=== PATIENT | male | born 1940 | race Caucasian/White ===

== ENCOUNTER 2021-10-16 19:14 | Emergency (ER) | payer OTHER ==
--- NOTE | 2021-10-16 21:09 | RAD REPORT ---
EXAM DESCRIPTION: CT - Head C Spine Cap Wo Con - 10/16/2021 8:10 pm CLINICAL HISTORY: Trauma, head and neck injury. Chest, abdomen and pelvis pain. PAIN COMPARISON: <Comparisons> TECHNIQUE: CT head without contrast. CT cervical spine without contrast with coronal and sagittal reformatted images. CT chest, abdomen and pelvis without contrast with coronal and sagittal reformatted images of the [facility]. All CT scans are performed using dose optimization technique as appropriate and may include automated exposure control or mA/KV adjustment according to patient size. FINDINGS: CT HEAD WITHOUT CONTRAST: No intracranial hemorrhage, hydrocephalus or extra-axial fluid collection. Moderate generalized brain atrophy is present with moderate periventricular and deep white matter chronic microvascular ischemi c changes. 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 The paranasal sinuses and mastoids are clear. The calvarium is intact. CT CERVICAL SPINE WITHOUT CONTRAST: No fracture or subluxation. Moderate lower cervical degenerative changes. The prevertebral soft tissu es are normal in thickness. CT CHEST, ABDOMEN, PELVIS WITHOUT CONTRAST: NOTE: Lack of contrast is a significant limitation in the assessment of trauma related findings. Spec ifically, solid organ, vascular and bowel evaluation is significantly limited. The lungs are clear.No pneumothorax or pericardial/pleural fluid. No evidence of intra-abdominal visceral injury, free fluid or free air is seen within the above detai led limitations. Bilateral nephrolithiasis without hydronephrosis. No concerning pelvic findings. Moderate multilevel spondylosis of the lumbar spine. IMPRESSION: Negative for acute traumatic findings within the above detailed limitations.
--- NOTE | 2021-10-16 21:30 | ER ---
Nurse's Notes [facility] Name: Emery Taylor Age: 80 yrs Sex: Male : 1940 Arrival Date: 10/16/2021 Time: 19:18 Bed 12 Private MD: Wyatt Mari Diagnosis: Unspecified injury of head, initial encounter;Abrasion of other part of head Presentation: 10/16 19:33 Chief complaint: Spouse and/or significant other states: patient was walking [place] and had a fall. patient is c/o pain in the left wrist, and has a laceration on the right side of head. patient takes baby aspirin daily. Coronavirus screen: Vaccine status: Patient reports receiving the 2nd dose of the covid vaccine. Ebola Screen: No symptoms or risks identified at this time. Initial Sepsis Screen: Does the patient meet any 2 criteria? No. Patient's initial sepsis screen is negative. Does the patient have a suspected source of infection? No. Patient's initial sepsis screen is negative. Risk Assessment: Do you want to hurt yourself or someone else? Patient reports no desire to harm self or others. Onset of symptoms was October 16, 2021. 19:33 Method Of Arrival: Ambulatory al4 19:33 Acuity: TARSHA 3 al4 Triage Assessment: 19:35 General: Appears in no apparent distress. comfortable, Behavior is calm, cooperative. al4 Pain: Complains of pain in top of head. Neuro: Level of Consciousness is awake, alert, obeys commands, Oriented to person, place, time, situation. Cardiovascular: Capillary refill < 3 seconds Patient's skin is warm and dry. Respiratory: Airway is patent Respiratory effort is unlabored, Respiratory pattern is regular. Injury Description: Laceration sustained to top of head. Historical: - Allergies: 19:35 No Known Allergies; al4 - Immunization history:: Adult Immunizations up to date, Client reports receiving the 2nd dose of the Covid vaccine. - Social history:: Smoking status: Patient reports use of chewing tobacco. Screenin:00 Abuse screen: Denies threats or abuse. Nutritional screening: No deficits noted. bb Tuberculosis screening: No symptoms or risk factors identified. Fall Risk Fall in past 12 months (25 points). No secondary diagnosis (0 pts). No IV (0 pts). Gait- Normal/Bed Rest/Wheelchair (0 pts) Mental Status- Oriented to own ability (0 pts). Total Cintron Fall Scale indicates Low Risk Score (25-44 pts). Fall prevention measures have been instituted. Side Rails Up X 2 Family Present and informed to notify staff if they need to leave bedside. Assessment: 20:00 General: Appears in no apparent distress. Behavior is calm, cooperative. Neuro: Level bb of Consciousness is awake, alert, obeys commands, Oriented to person, place, time, situation. Cardiovascular: Capillary refill < 3 seconds Patient's skin is warm and dry. Respiratory: Respiratory effort is even, unlabored. GI: No signs and/or symptoms were reported involving the gastrointestinal system. Derm: Skin is pink, warm \T\ dry. Derm: abrasion to head. Musculoskeletal: Circulation, motion, and sensation intact. Reports pain in left hand. Vital Signs: 19:30 BP 162 / 90; Pulse 85; Resp 22; Temp 99.1; Pulse Ox 95% ; Weight 90.72 kg; Height 5 ft. al4 9 in. (175.26 cm); Pain 1/10; 19:45 BP 159 / 88; Pulse 80; Resp 19; Temp 97.7; Pulse Ox 98% ; cs9 19:30 Body Mass Index 29.53 (90.72 kg, 175.26 cm) al4 ED Course: 19:18 Patient arrived in ED. es 19:18 Wyatt Mari MD is Private Physician. es 19:30 Arm band placed on right wrist. al4 19:35 Triage completed. al4 19:45 Marlo Nguyen MD is Attending Physician. kdr 20:00 Patient has correct armband on for positive identification. bb 20:00 No provider procedures requiring assistance completed. Patient did not have IV access bb during this emergency room visit. 20:09 CT Traumagram (Head C Spine CAP wo con) In Process Unspecified. EDMS 20:34 Aury Isidro, KHUSHBOO is Primary Nurse. bb 21:28 Wyatt Mari MD is Referral Physician. kdr Administered Medications: No medications were administered Outcome: 21:29 Discharge ordered by . kdr 21:40 Discharged to home ambulatory, with family, pt discharged by Dr Nguyen bb 21:40 Condition: stable 21:50 Patient left the ED. bb 10/17 03:24 Discharge instructions given to patient, by Dr Patrick faulkner Signatures: Dispatcher [employer] Marlo Roe MD MD kdr Salyer, Edna es Ballard, Brenda, RN RN Lyssa Gonzalez Yovani Ulloa al4 Corrections: (The following items were deleted from the chart) 10/16 19:35 19:35 Social history: Smoking status: Patient denies any tobacco usage or history of. al4 al4 19:39 19:33 Chief complaint: Spouse and/or significant other states: patient was walking [place] and had a fall. patient is c/o pain in the left wrist, and has a laceration on the right side of head al4
--- NOTE | 2021-10-16 21:30 | EDPHYS ---
Physician Documentation [facility] Name: Emery Taylor Age: 80 yrs Sex: Male : 1940 Arrival Date: 10/16/2021 Time: :18 Bed 12 Private MD: Wyatt Mari ED Physician Marlo Nguyen HPI: 10/16 21:04 This 80 yrs old Male presents to ER via Ambulatory with complaints of Fall Injury, Head kdr Injury-Adult, Wrist Injury. 21:04 Details of fall: The patient fell from an upright position, while walking. Onset: The kdr symptoms/episode began/occurred suddenly, today, at 15:30. Associated injuries: The patient sustained injury to the head, dorsum of left hand, abrasion. Severity of symptoms: At their worst the symptoms were mild, in the emergency department the symptoms are unchanged. The patient has not experienced similar symptoms in the past. The patient has not recently seen a physician. Patient denies LOC. He states that he tripped on the door threshold or some other object while entering the store. He has minimal complaints. Does not otherwise appear to be outside of his normal baseline. Historical: - Allergies: 19:35 No Known Allergies; al4 - Immunization history:: Adult Immunizations up to date, Client reports receiving the 2nd dose of the Covid vaccine. - Social history:: Smoking status: Patient reports use of chewing tobacco. ROS: 21:04 Constitutional: Negative for fever, chills, and weight loss, Eyes: Negative for injury, kdr pain, redness, and discharge, ENT: Negative for injury, pain, and discharge, Neck: Negative for injury, pain, and swelling, Cardiovascular: Negative for chest pain, palpitations, and edema, Respiratory: Negative for shortness of breath, cough, wheezing, and pleuritic chest pain, Abdomen/GI: Negative for abdominal pain, nausea, vomiting, diarrhea, and constipation, Back: Negative for injury and pain, : Negative for injury, bleeding, discharge, and swelling, Neuro: Negative for headache, weakness, numbness, tingling, and seizure activity. Psych: Negative for depression, anxiety, suicide ideation, homicidal ideation, and hallucinations, Allergy/Immunology: Negative for hives, rash, and allergies, Endocrine: Negative for neck swelling, polydipsia, polyuria, polyphagia, and marked weight changes, Hematologic/Lymphatic: Negative for swollen nodes, abnormal bleeding, and unusual bruising. 21:04 MS/extremity: Positive for abrasion, of the right temporal area and dorsum of left hand. Exam: 21:04 Constitutional: This is a well developed, well nourished patient who is awake, alert, kdr and in no acute distress. Eyes: Pupils equal round and reactive to light, extra-ocular motions intact. Lids and lashes normal. Conjunctiva and sclera are non-icteric and not injected. Cornea within normal limits. Periorbital areas with no swelling, redness, or edema. Neck: Trachea midline, no thyromegaly or masses palpated, and no cervical lymphadenopathy. Supple, full range of motion without nuchal rigidity, or vertebral point tenderness. No Meningismus. Chest/axilla: Normal chest wall appearance and motion. Nontender with no deformity. No lesions are appreciated. Cardiovascular: Regular rate and rhythm with a normal S1 and S2. No gallops, murmurs, or rubs. Normal PMI, no JVD. No pulse deficits. Respiratory: Lungs have equal breath sounds bilaterally, clear to auscultation and percussion. No rales, rhonchi or wheezes noted. No increased work of breathing, no retractions or nasal flaring. Abdomen/GI: Soft, non-tender, with normal bowel sounds. No distension or tympany. No guarding or rebound. No evidence of tenderness throughout. Back: No spinal tenderness. No costovertebral tenderness. Full range of motion. MS/ Extremity: Pulses equal, no cyanosis. Neurovascular intact. Full, normal range of motion. Neuro: Awake and alert, GCS 15, oriented to person, place, time, and situation. Cranial nerves II-XII grossly intact. Motor strength 5/5 in all extremities. Sensory grossly intact. Cerebellar exam normal. Normal gait. Psych: Awake, alert, with orientation to person, place and time. Behavior, mood, and affect are within normal limits. 21:04 Skin: injury, abrasion(s), very small abrasion noted, of the right temporal area and dorsum of left hand. Vital Signs: 19:30 BP 162 / 90; Pulse 85; Resp 22; Temp 99.1; Pulse Ox 95% ; Weight 90.72 kg; Height 5 ft. al4 9 in. (175.26 cm); Pain 1/10; 19:45 BP 159 / 88; Pulse 80; Resp 19; Temp 97.7; Pulse Ox 98% ; cs9 19:30 Body Mass Index 29.53 (90.72 kg, 175.26 cm) al4 MDM: 21:29 Patient medically screened. kdr 10/17 07:34 Data reviewed: vital signs, nurses notes, lab test result(s), radiologic studies. kdr Counseling: I had a detailed discussion with the patient and/or guardian regarding: the historical points, exam findings, and any diagnostic results supporting the discharge/admit diagnosis, lab results, radiology results, the need for outpatient follow up. 10/16 19:46 Order name: Accucheck kdr 10/16 19:46 Order name: Cardiac monitoring kdr 10/16 19:46 Order name: EKG - Nurse/Tech kdr 10/16 19:46 Order name: IV Saline Lock - Large Bore kdr 10/16 19:46 Order name: Labs collected and sent kdr 10/16 19:46 Order name: O2 Per Protocol kdr 10/16 19:50 Order name: CT Traumagram (Head C Spine CAP wo con) kdr 10/16 19:46 Order name: O2 Sat Monitoring kdr Administered Medications: No medications were administered Disposition Summary: 10/16/21 21:29 Discharge Ordered Location: Home kdr Problem: new kdr Symptoms: have improved kdr Condition: Stable kdr Diagnosis - Unspecified injury of head, initial encounter kdr - Abrasion of other part of head kdr Followup: kdr - With: Wyatt Mari MD - When: 2 - 3 days - Reason: If symptoms return, Further diagnostic work-up, Recheck today's complaints, Continuance of care, Re-evaluation by your physician Discharge Instructions: - Discharge Summary Sheet kdr - Abrasion, Yqzb-[id number] kdr - Head Injury, Adult, Aory-no-Anay kdr Forms: - Medication Reconciliation Form kdr - Thank You Letter kdr Signatures: Dispatcher [employer] Marlo Roe MD MD kdr Ledbetter, Alexis al4 Corrections: (The following items were deleted from the chart) 10/16 19:35 19:35 Social history: Smoking status: Patient denies any tobacco usage or history of. al4 al4 19:59 19:46 BLOOD CULTURE*+BA.LAB.BRZ ordered. EDMS EDMS 19:46 CBC+H.LAB.BRZ ordered. EDMS EDMS 19:46 COMPREHENSIVE METABOLIC PANEL+C.LAB.BRZ ordered. EDMS EDMS 19:46 LACTATE+C.LAB.BRZ ordered. EDMS EDMS 19:46 PROTIME (+INR)+COAG.LAB.BRZ ordered. EDMS EDMS 19:46 PTT, ACTIVATED+COAG.LAB.BRZ ordered. EDMS EDMS
[2021-10-16 23:09] VITALS: BP 159/88; TEMP 97.7; O2SAT 98
== END 2021-10-16 21:50 | disposition home or self-care (01) ==
LOC: ER 19:14
DX: S00.81XA Abrasion of other part of head, initial encounter (principal); S60.512A Abrasion of left hand, initial encounter; W01.0XXA Fall on same level from slipping, tripping and stumbling without subsequent striking against object, initial encounter; Y93.01 Activity, walking, marching and hiking; Y92.512 Supermarket, store or market as the place of occurrence of the external cause; F17.220 Nicotine dependence, chewing tobacco, uncomplicated
CPT/HCPCS: 70450; 71250; 72125; 99283

== ENCOUNTER 2021-10-22 17:22 | Emergency (ER) | payer OTHER ==
--- NOTE | 2021-10-22 18:44 | RAD REPORT ---
EXAM DESCRIPTION: CT - CTHCSPWOC - 10/22/2021 6:37 pm CLINICAL HISTORY: Trauma, head and neck injury. PAIN COMPARISON: Head C Spine Cap Wo Con dated 10/16/2021 TECHNIQUE: Axial 5 mm thick images of the head were obtained. Axial 2 mm thick images of the cervical spine were obtained with sagittal and coronal reconstruction images generated and reviewed. All CT scans are performed using dose optimization technique as appropriate and may include automated exposure control or mA/KV adjustment according to patient size. FINDINGS: CT HEAD WITHOUT CONTRAST: No acute hemorrhage, hydrocephalus or extra-axial collection is identified.Moderate generalized brain atrophy is present with moderate periventricular and deep white matter chronic microvascular ischemi c changes.No areas of brain edema or midline shift. Gliosis is seen right cerebellum, related to old infarct. The paranasal sinuses and mastoids are clear.The calvarium is intact. CT CERVICAL SPINE WITHOUT CONTRAST: No fracture or subluxation.Moderate midcervical degenerative spondylosis.No prevertebral soft tissues swelling is identified. IMPRESSION: No acute intracranial or cervical spine findings.
--- NOTE | 2021-10-22 19:08 | ER ---
Nurse's Notes [facility] Name: Emery Taylor Age: 80 yrs Sex: Male : 1940 Arrival Date: 10/22/2021 Time: 17:23 Bed 23 Private MD: Wyatt Mari Diagnosis: Unspecified injury of head, initial encounter;Laceration without foreign body of scalp Presentation: 10/22 17:37 Chief complaint: Patient states: Tripped just OIL PUMPER while going out to eat. Denies LOC. ll1 Laceration to top of head. Aspirin 81 mg PO daily. Coronavirus screen: Vaccine status: Patient reports receiving the 2nd dose of the covid vaccine. Client denies travel out of the [place] in the last 14 days. At this time, the client does not indicate any symptoms associated with coronavirus-19. Ebola Screen: Patient denies travel to an Ebola-affected area in the 21 days before illness onset. Initial Sepsis Screen: Does the patient meet any 2 criteria? No. Patient's initial sepsis screen is negative. Does the patient have a suspected source of infection? Yes: Skin breakdown/wound. Risk Assessment: Do you want to hurt yourself or someone else? Patient reports no desire to harm self or others. Onset of symptoms was October 22, 2021. 17:37 Method Of Arrival: Wheelchair ll1 17:37 Acuity: TARSHA 3 ll1 Triage Assessment: 17:38 General: Appears in no apparent distress. Behavior is calm, cooperative, appropriate ll1 for age. Pain: Denies pain. Derm: Wound noted scalp Wound is <6 cm laceration to top of head, no active bleeding. Historical: - Allergies: 17:36 [place] (Cucumis Sativus); ll1 - PMHx: 17:36 Diabetes mellitus; Hypercholesterolemia; colon CA; ll1 - PSHx: 17:36 colon CA SX; ll1 - Immunization history:: Client reports receiving the 2nd dose of the Covid vaccine, Last tetanus immunization: < 5 years ago. - Social history:: Smoking status: Patient reports use of chewing tobacco. Patient denies any tobacco usage or history of. Screenin:54 Abuse screen: Denies threats or abuse. Denies injuries from another. Tuberculosis cb5 screening: No symptoms or risk factors identified. Assessment: 17:30 General: Appears in no apparent distress. Behavior is calm, cooperative, appropriate cb5 for age. Pain: Denies pain. Neuro: Level of Consciousness is awake, alert, obeys commands, Oriented to person, place, time, situation, Appropriate for age. EENT: No deficits noted. Cardiovascular: No deficits noted. Respiratory: No deficits noted. GI: No deficits noted. : No deficits noted. Derm: laceration top of head. Musculoskeletal:. Injury Description: Laceration sustained to scalp. 19:10 Reassessment: PA in for closure of scalp laceration. Patient tolerated well. Pain: tk1 Denies pain. 19:49 Reassessment: Cleansed dried blood from hair and head with soap and water. Edges of tk1 laceration well approximated with staple closure. D/C per PA order. Discharge/Prescription instructions given to patient and . Verbalized understanding. Vital Signs: 17:37 BP 148 / 88; Pulse 80; Resp 16; Temp 97.7; Pulse Ox 95% on R/A; Weight 85.73 kg; Height ll1 5 ft. 9 in. (175.26 cm); Pain 0/10; 18:49 BP 146 / 87; Pulse 78; Resp 16; Pain 0/10; cb5 19:49 BP 155 / 88 LA Supine (auto/); Pulse 68 MON; Resp 20 S; Temp 97.5(O); Pulse Ox 98% on tk1 R/A; Pain 0/10; 17:37 Body Mass Index 27.91 (85.73 kg, 175.26 cm) ll1 ED Course: 17:23 Patient arrived in ED. am2 17:23 Wyatt Mari MD is Private Physician. am2 17:31 Marlo Nguyen MD is Attending Physician. kdr 17:36 Arm band placed on Patient placed in an exam room, on a stretcher. ll1 17:38 Triage completed. ll1 17:52 Fabiola Loo, KHUSHBOO is Primary Nurse. cb5 17:54 Patient has correct armband on for positive identification. Fall risk band placed. Bed cb5 in low position. Side rails up X2. 18:38 CT Head C Spine In Process Unspecified. EDMS 19:04 Report given to KHUSHBOO Swift. cb5 19:06 Wyatt Mari MD is Referral Physician. kdr 19:49 No provider procedures requiring assistance completed. Patient did not have IV access tk1 during this emergency room visit. Administered Medications: No medications were administered Outcome: 19:08 Discharge ordered by . kdr 19:49 Discharged to home ambulatory, with family. tk1 19:49 Condition: stable 19:49 Discharge instructions given to patient, family, Instructed on discharge instructions, follow up and referral plans. no driving heavy equipment, Demonstrated understanding of instructions, follow-up care, medications, Prescriptions given X 1. 19:52 Patient left the ED. tk1 Signatures: Dispatcher [employer] EDMS Marlo Nguyen MD MD kdr Vee Clement am2 Kathryn Montelongo, RN RN ll1 Jeniffer Mir tk1 Fabiola Loo, RN RN cb5 Corrections: (The following items were deleted from the chart) 17:39 17:37 Chief complaint: Patient states: Tripped just OIL PUMPER while going out to eat. Denies ll1 LOC. Laceration to top of head. ll1
--- NOTE | 2021-10-22 19:08 | EDPHYS ---
Physician Documentation [facility] Name: Emery Taylor Age: 80 yrs Sex: Male : 1940 Arrival Date: 10/22/2021 Time: 17:23 Bed 23 Private MD: Wyatt Mari ED Physician Marlo Nguyen HPI: 10/22 19:00 This 80 yrs old Male presents to ER via Wheelchair with complaints of Fall Injury, Head kdr Injury-Adult. 19:00 Details of fall: The patient fell from an upright position, while walking. Onset: The kdr symptoms/episode began/occurred suddenly, just prior to arrival. Associated injuries: The patient sustained injury to the head. Severity of symptoms: At their worst the symptoms were mild, in the emergency department the symptoms are unchanged. The patient has experienced a previous episode, Patient fell last week hitting his head as well. He had no significant injury at that time. He was discharged in good condition.. The patient has been recently seen by a physician: The patient has been recently seen at the [facility] Emergency Department, last week. Historical: - Allergies: 17:36 [place] (Cucumis Sativus); ll1 - PMHx: 17:36 Diabetes mellitus; Hypercholesterolemia; colon CA; ll1 - PSHx: 17:36 colon CA SX; ll1 - Immunization history:: Client reports receiving the 2nd dose of the Covid vaccine, Last tetanus immunization: < 5 years ago. - Social history:: Smoking status: Patient reports use of chewing tobacco. Patient denies any tobacco usage or history of. ROS: 19:00 Constitutional: Negative for fever, chills, and weight loss, Eyes: Negative for injury, kdr pain, redness, and discharge, ENT: Negative for injury, pain, and discharge, Neck: Negative for injury, pain, and swelling, Cardiovascular: Negative for chest pain, palpitations, and edema, Respiratory: Negative for shortness of breath, cough, wheezing, and pleuritic chest pain, Abdomen/GI: Negative for abdominal pain, nausea, vomiting, diarrhea, and constipation, Back: Negative for injury and pain, : Negative for injury, bleeding, discharge, and swelling, MS/Extremity: Negative for injury and deformity, Skin: Negative for injury, rash, and discoloration, patient does have a 2 to 3 cm laceration of the right occipital parietal area. It is well approximated in his natural state Neuro: Negative for headache, weakness, numbness, tingling, and seizure activity. Psych: Negative for depression, anxiety, suicide ideation, homicidal ideation, and hallucinations, Allergy/Immunology: Negative for hives, rash, and allergies, Endocrine: Negative for neck swelling, polydipsia, polyuria, polyphagia, and marked weight changes, Hematologic/Lymphatic: Negative for swollen nodes, abnormal bleeding, and unusual bruising. Exam: 19:00 Constitutional: This is a well developed, well nourished patient who is awake, alert, kdr and in no acute distress. Eyes: Pupils equal round and reactive to light, extra-ocular motions intact. Lids and lashes normal. Conjunctiva and sclera are non-icteric and not injected. Cornea within normal limits. Periorbital areas with no swelling, redness, or edema. Neck: Trachea midline, no thyromegaly or masses palpated, and no cervical lymphadenopathy. Supple, full range of motion without nuchal rigidity, or vertebral point tenderness. No Meningismus. Chest/axilla: Normal chest wall appearance and motion. Nontender with no deformity. No lesions are appreciated. Cardiovascular: Regular rate and rhythm with a normal S1 and S2. No gallops, murmurs, or rubs. Normal PMI, no JVD. No pulse deficits. Respiratory: Lungs have equal breath sounds bilaterally, clear to auscultation and percussion. No rales, rhonchi or wheezes noted. No increased work of breathing, no retractions or nasal flaring. Abdomen/GI: Soft, non-tender, with normal bowel sounds. No distension or tympany. No guarding or rebound. No evidence of tenderness throughout. Back: No spinal tenderness. No costovertebral tenderness. Full range of motion. Skin: Warm, dry with normal turgor. Normal color with no rashes, no lesions, and no evidence of cellulitis. MS/ Extremity: Pulses equal, no cyanosis. Neurovascular intact. Full, normal range of motion. Neuro: Awake and alert, GCS 15, oriented to person, place, time, and situation. Cranial nerves II-XII grossly intact. Motor strength 5/5 in all extremities. Sensory grossly intact. Cerebellar exam normal. Normal gait. Psych: Awake, alert, with orientation to person, place and time. Behavior, mood, and affect are within normal limits. 19:00 Head/face: Noted is contusion, a laceration(s), that is superficial, that is linear, 3 cm(s). Vital Signs: 17:37 BP 148 / 88; Pulse 80; Resp 16; Temp 97.7; Pulse Ox 95% on R/A; Weight 85.73 kg; Height ll1 5 ft. 9 in. (175.26 cm); Pain 0/10; 18:49 BP 146 / 87; Pulse 78; Resp 16; Pain 0/10; cb5 19:49 BP 155 / 88 LA Supine (auto/); Pulse 68 MON; Resp 20 S; Temp 97.5(O); Pulse Ox 98% on tk1 R/A; Pain 0/10; 17:37 Body Mass Index 27.91 (85.73 kg, 175.26 cm) ll1 MDM: 19:00 Data reviewed: vital signs, nurses notes, lab test result(s), radiologic studies. kdr Counseling: I had a detailed discussion with the patient and/or guardian regarding: the historical points, exam findings, and any diagnostic results supporting the discharge/admit diagnosis, lab results, radiology results, the need for outpatient follow up. 19:08 Patient medically screened. kdr 10/22 18:11 Order name: CT Head C Spine; Complete Time: 18:59 kdr Administered Medications: No medications were administered Disposition Summary: 10/22/21 19:08 Discharge Ordered Location: Home kdr Problem: new kdr Symptoms: have improved kdr Condition: Stable kdr Diagnosis - Unspecified injury of head, initial encounter kdr - Laceration without foreign body of scalp kdr Followup: kdr - With: Wyatt Mari MD - When: 2 - 3 days - Reason: If symptoms return, Further diagnostic work-up, Recheck today's complaints, Continuance of care, Re-evaluation by your physician Discharge Instructions: - Discharge Summary Sheet kdr - Head Injury, Adult, [id number] kdr - Sutures, [place], or Adhesive Wound Closure, [id number] kdr Forms: - Medication Reconciliation Form kdr - Thank You Letter kdr - Antibiotic Education kdr Prescriptions: - Cephalexin 500 mg Oral Capsule - take 1 capsule by ORAL route every 8 hours for 5 days; 15 capsule; Refills: 0, kdr Product Selection Permitted Signatures: Dispatcher [employer] Marlo Roe MD MD kdr Kathryn Montelongo RN RN ll1
[2021-10-22 20:39] VITALS: BP 155/88; TEMP 97.5; O2SAT 98
== END 2021-10-22 19:52 | disposition home or self-care (01) ==
LOC: ER 17:22
DX: S01.01XA Laceration without foreign body of scalp, initial encounter (principal); W19.XXXA Unspecified fall, initial encounter; E11.9 Type 2 diabetes mellitus without complications; E78.00 Pure hypercholesterolemia, unspecified; F17.220 Nicotine dependence, chewing tobacco, uncomplicated; Z85.038 Personal history of other malignant neoplasm of large intestine; Z91.018 Allergy to other foods
CPT/HCPCS: 70450; 72125; 99283

== ENCOUNTER 2022-07-22 17:13 | Emergency (ER) | payer OTHER ==
[2022-07-22] MEDS ORDERED: LIDOCAINE 1% MPF 30 ML VIAL ONE (17:42)
[2022-07-22] MEDS ORDERED: TDAP (DIPHTH,PERTUSS(ACELL),TET VAC) 0.5 ML VIAL IMVAC ONE (17:49)
--- NOTE | 2022-07-22 17:58 | RAD REPORT ---
EXAM DESCRIPTION: CT - Head Brain Wo Cont - 07/22/2022 5:45 pm CLINICAL HISTORY: head injury COMPARISON: Facial Bones W/ Mpr dated 07/22/2022; Head C Spine Cap Wo Con dated 10/16/2021 TECHNIQUE: All CT scans are performed using dose optimization technique as appropriate and may inclu de automated exposure control or mA/KV adjustment according to patient size. FINDINGS: Bifrontal cortical infarcts are remote. Remote right cerebellar infarcts. No acute intracr anial hemorrhage. No mass effect or midline shift. Moderate chronic small vessel ischemic changes. Ag e advanced cerebral atrophy. The paranasal sinuses and mastoids are clear. The calvarium is intact. IMPRESSION: No acute intracranial abnormality. Remote infarcts.
--- NOTE | 2022-07-22 18:03 | RAD REPORT ---
EXAM DESCRIPTION: CT - CTFB CLINICAL HISTORY: head injury, fall COMPARISON: No comparisons TECHNIQUE: Axial 2 mm thick images of the face were obtained with sagittal and coronal reconstructio n images. All CT scans are performed using dose optimization technique as appropriate and may include automated exposure control or mA/KV adjustment according to patient size. FINDINGS: Acute mandible fracture. Slightly displaced fracture near the midline of the mandible at t he mental protuberance. The fracture line extends between the central incisors. Comminuted fracture w ith dislocation at the left temporomandibular joint. The fracture involves the left mandibular condyl e which is dislocated anteriorly. No other fractures are identified. IMPRESSION: Acute fracture/dislocation at the mandible. No other facial fractures identified.
--- NOTE | 2022-07-22 18:48 | ER ---
Nurse's Notes [facility] Name: Emery aTylor Age: 81 yrs Sex: Male : 1940 Arrival Date: 07/22/2022 Time: 17:16 Bed 20 Private MD: Diagnosis: Displaced mandible fracture;Comminuted fracture with dislocation of left TMJ;Fall on same level from slipping, tripping and stumbling without subsequent striking against object;Laceration without foreign body of scalp;Laceration of chin;Contusion of left knee;Contusion of right knee Presentation: 07/22 17:34 Chief complaint: EMS states: Walking out of [employer], trip and fall. Hit a pole with ll1 head. 2 lacs to face. Abrasions knee/hands. No LOC. Baby aspirin daily. Coronavirus screen: Vaccine status: Patient reports receiving the 2nd dose of the covid vaccine. Client denies travel out of the [place] in the last 14 days. At this time, the client does not indicate any symptoms associated with coronavirus-19. Ebola Screen: Patient denies travel to an Ebola-affected area in the 21 days before illness onset. Initial Sepsis Screen: Does the patient meet any 2 criteria? No. Patient's initial sepsis screen is negative. Does the patient have a suspected source of infection? No. Patient's initial sepsis screen is negative. Risk Assessment: Do you want to hurt yourself or someone else? Patient reports no desire to harm self or others. Onset of symptoms was July 22, 2022. 17:34 Method Of Arrival: EMS ll1 17:34 Acuity: TARSHA 3 ll1 Triage Assessment: 17:36 General: Appears uncomfortable, Behavior is calm, cooperative, appropriate for age. ll1 Pain: Complains of pain in head Quality of pain is described as aching. Neuro: Reports headache. Cardiovascular: No deficits noted. Respiratory: No deficits noted. Derm: abrasions arms/knee. Historical: - Allergies: 17:34 [place] (Cucumis Sativus); ll1 17:34 Codeine; ll1 - PMHx: 17:34 COLON CA; diabetes mellitus; Hypercholesterolemia; ll1 - PSHx: 17:34 colon CA SX; ll1 - Immunization history:: Adult Immunizations up to date, Last tetanus immunization: unknown. - Social history:: Smoking status: Patient denies any tobacco usage or history of. Screenin:37 [facility] ED Fall Risk Assessment (Adult) History of falling in the last 3 months, ll1 including since admission Yes- single mechanical fall (1 pt) Impaired Gait Yes (1 pt) Mobility Assist Device Used Yes (1 pt) Score/Fall Risk Level 3 or more points = High Risk Oriented to surroundings, Maintained a safe environment, Educated pt \T\ family on fall prevention, incl call for assistance when getting out of bed, Hourly rounding (assess needs \T\ fall precautionary measures) done. Abuse screen: Denies threats or abuse. Nutritional screening: No deficits noted. Tuberculosis screening: No symptoms or risk factors identified. Assessment: 18:02 Reassessment: No changes from previously documented assessment. Patient and/or family ll1 updated on plan of care and expected duration. Pain level reassessed. 18:13 Reassessment: No changes from previously documented assessment. Patient and/or family ll1 updated on plan of care and expected duration. Pain level reassessed. 18:59 Reassessment: No changes from previously documented assessment. Patient and/or family ll1 updated on plan of care and expected duration. Pain level reassessed. 19:22 General: This RN assisted pt in removing his rings and his watch. The jewelry was given kd3 to the to take home before transfer. . Neuro: Level of Consciousness is awake, alert, obeys commands, Oriented to person, place, time, situation. Respiratory: Airway is patent Trachea midline Respiratory effort is even, unlabored, Respiratory pattern is regular, symmetrical. Vital Signs: 18:02 BP 171 / 90; Pulse 70; Resp 16; Temp 97.8; Pulse Ox 100% on R/A; Pain 0/10; ll1 19:03 BP 158 / 87; Pulse 81; Pulse Ox 98% ; ll1 ED Course: 17:16 Patient arrived in ED. rg4 17:16 Pauly Barakat FNP-C is [facility]. kb 17:16 Harjinder Taylor MD is Attending Physician. kb 17:34 Kathryn Montelongo, KHUSHBOO is Primary Nurse. ll1 17:34 Arm band placed on Patient placed in an exam room, on a stretcher. ll1 17:36 Triage completed. ll1 17:37 Patient has correct armband on for positive identification. Bed in low position. Call ll1 light in reach. Client placed on continuous cardiac and pulse oximetry monitoring. NIBP monitoring applied. 17:47 Head Brain Wo Cont In Process Unspecified. EDMS 17:47 CT Facial Bones W/O Con In Process Unspecified. EDMS 18:13 Wound care: to abrasion, located on left arm, right leg and left leg was cleaned with ll1 with saline, tolerated well. 18:50 Inserted saline lock: 22 gauge in right wrist, using aseptic technique. Blood collected.ll1 19:04 No provider procedures requiring assistance completed. Patient transferred, IV remains ll1 in place. 19:12 Primary Nurse role handed off by Kathryn Montelongo RN mw2 19:19 Jane Forman RN is Primary Nurse. kd3 Administered Medications: 17:48 Drug: Tetanus-Diphtheria Toxoid Adult 0.5 ml {Furnishings Conservator: [employer] ([employer]). Exp: ll1 04/24/2023. Lot #: [id number]. } Route: IM; Site: right deltoid; 19:02 Follow up: Response: No adverse reaction ll1 19:02 Drug: Lidocaine (1 %) 1 vials {Note: by Mitch Barakat during suture repair.} Volume: 20 ll1 ml; Route: Infiltration; 19:05 Follow up: Response: No adverse reaction ll1 19:20 Drug: morphine 2 mg Route: IVP; Infused Over: 4 mins; Site: right wrist; kd3 19:32 Follow up: Response: No adverse reaction as6 19:20 Drug: Zofran (Ondansetron) 4 mg Route: IVP; Site: right wrist; kd3 19:32 Follow up: Response: No adverse reaction as6 Medication: 17:37 VIS not applicable for this client. Vaccine Information Statement (VIS) provided today. ll1 Questions and/or concerns addressed. VIS edition date: March 06, 2021. Outcome: 18:47 ER care complete, transfer ordered by MD. gorman 19:04 Transferred by ground EMS to [facility], Transfer form completed. ll1 19:04 Condition: stable 19:36 Patient left the ED. as6 Signatures: Dispatcher [employer] EDMS Pauly Barakat, CALI HIRED WORKER-Lise Bravo rg4 Bailee Gaspar mw2 Kathryn Montelongo RN RN ll1 Luiz Harris, KHUSHBOO RN as6 Jane Forman RN RN kd3 Corrections: (The following items were deleted from the chart) 18:04 17:37 VIS not applicable for this client. ll1 ll1
--- NOTE | 2022-07-22 18:48 | EDPHYS ---
Physician Documentation [facility] Name: Emery Taylor Age: 81 yrs Sex: Male : 1940 Arrival Date: 07/22/2022 Time: 17:16 Bed 20 Private MD: ED Physician Harjinder Taylor HPI: 07/22 18:45 This 81 yrs old Male presents to ER via EMS with complaints of fall, laceration of chin kb and head, dental injury. 18:45 Details of fall: The patient fell from an upright position, while walking. Onset: The kb symptoms/episode began/occurred just prior to arrival. Associated injuries: The patient sustained injury to the head, laceration, of the chin and right frontal area. The patient has not recently seen a physician. 18:51 Severity of symptoms: At their worst the symptoms were moderate, in the emergency kb department the symptoms are unchanged. The patient has not experienced similar symptoms in the past. Pt tripped while at [employer] and fell hitting head on pole of cart. Pt fell to hands and knees. Pt denies any pain. Contusions noted to bilateral knees and right middle finger, but pt does not want any x-rays done. Full ROM of extremities. Denies loc. Ambulatory on scene. Historical: - Allergies: 17:34 [place] (Cucumis Sativus); ll1 17:34 Codeine; ll1 - PMHx: 17:34 COLON CA; diabetes mellitus; Hypercholesterolemia; ll1 - PSHx: 17:34 colon CA SX; ll1 - Immunization history:: Adult Immunizations up to date, Last tetanus immunization: unknown. - Social history:: Smoking status: Patient denies any tobacco usage or history of. ROS: 18:44 Constitutional: Negative for fever, chills, and weight loss. kb 18:44 MS/extremity: Positive for contusion, of the right knee and right middle finger and left knee. 18:44 Skin: Positive for laceration(s), of the chin and right frontal area. 18:44 All other systems are negative. Exam: 18:28 Constitutional: This is a well developed, well nourished patient who is awake, alert, kb and in no acute distress. ENT: Moist Mucous membranes Neck: Trachea midline, no thyromegaly or masses palpated, and no cervical lymphadenopathy. Supple, full range of motion without nuchal rigidity, or vertebral point tenderness. No Meningismus. Chest/axilla: Normal chest wall appearance and motion. Cardiovascular: Regular rate and rhythm with a normal S1 and S2. No gallops, murmurs, or rubs. No pulse deficits. Respiratory: Respirations even and unlabored. No increased work of breathing. Talking in full sentences Abdomen/GI: Soft, non-tender. No distention Back: No spinal tenderness. No costovertebral tenderness. Full range of motion. Neuro: Awake and alert, GCS 15, oriented to person, place, time, and situation. Moves all extremities. Normal gait. Psych: Awake, alert, with orientation to person, place and time. Behavior, mood, and affect are within normal limits. 18:28 ENT: Dental exam: misalignment of #24 and #25 teeth. 18:28 Musculoskeletal/extremity: Extremities: grossly normal except: noted in the left knee: abrasion, contusion, ecchymosis, swelling, tenderness, noted in the right middle finger: ecchymosis, swelling, noted in the right knee: abrasion, contusion, ecchymosis, swelling, ROM: intact in all extremities, Circulation is intact in all extremities. Sensation intact. Weight bearing: able to fully bear weight. 18:28 Skin: injury, laceration(s), the wound is approximately 3 cm(s), of the right frontal area, the second wound is approximately 2 cm(s), of the chin, that can be described as clean, no foreign body, linear, with mild bleeding. Vital Signs: 18:02 BP 171 / 90; Pulse 70; Resp 16; Temp 97.8; Pulse Ox 100% on R/A; Pain 0/10; ll1 19:03 BP 158 / 87; Pulse 81; Pulse Ox 98% ; ll1 Laceration: 19:20 Wound Repair of 3cm ( 1.2in ) subcutaneous laceration to right frontal area. Linear kb shaped.. Distal neuro/vascular/tendon intact. Anesthesia: Wound infiltrated with 2 mls of 1% lidocaine. Wound prep: Extensive cleansing with hibiclenz by me, Wound irrigation with saline by nc. Skin closed with 4 5-0 Prolene using simple sutures and sterile technique. Patient tolerated well. 19:20 Wound Repair of 2cm ( 0.8in ) subcutaneous laceration to chin. Linear shaped.. Distal kb neuro/vascular/tendon intact. Anesthesia: Wound infiltrated with 2 mls of 1% lidocaine. Wound prep: Extensive cleansing with hibiclenz by me, Wound irrigation with saline by me. Skin closed with 3 5-0 Prolene using simple sutures and sterile technique. Patient tolerated well. MDM: 17:16 Patient medically screened. kb 18:44 Data reviewed: vital signs, nurses notes. Data interpreted: Pulse oximetry: on room air kb is 100 %. Interpretation: normal. Counseling: I had a detailed discussion with the patient and/or guardian regarding: the historical points, exam findings, and any diagnostic results supporting the discharge/admit diagnosis, radiology results, the need to transfer to another facility. 07/22 18:44 Order name: CBC with Diff; Complete Time: 19:21 kb 07/22 18:44 Order name: Basic Metabolic Panel; Complete Time: 19:25 kb 07/22 17:18 Order name: CT Head Brain wo Cont kb 07/22 17:18 Order name: CT Facial Bones W/O Con; Complete Time: 18:03 kb 07/22 17:22 Order name: Head Brain Wo Cont; Complete Time: 18:02 EDMS 07/22 17:19 Order name: Gloves, Sterile; Complete Time: 17:43 kb 07/22 17:19 Order name: Setup Suture Tray; Complete Time: 17:43 kb 07/22 18:44 Order name: IV Start; Complete Time: 18:46 kb Administered Medications: 17:48 Drug: Tetanus-Diphtheria Toxoid Adult 0.5 ml {Product Developer: [employer] ([employer]). Exp: ll1 04/24/2023. Lot #: [id number]. } Route: IM; Site: right deltoid; 19:02 Follow up: Response: No adverse reaction ll1 19:02 Drug: Lidocaine (1 %) 1 vials {Note: by Mitch Barakat during suture repair.} Volume: 20 ll1 ml; Route: Infiltration; 19:05 Follow up: Response: No adverse reaction ll1 19:20 Drug: morphine 2 mg Route: IVP; Infused Over: 4 mins; Site: right wrist; kd3 19:32 Follow up: Response: No adverse reaction as6 19:20 Drug: Zofran (Ondansetron) 4 mg Route: IVP; Site: right wrist; kd3 19:32 Follow up: Response: No adverse reaction as6 Disposition: 07/23 19:26 Co-signature as Attending Physician, Harjinder Taylor MD I agree with the assessment and rt plan of care. Disposition Summary: 07/22/22 18:47 Transfer Ordered Transfer Location: [facility] kb Reason: Higher level of care kb Condition: Stable kb Problem: new kb Symptoms: are unchanged kb Accepting Physician: Dr Alejo(07/22/22 19:36) as6 Diagnosis - Displaced mandible fracture kb - Comminuted fracture with dislocation of left TMJ kb - Fall on same level from slipping, tripping and stumbling without subsequent kb striking against object - Laceration without foreign body of scalp kb - Laceration of chin kb - Contusion of left knee kb - Contusion of right knee kb Discharge Instructions: - Discharge Summary Sheet kj1 Forms: - Medication Reconciliation Form kb - SBAR form kj1 Signatures: Dispatcher [employer] EDMS Pauly Barakat, CUSTOMER SECURITY CLERK-C CUSTOMER SECURITY CLERK-CkKathryn Claire, RN RN ll1 Luiz Harris RN RN as6 Jane Forman RN RN kd3 Harjinder Taylor MD MD rt Corrections: (The following items were deleted from the chart) 07/22 18:47 18:47 Melo gorman kb 18:47 18:47 Dr Melo gorman kb 18:49 18:47 Dr Melo gorman kb 19:36 18:49 Dr Melo gorman as6
[2022-07-22 19:11] LABS: Absolute Lymphocytes (CBC) 1.3 K/uL (0.7-4.9); Hematocrit 37.8 % (39.6-49.0); MCV 84.8 fL (80-100); MPV 8.3 fL (7.6-11.3); RBC Red Blood Cell Count 4.46 M/uL (4.33-5.43)
[2022-07-22] MEDS ORDERED: ONDANSETRON 4 MG/2 ML VIAL ONE (19:14)
[2022-07-22] MEDS ORDERED: MORPHINE 2 MG/ML SYR ONE (19:14)
[2022-07-22 19:23] LABS: Potassium 4.9 mmol/L (3.5-5.1)
[2022-07-22 19:44] VITALS: TEMP 97.8
[2022-07-22 19:50] VITALS: BP 158/87; O2SAT 98
[2022-07-22] MEDS ORDERED: PROMETHAZINE INJ 25 MG/ML AMP ONE (21:24)
[2022-07-22] MEDS ORDERED: NA CHLORIDE 0.9% 50 ML IV ONE (21:26)
== END 2022-07-22 19:36 | disposition short-term general hospital (02) ==
LOC: ER 17:13
PROC: 0JQ10ZZ Repair Face Subcutaneous Tissue and Fascia, Open Approach (ICD-10-PCS; principal; 2022-07-22)
DX: S02.612A Fracture of condylar process of left mandible, initial encounter for closed fracture (principal); S01.81XA Laceration without foreign body of other part of head, initial encounter; S01.01XA Laceration without foreign body of scalp, initial encounter; S80.02XA Contusion of left knee, initial encounter; S80.01XA Contusion of right knee, initial encounter; W01.0XXA Fall on same level from slipping, tripping and stumbling without subsequent striking against object, initial encounter; E11.9 Type 2 diabetes mellitus without complications; Z23 Encounter for immunization; Z88.5 Allergy status to narcotic agent; Z91.018 Allergy to other foods
CPT/HCPCS: 85025; 80048; 36415; 70450; 70486; 76377; 90471; 96375; 96374; 99285; 12013; J2550; J2001; J2270; J2405

== ENCOUNTER 2022-07-30 10:06 | Observation (INO) | payer OTHER ==
[2022-07-30 11:46] LABS: Absolute Lymphocytes (CBC) 1.4 K/uL (0.7-4.9); Hematocrit 36.1 % (39.6-49.0); Lymphocytes % 21.1 % (15.3-44.8); MCV 84.9 fL (80-100); MPV 7.7 fL (7.6-11.3); RBC Red Blood Cell Count 4.26 M/uL (4.33-5.43)
[2022-07-30 12:01] LABS: Potassium 5.4 mmol/L (3.5-5.1)
--- NOTE | 2022-07-30 12:05 | RAD REPORT ---
EXAM DESCRIPTION: CT - Head Brain Wo Cont - 07/30/2022 11:49 am CLINICAL HISTORY: ams COMPARISON: Head Brain Wo Cont dated 07/22/2022 TECHNIQUE: Axial 5 mm thick images of the head were obtained without IV contrast. All CT scans are performed using dose optimization technique as appropriate and may include automated exposure control or mA/KV adjustment according to patient size. FINDINGS: No intracranial hemorrhage, mass, edema or shift of mid-line structures. No acute infarcti on changes seen. No cortical edema or sulcal effacement. Patient has moderate severity atrophy and ch ronic ischemic change. Ventricles are in proportion to volume loss. Focal right cerebellum encephalom alacia changes are present from prior ischemic injury. The intracranial findings match the July 02 short interval study. Mastoid air cells and visualized portions of the paranasal sinuses are clear. No acute bony findings. IMPRESSION: No acute intracranial finding. Atrophy, chronic ischemic change and old right cerebellum CVA changes match the short interval [facility] er study.
--- NOTE | 2022-07-30 12:14 | RAD REPORT ---
EXAM DESCRIPTION: CT - Soft Tissue Neck W/Contr - 07/30/2022 11:50 am CLINICAL HISTORY: r/o abscess COMPARISON: Head C Spine Mpr Wo Con dated 10/22/2021; Head Brain Wo Cont dated 07/30/2022 TECHNIQUE: During dynamic enhancement using 100 milliliters nonionic IV contrast, axial 5 millimeter thick images of the neck were obtained. All CT scans are performed using dose optimization technique as appropriate and may include automated exposure control or mA/KV adjustment according to patient size. FINDINGS: Intracranial findings are detailed in the separate CT head report. No globe or orbital con tent abnormality. The mastoid air cells are clear. No acute vascular finding identified. Patient has very little vascular calcification. Prominent cervical spine degenerative changes are present. These are most pronounced at C4-5 and C5-6 . Multilevel bony foraminal encroachment seen from C3-4 through C5-6. There is reversal of the usual cervical lordosis with the apex at C4. Mandible is fractured at the midline. There is surrounding soft tissue edema and contusion. The left mandibular condyle is fractured as well with the articular head of the condyle displaced anteriorly t o the ramus and dislocated from the glenoid fossa. No pharyngeal mucosal mass or asymmetry. No tonsil or tongue base abnormality. The parotid, submandib ular and thyroid gland tissue show no suspicious findings. No abscess in the soft tissues. IMPRESSION: The mandible is fractured. There is a fracture in the midline mandible with very minimal displacement or offset of the fracture fragments. Additionally, the left mandibular condyle is fract ured with the articular head displaced anteriorly relative to the ramus and the articular head is dis located from the glenoid fossa. There is soft tissue swelling adjacent to the fracture sites. There is no abscess identified in the s oft tissues.
[2022-07-30] MEDS ORDERED: NA CHLORIDE 0.9% 500 ML ONE (12:46)
--- NOTE | 2022-07-30 13:45 | EDPHYS ---
Physician Documentation [facility] Name: Emery Taylor Age: 81 yrs Sex: Male : 1940 Arrival Date: 07/30/2022 Time: 10:10 Bed 12 Private MD: Wyatt Mari ED Physician Arpan Krishnamurthy HPI: 07/30 14:01 This 81 yrs old Male presents to ER via Wheelchair with complaints of Altered Mental kb Status, Cellulitis. 14:01 The patient presents with slowed speech. Onset: The symptoms/episode began/occurred at an unknown time. Possible causes: unknown. Associated signs and symptoms: The patient has no apparent associated signs or symptoms. Current symptoms: In the emergency department the patient's symptoms are unchanged from the initial presentation. Patient's baseline: Neuro: alert and fully oriented, Motor: no deficits, Ambulation: walks without assistance, Speech: normal. The patient has not experienced similar symptoms in the past. The patient has been recently seen by a physician: the patient's primary care provider, with similar presenting complaints, and was sent to the [facility] Emergency Department for further evaluation. Pt was seen at Dr Mari's office to have sutures removed from lacerations sustained last week. . Historical: - Allergies: 10:36 Codeine; iw 10:36 [place] (Cucumis Sativus); iw - PMHx: 10:36 COLON CA; diabetes mellitus; Hypercholesterolemia; iw - PSHx: 10:36 colon CA SX; iw ROS: 13:57 Constitutional: Negative for fever, chills, and weight loss. kb 13:57 Skin: Positive for ecchymosis, of the chin and neck. 13:57 Neuro: Positive for altered mental status. 13:57 All other systems are negative. Exam: 13:57 Constitutional: This is a well developed, well nourished patient who is awake, alert, kb and in no acute distress. Head/Face: Normocephalic, atraumatic. ENT: Moist Mucous membranes Cardiovascular: Regular rate and rhythm with a normal S1 and S2. No gallops, murmurs, or rubs. No pulse deficits. Respiratory: Respirations even and unlabored. No increased work of breathing. Talking in full sentences Abdomen/GI: Soft, non-tender. No distention MS/ Extremity: Pulses equal, no cyanosis. Neurovascular intact. Full, normal range of motion. Neuro: Awake and alert, GCS 15, oriented to person, place, time, and situation. Moves all extremities. Normal gait. Psych: Awake, alert, with orientation to person, place and time. Behavior, mood, and affect are within normal limits. 13:57 Skin: ecchymosis to chin and neck, sutures in place to chin. 13:57 Neuro: Cranial nerves: Speech is slowed. Vital Signs: 10:32 BP 137 / 76; Pulse 72; Resp 16; Temp 98.0; Pulse Ox 100% on R/A; Weight 87.09 kg; iw Height 5 ft. 9 in. (175.26 cm); 10:32 Body Mass Index 28.35 (87.09 kg, 175.26 cm) iw Procedures: 14:00 Suture/Staple removal: Removed 3 sutures, from chin, site appears well healed, Patient kb tolerated well. MDM: 10:36 Patient medically screened. kb 13:39 Data reviewed: vital signs, nurses notes. Data interpreted: Pulse oximetry: on room air kb is 100 %. Interpretation: normal. Counseling: I had a detailed discussion with the patient and/or guardian regarding: the historical points, exam findings, and any diagnostic results supporting the discharge/admit diagnosis, lab results, radiology results, the need for further work-up and treatment in the hospital. Physician consultation: Ty oHyos NP was contacted at 13:39, regarding admission, patient's condition. 07/30 10:47 Order name: CBC with Diff; Complete Time: 11:50 kb 07/30 10:47 Order name: Basic Metabolic Panel; Complete Time: 12:01 kb 07/30 10:47 Order name: Blood Culture Adult (2) kb 07/30 10:47 Order name: Lactate w/ 2H reflex if indic.; Complete Time: 12:30 kb 07/30 12:05 Order name: CREATININE WHOLE BLOOD; Complete Time: 12:08 EDMS 07/30 14:09 Order name: SARS RAPID; Complete Time: 15:33 eb 07/30 15:00 Order name: Magnesium EDMS 07/30 15:00 Order name: Creatine Phosphokinase EDMS 07/30 15:00 Order name: Urinalysis EDMS 07/30 15:00 Order name: Basic Metabolic Panel EDMS 07/30 15:00 Order name: Basic Metabolic Panel EDMS 07/30 15:00 Order name: Basic Metabolic Panel EDMS 07/30 15:00 Order name: CBC with Automated Diff EDMS 07/30 15:00 Order name: CBC with Automated Diff EDMS 07/30 10:36 Order name: CT Head Brain wo Cont; Complete Time: 12:08 kb 07/30 10:47 Order name: IV Start; Complete Time: 11:41 kb 07/30 10:48 Order name: CT Soft Tissue Neck W/contr; Complete Time: 12:15 kb 07/30 15:00 Order name: Heart Healthy EDMS 07/30 15:00 Order name: CBC with Automated Diff EDMS 07/30 15:00 Order name: Phosphorus EDMS 07/30 15:00 Order name: Phosphorus EDMS 07/30 16:45 Order name: Glucose, Ancillary Testing; Complete Time: 16:51 EDMS Administered Medications: 12:49 Drug: NS 0.9% 500 ml Route: IV; Rate: bolus; Site: left antecubital; iw 15:15 Drug: Clindamycin 300 mg Route: IVPB; Infused Over: 30 mins; Site: right hand; iw Disposition: 17:05 Co-signature as Attending Physician, Arpan Krishnamurthy MD. rn Disposition Summary: 07/30/22 13:45 Hospitalization Ordered Hospitalization Status: Inpatient Admission kb Provider: Hannah Marquez Location: Telemetry/MedSurg (Inpatient) kb Condition: Stable kb Problem: new kb Symptoms: are unchanged kb Bed/Room Type: [facility] Room Assignment: 202(07/30/22 16:15) eb Diagnosis - Altered mental status, unspecified kb - Hyperkalemia kb - Local infection of the skin and subcutaneous tissue, unspecified kb Forms: - Medication Reconciliation Form kb - SBAR form kb Signatures: Dispatcher [employer] EDPauly Delgadillo, FCO-Ricky TIE BINDER-Cassandra Magallon RN RN iw Nieto, Roman, MD MD rn Botello, Elizabeth eb Corrections: (The following items were deleted from the chart) 16:15 13:45 kb eb
--- NOTE | 2022-07-30 13:45 | ER ---
Nurse's Notes [facility] Name: Emery Taylor Age: 81 yrs Sex: Male : 1940 Arrival Date: 07/30/2022 Time: 10:10 Bed 12 Private MD: Wyatt Mari Diagnosis: Altered mental status, unspecified;Hyperkalemia;Local infection of the skin and subcutaneous tissue, unspecified Presentation: 07/30 10:32 Chief complaint: Patient states: had an appointment with Jacey and was told to come iw to ER , was seeing Dr. Mari for a fall from 10 days ago , he said he couldn't take the stitches out and to come to ER. Coronavirus screen: At this time, the client does not indicate any symptoms associated with coronavirus-19. Ebola Screen: Patient negative for fever greater than or equal to 101.5 degrees Fahrenheit, and additional compatible Ebola Virus Disease symptoms Patient denies exposure to infectious person. Patient denies travel to an Ebola-affected area in the 21 days before illness onset. No symptoms or risks identified at this time. Initial Sepsis Screen: Does the patient meet any 2 criteria? No. Patient's initial sepsis screen is negative. Does the patient have a suspected source of infection? No. Patient's initial sepsis screen is negative. Risk Assessment: Do you want to hurt yourself or someone else? Patient reports no desire to harm self or others. Onset of symptoms was July 30, 2022. 10:32 Method Of Arrival: Wheelchair iw 10:32 Acuity: TARSHA 3 iw Historical: - Allergies: 10:36 Codeine; iw 10:36 [place] (Cucumis Sativus); iw - PMHx: 10:36 COLON CA; diabetes mellitus; Hypercholesterolemia; iw - PSHx: 10:36 colon CA SX; iw Screenin:51 [facility] ED Fall Risk Assessment (Adult) History of falling in the last 3 months, iw including since admission. Abuse screen: Denies threats or abuse. Denies injuries from another. Nutritional screening: No deficits noted. Tuberculosis screening: No symptoms or risk factors identified. Assessment: 11:50 Reassessment: Patient appears in no apparent distress at this time. Patient and/or iw family updated on plan of care and expected duration. Pain level reassessed. Patient is alert, oriented x 3, equal unlabored respirations, skin warm/dry/pink. pt back from CT. Vital Signs: 10:32 BP 137 / 76; Pulse 72; Resp 16; Temp 98.0; Pulse Ox 100% on R/A; Weight 87.09 kg; iw Height 5 ft. 9 in. (175.26 cm); 10:32 Body Mass Index 28.35 (87.09 kg, 175.26 cm) iw ED Course: 10:10 Patient arrived in ED. mr 10:10 Wyatt Mari MD is Private Physician. mr 10:36 Triage completed. iw 10:36 [facility] Barakat [facility]C [facility]. kb 10:36 Arpan Krishnamurthy MD is Attending Physician. kb 10:36 Arm band placed on. iw 11:07 Patient has correct armband on for positive identification. Bed in low position. Call mm9 light in reach. Side rails up X2. Warm blanket given. Pulse ox on. NIBP on. 11:07 Missed attempt(s): 20 gauge in right forearm. antecubital area. mm9 11:35 Initial lab(s) drawn, by ED staff, sent to lab. First set of blood cultures drawn by sc.mm9 11:41 Blood Culture Adult (2) Sent. mm9 11:41 Basic Metabolic Panel Sent. mm9 11:41 CBC with Diff Sent. mm9 11:42 Inserted saline lock: 22 gauge in left antecubital area, using aseptic technique. mm9 11:50 Cassandra Cody, RN is Primary Nurse. iw 11:51 CT Head Brain wo Cont In Process Unspecified. EDMS 11:52 CT Soft Tissue Neck W/contr In Process Unspecified. EDMS 13:42 Hannah Marquez MD is Hospitalizing Provider. kb Administered Medications: 12:49 Drug: NS 0.9% 500 ml Route: IV; Rate: bolus; Site: left antecubital; iw 15:15 Drug: Clindamycin 300 mg Route: IVPB; Infused Over: 30 mins; Site: right hand; iw Outcome: 13:45 Decision to Hospitalize by Provider. kb 16:57 Patient left the ED. iw Signatures: Dispatcher [employer] EDMS Pauly Barakat FNP-C FNP-Sarah Avalos mr Cassandra Cody, RN RN marck Richards Soumya mm9
[2022-07-30] MEDS ORDERED: CLINDAMYCIN 600MG/D5W 50 ML IV ONE (14:04)
[2022-07-30] MEDS ORDERED: ACETAMINOPHEN 500 MG TAB PO PRN (14:49)
[2022-07-30] MEDS ORDERED: ONDANSETRON 4 MG/2 ML VIAL IV PRN (14:49)
[2022-07-30] MEDS: Ringers Lactate 1,000 ML IV SCH (15:00)
[2022-07-30 15:29] LABS: SARS-CoV-2 Antigen Rapid Res Negative (Negative)
--- NOTE | 2022-07-30 15:31 | P.HP ---
Certification for Inpatient Patient admitted to: Inpatient With expected LOS: >2 Midnights Patient will require the following post-hospital care: None Practitioner: I am a practitioner with admitting privileges, knowledge of patient current condition, hospital course, and medical plan of care. Services: Services provided to patient in accordance with Admission requirements found in Title 42 Section 412.3 of the Code of Federal Regulations Patient History Date of Service: 07/30/22 Primary Care Provider: Jacey Reason for admission: AMS, Hyperkalemia History of Present Illness: This is an 81 year old male with PMH of colon cancer, GERD, DM2 and HLD. Patient was evaluated with the at the bedside. Both parties are poor historians but patient stated that he had an appointment with his PCP, Dr. Mari, and he was told to come to the emergency room to have the rest of his stiches removed. Patient sustained a fall 10 days ago but said it was one week ago. Patients fall resulted with a mandible fracture with right head laceration. Patient and denied any episodes of chest pain, nausea, vomiting, and change in vision, slurred speech, headaches, and loss of sensation, diarrhea, and constipation. In the ER, patient was found to be in acute renal failure, elevated potassium and elevated lactic acid levels. Patients head CT was negative for any acute findings. Patient will be admitted under the care of Dr. Marquez. Allergies codeine [Codeine] Allergy (Verified 01/27/12 18:00) Nausea/Vomiting [place] Allergy (Uncoded 10/06/13 23:32) Nausea/Vomiting Home Medications: Aspirin 81 mg PO DAILY 10/07/13 Cyclosporine [Restasis] 1 drop OD DAILY PRN 10/07/13 Fexofenadine HCl [Kaity Allergy] 180 mg PO DAILY 10/07/13 Multivitamin [Multivitamins] 1 mg PO DAILY 10/07/13 Naproxen Sodium [Aleve] 220 mg PO Q6HR PRN 10/07/13 Omeprazole [Prilosec] 40 mg PO DAILY 10/07/13 bisacodyL [Dulcolax*] 5 mg PO DAILY PRN 10/07/13 Metoprolol Succinate [Toprol Xl*] 25 mg PO DAILY #30 tab 10/08/13 Simvastatin [Zocor*] 40 mg PO BEDTIME #30 tablet 10/08/13 - Past Medical/Surgical History Diabetic: No -: Colon CA, 2009, Oncology-Dr. Reeves -: GERD, GI-Dr. Vasquez -: Colon Resection 2009 Psychosocial/ Personal History: of 38 years, no children. He is a valve specialist - Social History Smoking Status: Never smoker Alcohol use: Yes CD- Drugs: No Caffeine use: Yes Review of Systems 10-point ROS is otherwise unremarkable General: Weakness Integumentary: Bruising Neurological: Weakness, Change in Speech, Confusion Physical Examination - Vital Signs Temperature: 98 F Blood Pressure: 137/76 Pulse: 72 Respirations: 16 Pulse Ox (%): 100 - Physical Exam General: Alert, Oriented x3 (Right head laceration, mandible fracture), Demented HEENT: PERRLA, Other Neck: Supple Respiratory: Clear to auscultation bilaterally Cardiovascular: Normal pulses, Edema Capillary refill: <2 Seconds Gastrointestinal: Normal bowel sounds Musculoskeletal: No clubbing (right head laceration) Neurological: Normal speech, Normal strength at 5/5 x4 extr, Normal tone Lymphatics: No axilla or inguinal lymphadenopathy - Studies Laboratory Data (last 24 hrs) 07/30/22 11:35: Sodium 139, Potassium 5.4 H, BUN 23 H, Creatinine 1.62 H, Gluco se 96 07/30/22 11:35: WBC 6.80, Hgb 12.0 L, Hct 36.1 L, Plt Count 155 Assessment and Plan - Plan Assessment Lactic acidosis associated with acute renal failure AMS Hyperkalemia associate with acute renal failure Acute renal failure Mandible fracture with right head laceration s/p fall DM2 HLD Lactic acidosis associated with acute renal failure -Lactic 5.4, Creat 1.6, BUN 23 -IV fluids- LR @ 100ml/hr -Lactic Q2 AMS with recurrent falls -Head CT No acute intracranial finding. Atrophy, chronic ischemic change and old right cerebellum CVA changes match the short interval July 22 study. -Continue neuro checks -CPK ordered rule out rhabdo -Urinalysis pending, BCX pending Hyperkalemia associate with acute renal failure -Potassium 5.4 -Kayexalate x once -Continue IV fluids, LR @ 100ml/hr -Recheck BMP 2 hours later Acute renal failure -Creatinine 1.6, BUN 23 -Continue LR @ 100 ml/hr -Avoid nephrotoxic agents Mandible fracture with right head laceration s/p fall - CT - Soft Tissue Neck W/Contr The mandible is fractured. There is a fracture in the midline mandible with very minimal displacement or offset of the fracture fragments. Additionally, the left mandibular condyle is fractured with the articular head displaced anteriorly relative to the ramus and the articular head is dislocated from the glenoid fossa. There is soft tissue swelling adjacent to the fracture sites. There is no abscess identified in the soft tissues. DM2- continue blood glucose checks ACHS with s/s insulin coverage HLD- continue statin, ASA PPX- Heparin subq, PPI Code status- Full code Discharge Plan: Home Plan to discharge in: 48 Hours - Advance Directives Does patient have a Living Will: Yes Does patient have a Durable POA for Healthcare: Yes - Code Status/Comfort Care Code Status Assessed: Yes (Full code) Critical Care: No Time Spent Managing Pts Care (In Minutes): 55
[2022-07-30] MEDS ORDERED: SOD POLYSTYREN SUL 15 GM/60 ML UCUP PO ONE (16:00)
[2022-07-30] MEDS: INSULIN -REGULAR HUMAN 50 UNIT/0.5 ML ML SQ SCH ×2 (16:30→21:00)
[2022-07-30] MEDS ORDERED: SOD POLYSTYREN SUL 15 GM/60 ML UCUP ONE (16:37)
[2022-07-30] MEDS: HEPARIN 5000 UNIT/ML 1 ML VIAL SQ SCH (17:00)
[2022-07-30] MEDS: CLINDAMYCIN 600MG/D5W 25 ML IV SCH (18:00)
[2022-07-30 18:50] VITALS: BMI 28.3
[2022-07-30] MEDS ORDERED: D10W 250 ML IV PRN (20:27)
[2022-07-30] MEDS ORDERED: ATORVASTATIN 40 MG TAB PO SCH (21:00)
[2022-07-31] MEDS: CLINDAMYCIN 600MG/D5W 25 ML IV SCH ×2 (00:17→05:14)
[2022-07-31 01:42] LABS: Specific Gravity 1.019 (1.005-1.030); Urine Bilirubin NEGATIVE (Negative); Urine Blood Negative (Negative); Urine Clarity Clear (Clear); Urine Color Light-Yellow (Yellow); Urine Glucose NEGATIVE (Negative); Urine Protein NEGATIVE (Negative); Urine Urobilinogen Normal (Normal); Urine pH 6.5 (5.0-7.0)
[2022-07-31 01:51] VITALS: O2SAT 95
[2022-07-31] MEDS: HEPARIN 5000 UNIT/ML 1 ML VIAL SQ SCH ×2 (01:59→08:47)
[2022-07-31] MEDS: Ringers Lactate 1,000 ML IV SCH (02:00)
[2022-07-31 05:16] LABS: Absolute Lymphocytes (CBC) 1.5 K/uL (0.7-4.9); Hematocrit 31.7 % (39.6-49.0); Lymphocytes % 30.6 % (15.3-44.8); MCV 84.2 fL (80-100); RBC Red Blood Cell Count 3.77 M/uL (4.33-5.43)
[2022-07-31 05:34] LABS: Magnesium 1.9 mg/dL (1.6-2.4); Potassium 4.2 mmol/L (3.5-5.1)
[2022-07-31] MEDS: INSULIN -REGULAR HUMAN 50 UNIT/0.5 ML ML SQ SCH (07:30)
[2022-07-31 08:23] VITALS: BP 147/77; TEMP 97.3
[2022-07-31] MEDS ORDERED: ASPIRIN 81 MG CHEWABLE TABLET PO SCH (09:00)
--- NOTE | 2022-07-31 09:02 | P.DS ---
Admission Date: 07/30/22 Discharge Date: 07/31/22 Primary Care Provider: Jacey Discharge Condition: FAIR Reason for Admission: AMS, Hyperkalemia Brief History of Present Illness: Patient is 81 years of age admitted with a fall had a mandibular fracture and is currently doing better Hospital Course: Admitted for observation did well at the time of discharge he was eating and drinking at oriented responsive cooperative vital signs all stable he is coherent to make his own decisions CT scan of the head was negative Also had a CT of the head and neck patient has mandibular sutures The mandible is fractured. There is a fracture in the midline mandible with very minimal displacement or offset of the fracture fragments. Additionally, the left mandibular condyle is fractured with the articular head displaced anteriorly relative to the ramus and the articular head is dislocated from the glenoid fossa. There is soft tissue swelling adjacent to the fracture sites. There is no abscess identified in the soft tissues no evidence of infection/patient discharged without antibiotics to follow-up with primary care Vital Signs/Physical Exam: Temp Pulse Resp BP Pulse Ox 97.3 F 69 16 147/77 H 97 07/31/22 08:00 07/31/22 08:00 07/31/22 08:00 07/31/22 08:00 07/31/22 08:00 Laboratory Data at Discharge: WBC 5.10 K/uL (4.3-10.9) 07/31/22 04:29 Hgb 10.7 g/dL (13.6-17.9) L D 07/31/22 04:29 Hct 31.7 % (39.6-49.0) L 07/31/22 04:29 Plt Count 139 K/uL (152-406) L 07/31/22 04:29 Sodium 142 mmol/L (136-145) 07/31/22 04:29 Potassium 4.2 mmol/L (3.5-5.1) D 07/31/22 04:29 BUN 19 mg/dL (7-18) H 07/31/22 04:29 Creatinine 1.22 mg/dL (0.70-1.30) 07/31/22 04:29 Glucose 81 mg/dL (74-106) 07/31/22 04:29 Phosphorus 3.0 mg/dL (2.5-4.9) 07/31/22 04:29 Magnesium Cancelled 07/31/22 05:00 Home Medications: Aspirin 81 mg PO DAILY 10/07/13 Cyclosporine [Restasis] 1 drop OD DAILY PRN 10/07/13 Fexofenadine HCl [Kaity Allergy] 180 mg PO DAILY 10/07/13 Multivitamin [Multivitamins] 1 mg PO DAILY 10/07/13 Naproxen Sodium [Aleve] 220 mg PO Q6HR PRN 10/07/13 Omeprazole [Prilosec] 40 mg PO DAILY 10/07/13 bisacodyL [Dulcolax*] 5 mg PO DAILY PRN 10/07/13 Metoprolol Succinate [Toprol Xl*] 25 mg PO DAILY #30 tab 10/08/13 Simvastatin [Zocor*] 40 mg PO BEDTIME #30 tablet 10/08/13 Diet: Regular Activity: Ad one[place] Followup: Wyatt Mari MD [Primary Care Provider] -
== END 2022-07-31 09:30 | disposition home or self-care (01) ==
LOC: ER 10:06 → ERHOLD 14:49 → INTOOBSV 14:49 → 2ND 16:30
PROVIDERS: ADMIT Hospitalist; ATTEND Internal Medicine Sleep Medicine
DX: R41.82 Altered mental status, unspecified (principal); E87.5 Hyperkalemia; E87.21 Acute metabolic acidosis; N17.9 Acute kidney failure, unspecified; E11.9 Type 2 diabetes mellitus without complications; E78.5 Hyperlipidemia, unspecified; L08.9 Local infection of the skin and subcutaneous tissue, unspecified; S02.611D Fracture of condylar process of right mandible, subsequent encounter for fracture with routine healing; W19.XXXD Unspecified fall, subsequent encounter; Z88.6 Allergy status to analgesic agent; Z91.81 History of falling; Z85.038 Personal history of other malignant neoplasm of large intestine; Z48.02 Encounter for removal of sutures; Z20.822 Contact with and (suspected) exposure to COVID-19
CPT/HCPCS: 87040 ×2; 85025 ×2; 80048 ×2; 36415 ×2; 83735; 82550; 84100; 82565; 82947 ×4; 83605 ×2; 81003; 70450; 70491; 96374; 99284; 87811; Q9967; J1644 ×3; J7120 ×2; J7040

== ENCOUNTER 2022-08-24 06:22 | Day surgery (SDC) | payer OTHER ==
[2022-08-20 14:12] LABS: Absolute Lymphocytes (CBC) 1.3 K/uL (0.7-4.9); Hematocrit 33.7 % (39.6-49.0); Lymphocytes % 22.3 % (15.3-44.8); MCV 85.6 fL (80-100); MPV 8.4 fL (7.6-11.3); RBC Red Blood Cell Count 3.94 M/uL (4.33-5.43)
[2022-08-24] MEDS ORDERED: NA CHLORIDE 0.9% 1,000 ML ONE ×2 (06:53→10:31)
[2022-08-24] MEDS ORDERED: CLINDAMYCIN 900MG/D5W 900 MG/50 ML IVPB IV SCH (07:00)
[2022-08-24] MEDS ORDERED: EPINEPHRINE/PF 1 MG/ML AMP ONE (07:12)
[2022-08-24] MEDS ORDERED: LIDOCAINE 1% 20 ML MDV ONE (07:12)
[2022-08-24] MEDS ORDERED: CHLORHEXIDINE 0.12% 473ML BOT MM ONE (07:12)
[2022-08-24] MEDS ORDERED: BUPIVACAINE 0.5% PF 10 ML VIAL ONE (07:12)
[2022-08-24] MEDS ORDERED: propofoL 200 MG/20 ML VIAL IV ONE (07:16)
[2022-08-24] MEDS ORDERED: LIDOCAINE 2% MPF 5 ML VIAL ONE (07:16)
[2022-08-24] MEDS ORDERED: ROCURONIUM 50 MG/5 ML VIAL IV ONE (07:16)
[2022-08-24] MEDS ORDERED: dexAMETHasone 10 MG/ML VIAL ONE (07:16)
[2022-08-24] MEDS ORDERED: FENTANYL CITR 100 MCG/2 ML ONE (07:16)
[2022-08-24] MEDS ORDERED: ONDANSETRON 4 MG/2 ML VIAL ONE (07:17)
[2022-08-24] MEDS ORDERED: HYDROCORTISONE 1 % OINT 30GM TOP ONE (07:25)
[2022-08-24] MEDS ORDERED: OXYMETAZOLINE HCL 0.05% 15ML NAS ONE (07:33)
[2022-08-24] MEDS ORDERED: NS 0.9% VIAL 10 ML ONE (07:58)
[2022-08-24] MEDS ORDERED: SUGAMMADEX SODIUM 200 MG/2 ML VIAL IV ONE (09:22)
[2022-08-24] MEDS ORDERED: CLINDAMYCIN 900MG/D5W 900 MG/50 ML IVPB IV ONE (10:30)
[2022-08-24 13:28] VITALS: TEMP 97
[2022-08-24 13:32] VITALS: O2SAT 96
[2022-08-24 13:41] VITALS: BP 150/81
--- NOTE | 2022-08-24 20:15 | OP ---
Date of Procedure: 08/24/2022 Surgeon: Chirag Garber DDS, MD Screen Writer: Staff. Preoperative Diagnosis: Fracture of the mandibular symphysis. Postoperative Diagnosis: Fracture of the mandibular symphysis. Procedures: Open reduction with internal fixation of the mandibular symphysis fracture and extractio n of teeth #24 and #25. Anesthesia: General endotracheal. Estimated Blood Loss: Less than 100 cc. Fluids: 1 L LR. Drains: None. Implants: 1.5 mm Synthes 6 hole plate with 6 bicortical screws. A 4 hole Synthes tension band plate with 4 monocortical screws. Complications: None. Findings: The patient had a mandibular symphysis fracture, which was minimally displaced as expected . There was some fibrous tissue in the line of the fracture that was easily mobilized. Teeth #24 an d #25 were mobile and supported only by soft tissues. The patient was also noted to have radiographi c findings of a left mandibular subcondylar fracture. He had no limitation in opening. His occlusio n did tend to deviate to the left. Procedure In Detail: The patient was taken to the operating room and placed on the table in the supi ne position. General anesthesia was begun and then the patient was nasotracheally intubated. The pa tient was prepped and draped in a normal sterile fashion. A throat pack was placed and the oral cavi ty was irrigated with chlorhexidine solution. A mixture of 1% lidocaine with 1:100,000 epinephrine w as injected into the mandibular buccal vestibule from the premolar area to premolar area. A #15 blad e was used to make an incision from the left first premolar area across the mid talus region to the r ight premolar area. The orientation of the incision was made in a way to avoid the mental nerve and its branches. Full-thickness mucoperiosteal flaps were reflected inferiorly to the inferior border o f the mandible and superiorly to the apices of the anterior teeth. The fracture was exposed and then a periosteal elevator was used to free some fibrous tissues from the anterior part of the fracture. At this time, 4 intermaxillary fixation screws were placed, 2 at the maxillary buttresses just poste rior to the apices of the canine teeth and 2 below the apices of the anterior teeth about 1.5 cm on e ither side of the fracture line. These were held in occlusion. The patient was noted to have an end -on-end occlusion anteriorly and a slight posterior crossbite on the left side of the mandible. 24-g auge wire loops were used to hold the teeth in occlusion using the fixation screws. Once normal occl usion was established, 2 harbor pilot holes were drilled on either side of the fracture line and a Synthes b one clamp was used to reduce the fracture along with some leverage from the periosteal elevator. Onc e the fracture was noted to be well reduced, a 6 hole curved plate was bent to fit passively over the fracture. The plate was a 1.5 mm strength plate. The plate was first secured on the left side of t he fracture line using a 2.4 x 12 mm screw. The plate was secured on the opposite side of the fractu re line with another 2.4 x 12 mm screw. The remaining holes were placed in a bicortical fashion usin g 2 more 2.4 x 12 mm screws and two 2.4 x 10 mm screws. The fracture was noted to remain well reduce d and the bone clamp was removed. A 1.0 mm strength tension band plate with 4 holes was then bent to fit over the fracture line about 2 cm superior to the inferior border plate. The plate was secured across the fracture line using four 2.0 x 6 mm screws. The fracture was noted to remain well reduced . At this time, the 24-gauge wires were cut and the temporary intermaxillary fixation was released. The patient had free motion of the mandible and the occlusion was reproducible. The gingiva around teeth #24 and 25 was bluntly dissected using a periosteal elevator. Both teeth were extracted using the Hermes dental forceps. The occlusion was checked again and noted to be reproducible. The wound was irrigated with copious amounts of sterile saline. 4-0 Vicryl suture was used to reapproximate the m uscular layer in the mentalis area. The overlying mucosal margins were reapproximated using a 4-0 ch romic gut suture in a running fashion. Good primary closure was achieved. The oral cavity was irrig ated with saline solution. The throat pack was removed and the oropharynx was suctioned. General an esthesia was ended and the patient was extubated in the operating room. The patient was taken to the recovery room in stable and satisfactory condition. Sponge and needle counts were correct and there were no complications. RCF/MODL Voice ID: [id number] Report ID: [id number]
== END 2022-08-24 13:17 | disposition home or self-care (01) ==
LOC: OR 06:22
PROVIDERS: ATTEND Oral & Maxillofacial Surgery
PROC: 0CDXXZ1 Extraction of Lower Tooth, Multiple, External Approach (ICD-10-PCS; 2022-08-24)
PROC: 0NSV04Z Reposition Left Mandible with Internal Fixation Device, Open Approach (ICD-10-PCS; principal; 2022-08-24 07:30)
DX: S02.66XA Fracture of symphysis of mandible, initial encounter for closed fracture (principal); E11.9 Type 2 diabetes mellitus without complications; Z88.6 Allergy status to analgesic agent; M89.9 Disorder of bone, unspecified
CPT/HCPCS: 21462; 41899; 85025; 36415; 82947 ×2; J2704; J2001 ×2; J0171; J3010; J1100; A4216; J7030 ×2; J2405

== ENCOUNTER 2023-02-09 18:21 | Inpatient (IN) | payer OTHER ==
--- OUTSIDE RECORDS SUMMARY | 2023-02-09 18:23 | XMS REPORT | Continuity of Care Document ---
:1940 Author Organization [facility] t Address [address] [place] [id number] Care Team Providers Name Role Phone Unavailable Unavailable Unavailable Payers Payer Name Policy Type Policy Number Effective Date Expiration Date S izabel [employer] PPO [id number] 2021 00:00:00 Problems This patient has no known problems. Allergies, Adverse Reactions, Alerts This patient has no known allergies or adverse reactions. Medications This patient has no known medications. Procedures This patient has no known procedures. Encounters Start End Encounter Admission Attending Care Care Encounter Source Date/Time Date/Time Type Type Clinicians Facility Department ID 2022-08-[address] [facility] [id number] [place] 10:43:54 [id number] Health Results This patient has no known results.
--- NOTE | 2023-02-09 20:02 | RAD REPORT ---
EXAM DESCRIPTION: RAD - Chest Single View - 02/09/2023 7:39 pm CLINICAL HISTORY: dizziness COMPARISON: Chest Pa And Lat (2 Views) dated 07/02/2016; CHEST SINGLE VIEW dated 10/06/2013; CHEST SING LE VIEW dated 01/28/2009; CHEST PA AND LAT 2 VIEW dated 12/13/2008 FINDINGS: Lines: None. Lungs: No evidence of edema or pneumonia. Pleural: No significant pleural effusions or pneumothorax. Cardiac: The heart size is within normal limits. Mediastinum: Within normal limits. Bones: No acute fractures. Other: None IMPRESSION: No acute cardiopulmonary disease.
[2023-02-09 20:04] LABS: Absolute Lymphocytes (CBC) 1.4 K/uL (0.7-4.9); Hematocrit 35.5 % (39.6-49.0); Lymphocytes % 13.3 % (15.3-44.8); MCV 82.1 fL (80-100); MPV 8.1 fL (7.6-11.3); RBC Red Blood Cell Count 4.33 M/uL (4.33-5.43)
[2023-02-09] MEDS ORDERED: FOLIC ACID 5 MG/ML VIAL ONE (20:08)
[2023-02-09] MEDS ORDERED: NA CHLORIDE 0.9% 1,000 ML ONE (20:08)
--- NOTE | 2023-02-09 20:24 | RAD REPORT ---
EXAM DESCRIPTION: CT - Ct Stroke Brain Wo Cont - 02/09/2023 8:17 pm CLINICAL HISTORY: STROKE ALERT COMPARISON: Head Brain Wo Cont dated 07/30/2022; Head Brain Wo Cont dated 07/22/2022; Brain W/Wo Con t dated 10/01/2022 TECHNIQUE: All CT scans are performed using dose optimization technique as appropriate and may inclu de automated exposure control or mA/KV adjustment according to patient size. FINDINGS: No intracranial hemorrhage, hydrocephalus or extra-axial fluid collection.No areas of brai n edema or evidence of midline shift. Widespread confluent white matter hypoattenuation. 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 The paranasal sinuses and mastoids are clear. The calvarium is intact. IMPRESSION: No acute intracranial abnormality. Remote infarct advanced chronic small vessel ischemi c changes.
[2023-02-09 20:50] LABS: Potassium 5.2 mEq/L (3.5-5.1); Troponin High Sensitivity 8.4 pg/mL (<58.9)
--- NOTE | 2023-02-09 20:54 | RAD REPORT ---
EXAM DESCRIPTION: MRI - Brain Wo Cont - 02/09/2023 8:39 pm CLINICAL HISTORY: DIZZINESS COMPARISON: Brain W/Wo Cont dated 10/01/2022 TECHNIQUE: Sagittal T1-weighted images were obtained along with PD/heavily T2-weighted and T2-FLAIR images. Axial DWI and ADC mapping sequences were also obtained along with coronal heavily T2-weighted images were obtained. FINDINGS: No intracranial hemorrhage, mass or acute infarction. There is no edema or shift of midlin e structures. No extra-axial fluid collections. Signal voids are seen as a normal finding in the baylee r intracranial vessels. Advanced chronic small vessel ischemic changes. Remote bilateral frontal lobe , or right parietal, and right greater than left cerebellar hemisphere infarcts. Basal ganglia minera lization. Small focus of susceptibility at the right thalamus likely secondary to a remote microhemor rhagic infarct. Mastoid air cells and paranasal sinuses are clear. IMPRESSION: No acute intracranial abnormality. Specifically, no evidence of acute infarct . Sequela of remote infarcts and advanced chronic small vessel ischemic changes without significant change .
--- NOTE | 2023-02-09 21:10 | EDPHYS ---
Physician Documentation [facility] Name: Emery Taylor Age: 82 yrs Sex: Male : 1940 Arrival Date: 02/09/2023 Time: 18:21 Bed 5 Private MD: Wyatt Mari ED Physician Farhan Blanchard HPI: 02/09 20:40 This 82 yrs old Male presents to ER via Ambulatory with complaints of ricky Dizziness. 20:40 The patient presents with dizziness, sense of spinning. Onset: The symptoms/episode ricky began/occurred at 16:00. Context: occurred at home. Modifying factors: The symptoms are alleviated by closing eyes, holding head still, the symptoms are aggravated by movement of head, changing position. Associated signs and symptoms: Pertinent positives: nausea. Severity of symptoms: At their worst the symptoms were mild in the emergency department the symptoms are unchanged. Patient's baseline: Neuro: alert and fully oriented. The patient has experienced similar episodes in the past, a few times. Historical: - Allergies: 18:29 Codeine; ll1 18:29 [place] (Cucumis Sativus); ll1 - PMHx: 18:29 COLON CA; diabetes mellitus; Hypercholesterolemia; ll1 - PSHx: 18:29 colon CA SX; ll1 - Immunization history:: Client reports receiving the 2nd dose of the Covid vaccine. - Social history:: Smoking status: Patient reports use of chewing tobacco. Patient denies any tobacco usage or history of. ROS: 20:41 Constitutional: Negative for fever, chills, and weight loss, Eyes: Negative for injury, ricky pain, redness, and discharge, ENT: Negative for injury, pain, and discharge, Neck: Negative for injury, pain, and swelling, Cardiovascular: Negative for chest pain, palpitations, and edema, Respiratory: Negative for shortness of breath, cough, wheezing, and pleuritic chest pain, Back: Negative for injury and pain, : Negative for injury, bleeding, discharge, and swelling, MS/Extremity: Negative for injury and deformity, Skin: Negative for injury, rash, and discoloration, Psych: Negative for depression, anxiety, suicide ideation, homicidal ideation, and hallucinations, Allergy/Immunology: Negative for hives, rash, and allergies, Endocrine: Negative for neck swelling, polydipsia, polyuria, polyphagia, and marked weight changes. 20:41 Abdomen/GI: Positive for nausea and vomiting. 20:41 Neuro: Positive for dizziness. Exam: 20:41 Constitutional: This is a well developed, well nourished patient who is awake, alert, ricky and in no acute distress. Head/Face: Normocephalic, atraumatic. Eyes: Pupils equal round and reactive to light, extra-ocular motions intact. Lids and lashes normal. Conjunctiva and sclera are non-icteric and not injected. Cornea within normal limits. Periorbital areas with no swelling, redness, or edema. ENT: Nares patent. No nasal discharge, no septal abnormalities noted. Tympanic membranes are normal and external auditory canals are clear. Oropharynx with no redness, swelling, or masses, exudates, or evidence of obstruction, uvula midline. Mucous membranes moist. Neck: Trachea midline, no thyromegaly or masses palpated, and no cervical lymphadenopathy. Supple, full range of motion without nuchal rigidity, or vertebral point tenderness. No Meningismus. Chest/axilla: Normal chest wall appearance and motion. Nontender with no deformity. No lesions are appreciated. Cardiovascular: Regular rate and rhythm with a normal S1 and S2. No gallops, murmurs, or rubs. Normal PMI, no JVD. No pulse deficits. Respiratory: Lungs have equal breath sounds bilaterally, clear to auscultation and percussion. No rales, rhonchi or wheezes noted. No increased work of breathing, no retractions or nasal flaring. Abdomen/GI: Soft, non-tender, with normal bowel sounds. No distension or tympany. No guarding or rebound. No evidence of tenderness throughout. Back: No spinal tenderness. No costovertebral tenderness. Full range of motion. Male : Normal genitalia with no discharge or lesions. Skin: Warm, dry with normal turgor. Normal color with no rashes, no lesions, and no evidence of cellulitis. MS/ Extremity: Pulses equal, no cyanosis. Neurovascular intact. Full, normal range of motion. Neuro: Awake and alert, GCS 15, oriented to person, place, time, and situation. Cranial nerves II-XII grossly intact. Motor strength 5/5 in all extremities. Sensory grossly intact. Cerebellar exam normal. Normal gait. Psych: Awake, alert, with orientation to person, place and time. Behavior, mood, and affect are within normal limits. 20:41 ECG was reviewed by the Attending Physician. Vital Signs: 18:30 BP 165 / 90; Pulse 54; Resp 17; Temp 97.2; Pulse Ox 98% ; Weight 88.9 kg; Height 5 ft. ll1 9 in. ; Pain 0/10; 21:43 BP 146 / 80; Pulse 75; Resp 16; Pulse Ox 97% on R/A; jb4 18:30 Body Mass Index 28.94 (88.90 kg, 175.26 cm) ll1 18:30 Pain Scale: Adult ll1 MDM: 19:48 Patient medically screened. [facility] 20:44 Differential diagnosis: Nonspecific abd pain, gastritis, cholecystitis, viral ricky gastroenteritis, gastroenteritis. Differential diagnosis: cardiac arrhythmia, CVA, generalized weakness, idiopathic dizziness, near-syncope, TIA, vertigo. Data reviewed: vital signs, nurses notes, lab test result(s), EKG, radiologic studies, CT scan, MRI, plain films. Consideration of Admission/Observation Escalation of care including admission/observation considered. I considered the following discharge prescriptions or medication management in the emergency department Medications were administered in the Emergency Department. See MAR. Test considered but Not performed: Ultrasound no abd usg. Historians other than the Patient: Spouse/Significant Other: . Care significantly affected by the following chronic conditions: Diabetes, Cancer, high cholesterol. Counseling: I had a detailed discussion with the patient and/or guardian regarding: the historical points, exam findings, and any diagnostic results supporting the discharge/admit diagnosis, the presence of at least one elevated blood pressure reading (>120/80) during this emergency department visit, lab results, radiology results. 02/09 19:24 Order name: Basic Metabolic Panel; Complete Time: 21:05 [facility] 02/09 19:24 Order name: CBC with Diff; Complete Time: 20:45 [facility] 02/09 19:24 Order name: Troponin HS; Complete Time: 21:05 [facility] 02/09 19:49 Order name: Urinalysis w/ reflexes ricky 02/09 19:24 Order name: XRAY Chest (1 view); Complete Time: 20:45 [facility] 02/09 19:25 Order name: CT Head Angio; Complete Time: 21:42 [facility] 02/09 19:25 Order name: CT Neck Angio; Complete Time: 21:42 [facility] 02/09 19:57 Order name: CT Stroke Brain w/o Contrast; Complete Time: 20:45 [facility] 02/09 20:16 Order name: Brain Wo Cont; Complete Time: 21:05 [facility] 02/09 19:24 Order name: EKG; Complete Time: 19:25 [facility] 02/09 21:19 Order name: CONS Physician Consult [facility] 02/09 21:19 Order name: CONS Physician Consult [facility] 02/09 19:24 Order name: Cardiac monitoring; Complete Time: 19:34 [facility] 02/09 19:24 Order name: EKG - Nurse/Tech; Complete Time: 19:34 [facility] 02/09 19:24 Order name: IV Saline Lock; Complete Time: 19:55 [facility] 02/09 19:24 Order name: Labs collected and sent; Complete Time: 19:55 [facility] 02/09 19:24 Order name: O2 Per Protocol; Complete Time: 19:34 [facility] 02/09 19:24 Order name: O2 Sat Monitoring; Complete Time: 19:34 jm EC:41 Rate is 61 beats/min. Rhythm is regular. QRS [place] is Normal. VT interval is normal. QRS ricky interval is normal. QT interval is normal. No Q waves. T waves are Normal. No ST changes noted. Clinical impression: NSR w/ Non-specific ST/T Changes and No evidence of ischemia. Interpreted by me. Reviewed by me. Administered Medications: 20:02 Drug: NS 0.9% IV 1000 ml Route: IV; Rate: 1 bolus; Site: left forearm; jb4 20:02 Drug: foLIC Acid IVPB 1 mg Route: IVPB; Site: left forearm; jb4 21:36 Drug: Famotidine IVP 20 mg Route: IVP; Site: left forearm; jb4 21:37 Drug: Meclizine PO 25 mg Route: PO; jb4 21:37 Drug: Aspirin PO Chewable Tablet 81 mg Route: PO; jb4 21:37 Drug: Clopidogrel PO 75 mg Route: PO; jb4 Disposition Summary: 02/09/23 21:09 Hospitalization Ordered Hospitalization Status: Observation ricky Provider: Wyatt Mari cha Location: Telemetry/MedSurg (observation) ricky Condition: Fair ricky Problem: new ricky Symptoms: have improved ricky Bed/Room Type: Standard ricky Room Assignment: 214(02/09/23 21:37) cg Diagnosis - Dizziness and giddiness ricky - Essential (primary) hypertension ricky - Hyperkalemia ricky - Nausea ricky - Type 2 diabetes mellitus with hyperglycemia ricky Forms: - Medication Reconciliation Form ricky - SBAR form ricky Signatures: Dispatcher [employer] EDMS Farhan Blanchard MD MD cha Mickail, Joel, PA PA jmm Garcia, Cindy RN RN Jeb Heredia RN RN jb4 Kathryn Montelongo RN RN ll1 Corrections: (The following items were deleted from the chart) 20:13 19:25 Head Brain Wo Cont+CT.RAD.BRZ ordered. EDMS EDMS 20:16 19:50 MR STROKE PROTOCOL+MRI.RAD.BRZ ordered. EDMS EDMS 21:37 21:09 ricky cg
--- NOTE | 2023-02-09 21:10 | ER ---
Nurse's Notes [facility] Name: Emery Taylor Age: 82 yrs Sex: Male : 1940 Arrival Date: 02/09/2023 Time: 18:21 Bed 5 Private MD: Wyatt Mari Diagnosis: Dizziness and giddiness;Essential (primary) hypertension;Hyperkalemia;Nausea;Type 2 diabetes mellitus with hyperglycemia Presentation: 02/09 18:30 Chief complaint: Patient states: Dizziness came on suddenly this afternoon around 1600. ll1 Had 1 episode of N/V. Coronavirus screen: Vaccine status: Patient reports receiving the 2nd dose of the covid vaccine. Client denies travel out of the [place] in the last 14 days. cough unrelated to allergies, nausea, vomiting. Client presents with at least one sign or symptom that may indicate coronavirus-19. Standard/surgical mask placed on the client. Ebola Screen: Patient denies travel to an Ebola-affected area in the 21 days before illness onset. Initial Sepsis Screen: Does the patient meet any 2 criteria? No. Patient's initial sepsis screen is negative. Does the patient have a suspected source of infection? No. Patient's initial sepsis screen is negative. Risk Assessment: Do you want to hurt yourself or someone else? Patient reports no desire to harm self or others. Onset of symptoms was February 09, 2023. 18:30 Method Of Arrival: Ambulatory 1 18:30 Acuity: TARSHA 3 ll1 Triage Assessment: 18:31 General: Appears uncomfortable, Behavior is calm, cooperative, appropriate for age. ll1 Pain: Denies pain. Neuro: Reports dizziness. GI: Reports nausea, vomiting. Historical: - Allergies: 18:29 Codeine; ll1 18:29 [place] (Cucumis Sativus); ll1 - PMHx: 18:29 COLON CA; diabetes mellitus; Hypercholesterolemia; ll1 - PSHx: 18:29 colon CA SX; ll1 - Immunization history:: Client reports receiving the 2nd dose of the Covid vaccine. - Social history:: Smoking status: Patient reports use of chewing tobacco. Patient denies any tobacco usage or history of. Screenin:43 [facility] ED Fall Risk Assessment (Adult) History of falling in the last 3 months, jb4 including since admission No falls in past 3 months (0 pts) Confusion or Disorientation No (0 pts) Score/Fall Risk Level 0 - 2 = Low Risk Oriented to surroundings, Maintained a safe environment. Abuse screen: Denies threats or abuse. Nutritional screening: No deficits noted. Tuberculosis screening: No symptoms or risk factors identified. Assessment: 19:30 General: Appears in no apparent distress. comfortable, Behavior is calm, cooperative, jb4 appropriate for age. Pain: Denies pain. Neuro: Level of Consciousness is awake, alert, obeys commands, Oriented to person, place, time, situation, Moves all extremities. Full function Gait is unsteady, Speech is normal, Facial symmetry appears normal, Pupils are PERRLA. Cardiovascular: Patient's skin is warm and dry. Respiratory: Airway is patent Respiratory effort is even, unlabored, Respiratory pattern is regular, symmetrical. GI: No signs and/or symptoms were reported involving the gastrointestinal system. : No signs and/or symptoms were reported regarding the genitourinary system. EENT: No signs and/or symptoms were reported regarding the EENT system. Derm: Skin is intact, Skin is pink, warm \T\ dry. Musculoskeletal: Circulation, motion, and sensation intact. Range of motion: intact in all extremities. 20:09 Reassessment: Pt to MRI and CT. jb4 21:01 Reassessment: Pt to CT. jb4 21:43 Reassessment: Patient appears in no apparent distress at this time. Patient and/or jb4 family updated on plan of care and expected duration. Pain level reassessed. Patient is alert, oriented x 3, equal unlabored respirations, skin warm/dry/pink. it telecom technician at the bedside helping pt get cleaned, and changed. Vital Signs: 18:30 BP 165 / 90; Pulse 54; Resp 17; Temp 97.2; Pulse Ox 98% ; Weight 88.9 kg; Height 5 ft. ll1 9 in. ; Pain 0/10; 21:43 BP 146 / 80; Pulse 75; Resp 16; Pulse Ox 97% on R/A; jb4 18:30 Body Mass Index 28.94 (88.90 kg, 175.26 cm) ll1 18:30 Pain Scale: Adult ll1 ED Course: 18:22 Patient arrived in ED. am2 18:22 Wyatt Mari MD is Private Physician. am2 18:38 Triage completed. ll1 18:38 Arm band placed on. ll1 19:35 Jeb Heredia, RN is Primary Nurse. jb4 19:41 XRAY Chest (1 view) In Process Unspecified. EDMS 19:48 Farhan Blanchard MD is Attending Physician. ricky 19:56 Inserted saline lock: 22 gauge in left forearm, using aseptic technique. Blood mc5 collected. 20:19 CT Stroke Brain w/o Contrast In Process Unspecified. EDMS 20:40 Brain Wo Cont In Process Unspecified. EDMS 21:08 Wyatt Mari MD is Hospitalizing Provider. ricky 21:19 CT Head Angio In Process Unspecified. EDMS 21:19 CT Neck Angio In Process Unspecified. EDMS 21:43 Patient has correct armband on for positive identification. Bed in low position. Call jb4 light in reach. Side rails up X 1. 21:43 No provider procedures requiring assistance completed. Patient admitted, IV remains in jb4 place. Administered Medications: 20:02 Drug: NS 0.9% IV 1000 ml Route: IV; Rate: 1 bolus; Site: left forearm; jb4 20:02 Drug: foLIC Acid IVPB 1 mg Route: IVPB; Site: left forearm; jb4 21:36 Drug: Famotidine IVP 20 mg Route: IVP; Site: left forearm; jb4 21:37 Drug: Meclizine PO 25 mg Route: PO; jb4 21:37 Drug: Aspirin PO Chewable Tablet 81 mg Route: PO; jb4 21:37 Drug: Clopidogrel PO 75 mg Route: PO; jb4 Outcome: 21:09 Decision to Hospitalize by Provider. [facility] 22:03 Admitted to Med/surg accompanied by tech, via wheelchair, room 214, with chart. jb4 22:03 Condition: stable 22:03 Discharge instructions given to patient, family, Instructed on the need for admit, Demonstrated understanding of instructions. 22:03 Patient left the ED. jb4 Signatures: Dispatcher [employer] EDFarhan Kang MD MD cha Bryson, James, RN RN jb4 Vee Clement am2 Kathryn Montelongo RN RN ll1 Shantal Sims mc5 Corrections: (The following items were deleted from the chart) 21:11 20:15 Reassessment: Pt to MRI jb4 jb4
[2023-02-09] MEDS ORDERED: ASPIRIN 81 MG CHEWABLE TABLET ONE (21:24)
[2023-02-09] MEDS ORDERED: CLOPIDOGREL 75 MG TABLET ONE (21:24)
[2023-02-09] MEDS ORDERED: FAMOTIDINE 20 MG/2 ML VIAL IV ONE (21:24)
[2023-02-09] MEDS ORDERED: MECLIZINE HCL 12.5 MG TAB ONE (21:24)
--- NOTE | 2023-02-09 21:26 | RAD REPORT ---
EXAM DESCRIPTION: CT - Neck Angio - 02/09/2023 9:18 pm CLINICAL HISTORY: dizziness COMPARISON: Soft Tissue Neck W/Contr dated 07/30/2022; Head C Spine Mpr Wo Con dated 10/22/2021 TECHNIQUE: CT angiography of the neck vessels was performed with maximum intensity reformatted image s. 3D maximum intensity pixel (MIP) reconstructions were created All CT scans are performed using dose optimization technique as appropriate and may include automated exposure control or mA/KV adjustment according to patient size. CAROTID STENOSIS REFERENCE USING NASCET CRITERIA: Mild - <50% stenosis. Moderate - 50-69% stenosis. Severe - 70-94% stenosis. Near occlusion - 95-99% stenosis. Occluded - 100% stenosis. FINDINGS: A left aortic arch is identified with normal three vessel configuration of the great vesse ls. No significant flow abnormality is seen of the common carotid bilaterally. No significant stenosis is identified involving the cervical segments of both internal carotid arteri es. Normal flow is seen within both vertebral arteries. Right dominant vertebral artery. IMPRESSION: No significant flow abnormality of the neck vessels is identified.
--- NOTE | 2023-02-09 21:28 | RAD REPORT ---
EXAM DESCRIPTION: CT - Head angio - 02/09/2023 9:18 pm CLINICAL HISTORY: DIZZINESS COMPARISON: Ct Stroke Brain Wo Cont dated 02/09/2023; Head Brain Wo Cont dated 07/30/2022; Neck Angio dated 02/09/2023; Brain W/Wo Cont dated 10/01/2022; MRA Neck W/Wo Cont dated 10/01/2022 TECHNIQUE: CT angiography of the head was performed with maximum intensity reformatted images. 3D ma ximum intensity pixel (MIP) reconstructions were created All CT scans are performed using dose optimization technique as appropriate and may include automated exposure control or mA/KV adjustment according to patient size. FINDINGS: Anterior circulation: No aneurysm or large vessel occlusion. No hemodynamically significant stenosis. No arteriovenous malf ormation identified. Posterior circulation: No aneurysm or large vessel occlusion. No hemodynamically significant stenosis. No arteriovenous malf ormation identified. Right dominant vertebral artery. IMPRESSION: No significant flow abnormality is detected.
[2023-02-09] MEDS ORDERED: ONDANSETRON 4 MG/2 ML VIAL IV PRN (21:42)
[2023-02-09] MEDS ORDERED: ACETAMINOPHEN 325 MG TABLET PO PRN (21:42)
[2023-02-09 22:21] LABS: Specific Gravity > 1.030 (1.005-1.030); Urine Bilirubin NEGATIVE (Negative); Urine Blood Negative (Negative); Urine Clarity Clear (Clear); Urine Color Colorless (Yellow); Urine Glucose NEGATIVE (Negative); Urine Protein NEGATIVE (Negative); Urine Urobilinogen Normal (Normal)
[2023-02-09] MEDS: NA CHLORIDE 0.9% 1,000 ML IV SCH (22:30)
[2023-02-09 22:46] VITALS: BMI 28.9
[2023-02-10 03:52] LABS: Absolute Lymphocytes (CBC) 1.6 K/uL (0.7-4.9); Hematocrit 31.1 % (39.6-49.0); Lymphocytes % 21.3 % (15.3-44.8); MCV 81.8 fL (80-100); MPV 8.4 fL (7.6-11.3); RBC Red Blood Cell Count 3.81 M/uL (4.33-5.43)
[2023-02-10 04:07] LABS: Potassium 4.1 mEq/L (3.5-5.1)
[2023-02-10] MEDS: FAMOTIDINE 20 MG/2 ML VIAL IV SCH ×2 (08:19→20:55)
[2023-02-10] MEDS: ASPIRIN EC 81 MG TAB PO SCH (08:19)
[2023-02-10] MEDS: NA CHLORIDE 0.9% 1,000 ML IV SCH (10:15)
[2023-02-10] MEDS: METOPROLOL TAR 25 MG TAB PO SCH (12:41)
--- NOTE | 2023-02-10 15:44 | EKG ---
Test Date: 2023-02-09 Test Time: 19:27:52 Reception Specialist: ZAHRA MEASUREMENT RESULTS: Intervals: Rate: 61 MD: 184 QRSD: 138 QT: 432 QTc: 434 [place]: P: 76 MD: 184 QRS: 14 T: 23 INTERPRETIVE STATEMENTS: Normal sinus rhythm Right bundle branch block Abnormal ECG Compared to ECG 10/07/2013 19:05:16 Right bundle-branch block now present Myocardial infarct finding no longer present Electronically Signed On 02-10-23 15:43:20 CDT by Silas Alejandro
--- NOTE | 2023-02-10 18:22 | CON ---
Date of Consultation: 02/10/2023 Reason For Consultation: Dizziness. History Of Present Illness: This is an 82-year-old male with past medical history of colon cancer, d iabetes, dyslipidemia, acid reflux, brought in to the hospital because of significant dizziness. He claims that he feels things are spinning around and he is unsteady on his feet. Denies having lighth eadedness. There is no diarrhea, nausea, vomiting. No chest pain. Past Medical History: As outlined above in the HPI. Medications: Refer to the consultation sheet for detailed list. Allergies: CODEINE. Family History: No premature coronary artery disease or cancer. Social History: Does not smoke or drink. Does not use any drugs. Review of Systems: All systems reviewed are negative, except as mentioned in HPI. Physical Examination: Vital Signs: Reviewed. His blood pressure on arrival was 165/90. General: Pleasant elderly male, in no distress. Head and Neck: Pupils are equal, reactive to light. Intact eye movements. Mildly elevated JVD. Lungs: Clear to auscultation bilaterally. No rhonchi, rales, or crackles. No accessory muscle use. Heart: Irregular. No extra sounds. Abdomen: Soft, nontender. Bowel sounds positive. No organomegaly. No masses or hernia. No rigidi ty or rebound. Extremities: No clubbing, cyanosis. Intact pulses. Skin: No rash. No edema. Neurologic: Alert, awake, oriented x3. No acute focal deficits appreciated. Investigations: Troponin x2 are negative. BUN 22, creatinine 1.02. Hemoglobin is 10.0. Assessment And Recommendation: 1.Dizziness. From the history, it seems like vertigo type and he has balance issue. MRI of the bra in did not show any acute abnormalities. I recommend Neurology evaluation and monitor him on telemet ry while in the hospital and obtain echocardiogram. 2.Hypertension. Resume home medications and adjust as needed. 3.Hyperkalemia on admission. This has resolved. Continue to monitor. I recommend Neurology plus-m inus ENT evaluation for his vertigo. SR/MODL Voice ID: [id number] Report ID: [id number]
[2023-02-10] MEDS: MECLIZINE HCL 12.5 MG TAB PO PRN (20:55)
[2023-02-10] MEDS: ATORVASTATIN 10 MG TAB PO SCH (20:55)
[2023-02-11] MEDS: METOPROLOL TAR 25 MG TAB PO SCH (05:21)
[2023-02-11] MEDS: METFORMIN ER 500 MG TAB PO SCH (08:54)
[2023-02-11] MEDS: ASPIRIN EC 81 MG TAB PO SCH (08:54)
[2023-02-11] MEDS: FAMOTIDINE 20 MG/2 ML VIAL IV SCH ×2 (08:55→21:54)
--- NOTE | 2023-02-11 14:13 | ECHO ---
HEIGHT: 5 ft 9 in WEIGHT: 196 lb 0 oz DATE OF STUDY: 02/11/[address]: Farhan Blanchard MD 2-DIMENSIONAL: YES M.MODE: YES DOPPLER: YES COLOR FLOW: YES TDS: NO PORTABLE: YES DEFINITY: NO BUBBLE STUDY: NO DIAGNOSIS: DIZZINESS CARDIAC HISTORY: CATHERIZATION: SURGERY: PROSTHETIC VALVE: PACEMAKER: MEASUREMENTS (cm) DIASTOLIC (NORMALS) SYSTOLIC (NORMALS) IVSd 1.0 (0.6-1.2) LA Diam 4.3 (1.9-4.0) LVEF 62% LVIDd 5.3 (3.5-5.7) LVIDs 3.5 (2.0-3.5) %FS 34% LVPWd 1.1 (0.6-1.2) Ao Diam 3.2 (2.0-3.7) 2 DIMENSIONAL ASSESSMENT: RIGHT ATRIUM: NORMAL LEFT ATRIUM: ENLARGED RIGHT VENTRICLE: NORMAL LEFT VENTRICLE: NORMAL TRICUSPID VALVE: NORMAL MITRAL VALVE: MILD MITRAL REGURGITATION PULMONIC VALVE: MILD PULMONIC INSUFFICIENCY AORTIC VALVE: MILD AORTIC INSUFFICIENCY PERICARDIAL EFFUSION: NONE AORTIC ROOT: NORMAL LEFT VENTRICULAR WALL MOTION: NORMAL. DOPPLER/COLOR FLOW: SEE BELOW. COMMENTS: 1. NORMAL LEFT VENTRICULAR EJECTION FRACTION 60-65% WITH NORMAL WALL MOTION. 2. MODERATE DIASTOLIC DYSFUNCTION. 3. LEFT ATRIAL ENLARGEMENT. 4. MILD MITRAL REGURGITATION/ MILD AORTIC INSUFFICIENCY. 5. MILD PULMONIC INSUFFICIENCY. TECHNOLOGIST: ZACH FRANCES
--- NOTE | 2023-02-11 14:22 | PN ---
Date of Progress Note: 02/11/2023 Patient is still symptomatic, awaiting results of the echo and neurological consult. I feel he may b e a candidate for rehab with his problem of vertigo and generalized weakness. According to the nurse s, he did have some confusional episodes last night and today he does not seem confused. However, he is not quite responsive either, may be secondary to medication and/or the hospitalization status him self. It was suggested to his that he stay at least overnight. HR/MODL Voice ID: [id number] Report ID: [id number]
[2023-02-11] MEDS: ATORVASTATIN 10 MG TAB PO SCH (21:53)
[2023-02-11] MEDS: MECLIZINE HCL 12.5 MG TAB PO PRN (21:54)
--- NOTE | 2023-02-11 21:58 | HP ---
Date of Admission: 02/11/2023 Entrance Complaint: Dizziness. History Of Present Illness: According to the patient, he was in usual state of health approximately 24 hours prior to being admitted when he had sudden onset of what he describes as severe dizziness, w hich he states he has been unaccustomed to, has had occasional lightheadedness in the past, but not t he way he describes the dizziness. He has difficulty mobilizing. No other symptoms other than the f act that he was unsteady and spinning. He was brought to the emergency room and admitted. Past History: Patient has had multiple problems since he fell and had a fractured jaw, which require d surgical procedures by oral surgeon. Had some difficulty with recovery. However, he thought he wa s doing quite well until this recent episode. Past history also includes colon cancer and NIDDM, whi ch is under good control with medication and diet. Family History: Noncontributory. Social History: Nonsmoker, nondrinker. Physical Examination: General: Patient is an elderly male, slightly hypertensive, in no acute distress. Head and Neck: Normocephalic. Pupils are equal to light and accommodation. Fundi negative. Trache a midline. Thyroid not palpable. ENT: Negative other than some wax in both ears make some difficulty visualizing the membrane. Howev er, what can be seen seems to be normal light reflex. Chest: Clear to P and A. Cardiovascular: PMI midclavicular line. Heart sounds normal. Peripheral pulses are present and equal bilaterally. Abdomen: No organomegaly. Bowel sounds are present. Extremities: Good tone and movement bilaterally. Reflexes physiologic. Positive cerebellar in rega rd to his ataxia as he requires the walker to maintain his balance. However, there was no apparent v isual field defect. Rectal: Deferred. Impression: Acute episode of vertigo, possibly secondary to cardiovascular disease and/or inner ear; hypertension, controlled; hyperlipidemia, controlled; noninsulin-dependent diabetes mellitus, good c ontrol; post carcinoma of colon by history. Plan: Patient will be admitted, placed on IV fluids, started on symptomatic treatment. Cardiovascul ar and neurological consultation will be obtained and depending on the results, we will necessitate t reatment. It should be noted CT MRI of the brain did not show any vascular abnormalities. Therefore , more likely an inner ear problem is causing the vertigo. HR/MODL Voice ID: [id number]
[2023-02-12] MEDS: METOPROLOL TAR 25 MG TAB PO SCH (05:13)
[2023-02-12] MEDS: METFORMIN ER 500 MG TAB PO SCH (08:32)
[2023-02-12] MEDS: ASPIRIN EC 81 MG TAB PO SCH (08:32)
[2023-02-12] MEDS: FAMOTIDINE 20 MG/2 ML VIAL IV SCH ×2 (08:33→21:14)
--- NOTE | 2023-02-12 14:42 | RAD REPORT ---
EXAM DESCRIPTION: CT - Head Brain Wo Cont - 02/12/2023 2:23 pm CLINICAL HISTORY: weakness Headache, drowsiness, CVA symptomology COMPARISON: Head angio dated 02/09/2023; Ct Stroke Brain Wo Cont dated 02/09/2023Head angio dated 02/09; Ct Stroke Brain Wo Cont dated 02/09/2023; Brain Wo Cont dated 02/09/2023 TECHNIQUE: All CT scans are performed using dose optimization technique as appropriate and may inclu de automated exposure control or mA/KV adjustment according to patient size. FINDINGS: No intracranial hemorrhage, hydrocephalus or extra-axial fluid collection.Moderate gliosis right cerebellar hemisphere and right frontal lobe most likely related to old infarct. Moderate gene ralized brain atrophy is present with moderate periventricular and deep white matter chronic microvas cular ischemic changes.No areas of brain edema or evidence of midline shift. The paranasal sinuses and mastoids are clear. The calvarium is intact. IMPRESSION: No acute intracranial abnormality.
--- NOTE | 2023-02-12 15:41 | PN ---
Date of Progress Note: 02/12/2023 The patient states he feels better. He is not dizzy. However, when we tried to mobilize him, he fal ls backwards immediately. Discussion of the home situation is that he and his are there. I do not feel that she could take care of him at all in his present state and in fact I repeated his CT sc an because I think his equilibrium is worst than it had been, although his mentation has improved. T he neurological consultation apparently was not follow-through and so I spoke to the neurologist and he will see him later and reorder the CT scan for today to see if there is any acute bleed unlikely. More likely scenario is according to Dr. Guzman a fresh cerebellar stroke [facility]. He is also being evaluated for rehab. HR/MODL Voice ID: [id number] Report ID: [id number]
[2023-02-12] MEDS: ATORVASTATIN 10 MG TAB PO SCH (21:00)
[2023-02-12] MEDS: MECLIZINE HCL 12.5 MG TAB PO PRN (21:14)
[2023-02-13] MEDS: METOPROLOL TAR 25 MG TAB PO SCH (05:42)
[2023-02-13] MEDS: ASPIRIN EC 81 MG TAB PO SCH (08:51)
[2023-02-13] MEDS: FAMOTIDINE 20 MG/2 ML VIAL IV SCH ×2 (08:51→20:16)
[2023-02-13] MEDS: METFORMIN ER 500 MG TAB PO SCH (08:51)
--- NOTE | 2023-02-13 16:23 | CON ---
Reason For Consultation: Consultation called because of dizziness. History Of Present Illness: Mr. Taylor is an 82-year-old right-handed patient, who was adm itted with the complaint as noted above with dizziness. Review of his discharge indicates that he in itially had a similar presentation of dizziness in 2010; however, there was no brain MRI or CT scan d ocumented in the system. At that time, his complaints on 01/27/2012 were that he was dizzy, hot, cla mmy, and was vomiting. Further review also indicates that the patient has had a right cerebellar str george that was chronic by scan of the brain done on 10/16/2021. The patient's who is at the [facility] has some cognitive issues and cannot provide a very detailed history and in addition the patient h imself is not able to give a clear history. A friend who was in the room did note that he has had so me problems with his balance more than a year ago, had a tendency to fall. He was in a grocery store , actually fell. They could not recall if it is the right side or left side. The patient precipitated this admission occurred while sitting in the computer and the computer started to move. He said the computer was moving from right to left. He became nauseated. He got up, tried to take some medications and then threw up. At [facility], his brain imaging included a head CT sc an, which showed no acute ischemic hemorrhagic change, but chronic small vessel ischemic disease and chronic right cerebellar stroke. The brain MRI done on 02/09/2023 did show a larger right cerebellar stroke and also a smaller left cerebellar stroke in addition to chronic small vessel ischemic diseas e that is advanced with bilateral frontal lobe of parietal chronic strokes and again right greater th an left cerebellar hemisphere strokes. In addition, there was small focus of susceptibility in the r ight thalamus likely secondary to remote micro-hemorrhagic infarcts. The patient denies vertigo symp toms while turning over in bed. The symptoms have occurred while sitting up and again working on his computer, which his says is his favorite thing to do while at home. White blood cell count was unremarkable at 7.6, hemoglobin slightly low at 10. His hydration level w as unremarkable with normal creatinine, glucose ranged from 72 to 103, calcium 8.2, sodium and potass ium normal, BUN slightly elevated at 22. His urinalysis showed a specific gravity of greater than __ , but was otherwise negative. His echocardiogram was an essentially unremarkable study with ejection fraction of the left ventricle 60% and moderate diastolic dysfunction. The patient has been hospitalized and not yet ambulated. He is actually awaiting transfer to [facility] rehabilitation since he still has some sense of vertigo when standing and trying to ambulate and h as become somewhat weaker since he has been mostly bed-ridden over the last 4 to 5 days due to his te ndency to fall with nausea and vomiting. Past Medical History: Diabetes mellitus, dyslipidemia, colon cancer, history of stroke. Allergies: CODEINE AND CUCUMBER. Past Surgical History: Colon cancer surgery. Medications: Aspirin 81 mg daily, Lipitor 10 mg at bedtime, Pepcid 20 mg daily, meclizine 25 mg ever y 6 hours, metformin 500 mg daily, Lopressor 25 mg daily, Tylenol 650 mg every 4 hours as needed. Family History: Noncontributory. Social History: No alcohol or tobacco use except he did actually chew tobacco with no smoking tobacc o. The patient does live with his in a single family home. Review of Systems: No recent fevers or chills. He did have nausea, vomiting, vertigo symptoms. No rash. No headache. No weight change. No psychiatric complaints. No focal weakness in the face, arm, or leg. No focal sensory loss and again difficulty with coordination, tendency to fall, further room to turn from rig ht to left again as he is trying to look at his computer. Otherwise, negative on systems review. Physical Examination: Vital Signs: Blood pressure 139/81, pulse 80, respiratory rate 14, temperature 97, the oxygen satura tion 95% on room air. General: Mr. Taylor is resting in bed. HEENT: He appears normocephalic, atraumatic. Sclerae anicteric. Oropharynx is pink and moist. Neck: Supple. Chest: Clear. Heart: Regular. Extremities: Show no significant edema or cyanosis. Neurological: He is alert, oriented to situation, place, person. His responses are slow, but approp riate and he does have poor hearing. His cranial nerves show no focal deficits. On motor, again no focal weakness in upper or lower extremities coordination. No significant incoordination, just diffu se weakness. He will be ambulated with the therapist with a gait belt. At this point, he did not johnson ve any nystagmus on either side and no focal sensory loss. He has a stocking-glove loss and depresse d reflexes. Assessment And Plan: Mr. 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 The etiology of these strokes is clear. The patient at this workup had no evidence of atrial fibrillation, but that may be a consideration g iven multiple strokes. However, hypertension can lead to small vessel ischemic disease, a nd multiple lacunar infarcts as well. He does not have full features currently of peripheral vertigo , though there are likely components of that superimposed on central vertigo from his chronic cerebel lar strokes. The brain MRI has ruled out any new strokes and repeat CT scan shows no issues in terms of acute findings. The presence of potential microhemorrhages is worrisome for some other etiology; however, given his age of 82, the exotic findings such as vasculitis are unlikely. Plan: Continue with aspirin, may add Plavix 75 mg daily, continue with metformin, continue with Lopr essor, continue with Antivert, and continue with admission to the inpatient rehabilitation unit for a ggressive physical, occupational, and speech therapy. The patient may have the Danie maneuver while he is in rehab. MARYJO/BRYAN Voice ID: [id number] Report ID: [id number]
[2023-02-13] MEDS: ATORVASTATIN 10 MG TAB PO SCH (20:15)
[2023-02-14] MEDS: METOPROLOL TAR 25 MG TAB PO SCH (06:00)
[2023-02-14] MEDS: FAMOTIDINE 20 MG/2 ML VIAL IV SCH ×2 (09:00→20:26)
[2023-02-14] MEDS: ASPIRIN EC 81 MG TAB PO SCH (09:00)
[2023-02-14] MEDS: METFORMIN ER 500 MG TAB PO SCH (09:00)
--- NOTE | 2023-02-14 14:59 | PN ---
Date of Progress Note: 02/14/2023 The patient actually seems slightly worse today as far as his speech and orientation seems okay. He states he feels the same; however, as mentioned, I think there is a definite change in his speech and acuity. In any event, I do not think there is a question of any sustained CVA. Plavix was added to the regimen. Awaiting insurance information and transferring. HR/MODL Voice ID: [id number] Report ID: [id number]
[2023-02-14] MEDS: ATORVASTATIN 10 MG TAB PO SCH (20:26)
[2023-02-15] MEDS: METOPROLOL TAR 25 MG TAB PO SCH (06:25)
[2023-02-15] MEDS: ASPIRIN EC 81 MG TAB PO SCH (08:46)
[2023-02-15] MEDS: METFORMIN ER 500 MG TAB PO SCH (08:46)
[2023-02-15] MEDS: FAMOTIDINE 20 MG/2 ML VIAL IV SCH ×2 (08:46→20:31)
--- NOTE | 2023-02-15 15:38 | PN ---
Date of Progress Note: 02/15/2023 The patient is seen basically status quo. He is slightly confused, a little bit dysarthric. We will repeat the MRI with and without contrast. Still waiting placement for the rehab in regard to his in surance. Discussion of the case with Dr. Guzman, question of acute or subacute CVA, TIA. Continue with his present regimen. Did have 2 short bursts of A flutter 48 hours ago and had no abnormality since. The question whether to put him on Eliquis rather than the Plavix will remain on hold. We wi ll discuss further with Cardiology once the MRI is obtained. Possibly decision will be made by destiney malagon. His appetite is good. He has no nausea. Body functions are within normal limits. I suspect lisa catalan did have an acute on chronic episode of cerebellar vascular injury. HR/MODL Voice ID: [id number] Report ID: [id number]
--- NOTE | 2023-02-15 20:29 | RAD REPORT ---
EXAM DESCRIPTION: MRI - Brain W/Wo Cont - 02/15/2023 8:12 pm CLINICAL HISTORY: Dizziness Hx CVA Headache, drowsiness, CVA COMPARISON: Head Brain Wo Cont dated 02/12/2023; Brain Wo Cont dated 02/09/2023; Brain W/Wo Cont dated 10/01/2022; MRA Neck W/Wo Cont dated 10/01/2022 TECHNIQUE: Multi-sequence, multiplanar MR imaging of the brain was performed with contrast. FINDINGS: No intracranial hemorrhage, hydrocephalus, or extra-axial fluid collection.Moderate conflu ent T2/FLAIR hyperintensity in the periventricular and deep white matter is present compatible with c hronic microvascular ischemic changes. Gliosis is present right cerebellar hemisphere compatible with old infarction.. No intracranial mass. DWI is negative for acute CVA. The midline structures are normally formed. Mastoid air cells and paranasal sinuses are clear. Post-contrast images show no abnormal enhancement to suggest tumor or infection. IMPRESSION: Negative for acute CVA or other acute intracranial process. No pathologic post-contrast enhancement suspected.
[2023-02-15] MEDS: ATORVASTATIN 10 MG TAB PO SCH (20:31)
[2023-02-16] MEDS: METOPROLOL TAR 25 MG TAB PO SCH (05:19)
[2023-02-16] MEDS: ASPIRIN EC 81 MG TAB PO SCH (09:00)
[2023-02-16] MEDS: METFORMIN ER 500 MG TAB PO SCH (09:00)
[2023-02-16] MEDS: FAMOTIDINE 20 MG/2 ML VIAL IV SCH ×2 (09:01→21:01)
--- NOTE | 2023-02-16 13:17 | EKG ---
Test Date: 2023-02-15 Test Time: 14:10:09 Respiratory Care Faculty: YOON MEASUREMENT RESULTS: Intervals: Rate: 81 ME: 162 QRSD: 134 QT: 430 QTc: 499 [place]: P: 63 ME: 162 QRS: -25 T: 35 INTERPRETIVE STATEMENTS: Normal sinus rhythm Possible Left atrial enlargement Right bundle branch block Septal infarct, age undetermined Abnormal ECG Compared to ECG 02/09/2023 19:27:52 Myocardial infarct finding now present Electronically Signed On 02-16-23 13:15:41 CDT by Silas Alejandro
[2023-02-16] MEDS ORDERED: TEMAZEPAM 15 MG CAP PO PRN (14:56)
--- NOTE | 2023-02-16 16:55 | PN ---
Date of Progress Note: 02/16/2023 The patient's mental status has decreased somewhat. He has been basically staying in bed. His appet ite is decreased; however, his MRI recently showed no progression in acute injury. EKG did show some changes echo and EKG. He is also slightly dehydrated. We will add some IV fluids and re peat his blood counts tomorrow. As far as his disposition is concerned, apparently initial insurance decision was no for rehab; however, an appeal is going to be made by Dr. Guzman. Depending on tho se results, it will depend on the placement. Discussion was also held with his as far as her DN R is concerned. There is no legal documentation from her perspective and has no children and much di scussion was settled on a DNI, which she seemed quite comfortable with. HR/MODL Voice ID: [id number] Report ID: [id number]
[2023-02-16] MEDS: NA CHLORIDE 0.9% 1,000 ML IV SCH (21:00)
[2023-02-16] MEDS: ATORVASTATIN 10 MG TAB PO SCH (21:01)
[2023-02-17 04:01] LABS: Absolute Lymphocytes (CBC) 1.7 K/uL (0.7-4.9); Hematocrit 34.2 % (39.6-49.0); Lymphocytes % 23.2 % (15.3-44.8); MCV 81.1 fL (80-100); MPV 8.4 fL (7.6-11.3); RBC Red Blood Cell Count 4.22 M/uL (4.33-5.43)
[2023-02-17 04:14] LABS: Magnesium 2.1 mg/dL (1.6-2.4); Potassium 4.2 mEq/L (3.5-5.1)
[2023-02-17] MEDS: METOPROLOL TAR 25 MG TAB PO SCH (05:57)
[2023-02-17] MEDS: NA CHLORIDE 0.9% 1,000 ML IV SCH (06:18)
[2023-02-17] MEDS ORDERED: NA CHLORIDE 0.9% 1,000 ML IV SCH (07:00)
[2023-02-17] MEDS ORDERED: D5W 1,000 ML IV SCH (07:06)
--- NOTE | 2023-02-17 07:36 | RAD REPORT ---
EXAM DESCRIPTION: Tung Single View02/17/2023 6:44 am CLINICAL HISTORY: Chest pain COMPARISON: February 09, 2023 FINDINGS: The lungs appear clear of acute infiltrate. The heart is normal size IMPRESSION: No acute abnormalities displayed
[2023-02-17] MEDS: ASPIRIN EC 81 MG TAB PO SCH (09:00)
[2023-02-17] MEDS: METFORMIN ER 500 MG TAB PO SCH (09:00)
[2023-02-17] MEDS: FAMOTIDINE 20 MG/2 ML VIAL IV SCH ×2 (14:53→20:21)
[2023-02-17] MEDS: ATORVASTATIN 10 MG TAB PO SCH (20:21)
[2023-02-18 05:42] LABS: Absolute Lymphocytes (CBC) 1.9 K/uL (0.7-4.9); Hematocrit 37.4 % (39.6-49.0); Lymphocytes % 23.5 % (15.3-44.8); MCV 81.5 fL (80-100); MPV 8.1 fL (7.6-11.3); RBC Red Blood Cell Count 4.59 M/uL (4.33-5.43)
[2023-02-18] MEDS: METOPROLOL TAR 25 MG TAB PO SCH (05:44)
[2023-02-18 06:02] LABS: Magnesium 2.2 mg/dL (1.6-2.4)
[2023-02-18 08:20] VITALS: TEMP 98.2
[2023-02-18] MEDS: ASPIRIN EC 81 MG TAB PO SCH (08:54)
[2023-02-18] MEDS: FAMOTIDINE 20 MG/2 ML VIAL IV SCH (08:54)
[2023-02-18 09:40] VITALS: O2SAT 93
[2023-02-18 15:47] VITALS: BP 143/70
--- NOTE | 2023-02-18 16:00 | PN ---
Date of Progress Note: 02/18/2023 The patient seems to be slightly improved both mentally and physically today. His lab work is consis tent. He was started on his new diet, which he has tolerated well. Still awaiting placement from [facility], hopefully will be obtained by the end of the day today. Depending on their deci agnieszka, placement will be made. HR/MODL Voice ID: [id number] Report ID: [id number]
--- NOTE | 2023-02-22 15:06 | EKG ---
Test Date: 2023-02-18 Test Time: 16:59:47 Staffing Recruiter: JACKSON MEASUREMENT RESULTS: Intervals: Rate: 58 CT: 172 QRSD: 148 QT: 468 QTc: 459 [place]: P: 59 CT: 172 QRS: -9 T: 17 INTERPRETIVE STATEMENTS: Sinus bradycardia Right bundle branch block Abnormal ECG Compared to ECG 02/18/2023 16:58:42 Sinus rhythm no longer present Electronically Signed On 02-22-23 14:58:47 CDT by Silas Alejandro
== END 2023-02-18 18:19 | DRG 149 ==
LOC: ER 18:21 → ERHOLD 21:14 → 2ND 21:48 → OBSVTOIN 02-11 16:05 → 2ND 02-15 19:20
PROVIDERS: ADMIT Family Medicine; ATTEND Family Medicine
DX: R42 Dizziness and giddiness (principal); I10 Essential (primary) hypertension; E87.5 Hyperkalemia; E86.0 Dehydration; K21.9 Gastro-esophageal reflux disease without esophagitis; E11.65 Type 2 diabetes mellitus with hyperglycemia; E78.00 Pure hypercholesterolemia, unspecified; F17.220 Nicotine dependence, chewing tobacco, uncomplicated; Z88.5 Allergy status to narcotic agent; Z86.73 Personal history of transient ischemic attack (TIA), and cerebral infarction without residual deficits; Z79.82 Long term (current) use of aspirin; Z85.038 Personal history of other malignant neoplasm of large intestine; Z91.018 Allergy to other foods
CPT/HCPCS: 36415; 70450; 70496; 70498; 70551; 70553; 71045; 80048; 81003; 82947; 83735; 84484; 85025; 92526; 92610; 93005; 93306; 94760; 96374; 96375; 97110; 97116; 97161; 97165; 97530; 99285; A9577; G0378; J7030; J8597; Q9967

== ENCOUNTER 2023-02-18 15:17 | Inpatient (IN) | payer OTHER ==
--- OUTSIDE RECORDS SUMMARY | 2023-02-18 18:31 | XMS REPORT | Continuity of Care Document ---
:1940 Author Organization [facility] t Address [address] [place] [id number] Care Team Providers Name Role Phone Unavailable Unavailable Unavailable Payers Payer Name Policy Type Policy Number Effective Date Expiration Date S [place] [employer] PPO [id number] 2021 00:00:00 Problems This patient has no known problems. Allergies, Adverse Reactions, Alerts This patient has no known allergies or adverse reactions. Medications This patient has no known medications. Procedures This patient has no known procedures. Encounters Start End Encounter Admission Attending Care Care Encounter Source Date/Time Date/Time Type Type Clinicians Facility Department ID 2022-08-24 Outpatient [facility] [id number] [place] 10:43:54 [id number] Health Results This patient has no known results.
[2023-02-18] MEDS ORDERED: FEXOFENADINE 180 MG TAB PO PRN (19:34)
[2023-02-18] MEDS ORDERED: RESTASIS OPTH PRN (19:38)
[2023-02-18] MEDS ORDERED: MECLIZINE HCL 12.5 MG TAB PO PRN (19:45)
[2023-02-18] MEDS ORDERED: ONDANSETRON 4 MG (ODT) TAB PO PRN (19:49)
[2023-02-18] MEDS ORDERED: ACETAMINOPHEN 325 MG TABLET PO PRN (19:49)
[2023-02-18] MEDS ORDERED: NAPROXEN 250 MG TAB PO PRN (19:51)
[2023-02-18] MEDS: ATORVASTATIN 20 MG TAB PO SCH (21:00)
[2023-02-18] MEDS: TEMAZEPAM 15 MG CAP PO PRN (21:00)
[2023-02-19] MEDS: PANTOPRAZOLE 40MG TABLET PO SCH (05:20)
[2023-02-19] MEDS ORDERED: D50W 25 GM/50 ML SYRINGE IV PRN (05:44)
[2023-02-19] MEDS ORDERED: GLUCAGON 1 MG/VIAL IM PRN (05:44)
[2023-02-19] MEDS ORDERED: D10W 125 ML IV PRN (05:49)
[2023-02-19 05:58] LABS: Absolute Lymphocytes (CBC) 1.9 K/uL (0.7-4.9); Hematocrit 41.7 % (39.6-49.0); Lymphocytes % 21.3 % (15.3-44.8); MCV 82.1 fL (80-100); MPV 8.2 fL (7.6-11.3); Platelets 179 thou/uL (152-406); RBC Red Blood Cell Count 5.08 M/uL (4.33-5.43)
[2023-02-19] MEDS ORDERED: METOPROLOL XL 25 MG TAB PO SCH (06:00)
[2023-02-19 06:14] LABS: Albumin 3.6 g/dL (3.4-5.0); Magnesium 2.3 mg/dL (1.6-2.4); Potassium 4.5 mEq/L (3.5-5.1)
[2023-02-19] MEDS: INSULIN -REGULAR HUMAN 50 UNIT/0.5 ML ML SQ SCH ×4 (07:16→19:56)
[2023-02-19] MEDS: ASPIRIN EC 81 MG TAB PO SCH (08:47)
[2023-02-19] MEDS: MULTIVITAMIN TAB PO SCH (08:47)
--- NOTE | 2023-02-19 18:44 | HP ---
Date of Admission: 02/18/2023 Time Of Service: 2 p.m. Chief Complaint: "I have been falling and I have more than 1 stroke." History Of Present Illness: Mr. Taylor is an 82-year-old patient with multiple stroke risk factors, who came to [facility] Emergency Room with sudden onset of severe dizziness, difficulty with ambulation swallowing. He had head CT scan showed no acute ischemic hemorrhagic change. 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 The patient was evaluated by Physical Therapy and determined to require mod to max donya t ability to mobilize and to ambulate very short distances less than 10 feet. Also, the p atient has had more confusion, disorientation intermittent and he was deemed to be appropriate for sp eech therapy as well. He required too much help at least in the moderate level for his activities of daily living with occupational therapy that he required. As a result of his significant decline in weakness, incoordination, and need for multiple disciplines along with management of his medical cond itions, he was determined to be an appropriate candidate for inpatient rehabilitation and was therefo re admitted to the inpatient rehabilitation unit for physical, occupational, and speech therapy. Past Medical History: Congestive heart failure, diabetes mellitus, dyslipidemia, colon cancer. Past Surgical History: Colon cancer surgery. Allergies: CODEINE AND CUCUMBER. Medications: Aspirin 81 mg daily, Lipitor 10 mg at bedtime, Pepcid 20 mg daily, meclizine 25 mg 6 ho urs as needed, metformin 500 mg daily, Lopressor 25 mg daily, Tylenol 650 mg every 6 hours as needed. Family History: Noncontributory. Social History: The patient lives with family and his . He denies alcohol, tobacco, or IV drug use. Laboratory Studies: White blood cell count 9, hemoglobin 13.5, platelets 179. Sodium 139, potassium 4.5, chloride 110, carbon dioxide 25, BUN 20, creatinine 1.43, glucose ranged from 88 to 117, calciu m 9.5, magnesium 2.3, prealbumin 21.6, albumin 3.6. Urinalysis shows specific gravity greater than 1 .03, but was otherwise negative. X-ray/imaging: Chest x-ray from 02/17 showed no acute abnormalities, heart was of normal size, no in filtrates seen. Brain MRI done 02/15/2023 shows negative for acute ischemic hemorrhagic change. The patient does have chronic strokes as noted in the cerebellum larger in right and there is microvascu lar ischemic disease throughout. Brain MRI from 02/09 does show a large right cerebellar stroke and also small left cerebral stroke and chronic small vessel ischemic disease, advanced in bilateral fron gen and parietal regions, right greater than left cerebellar stroke noted. Review of Systems: Mr. Taylor is resting in bed, his at the bedside. He appears normocephalic, atraumat ic. Sclerae anicteric. Oropharynx is pink, moist. Neck: Supple. Chest: Clear. Heart: Regular. Extremities: Show no significant edema or cyanosis. Neurological: Oriented to situation, place, and follows commands. Cranial nerves, no focal deficits . On motor exam, diffuse weakness in upper and lower extremities and his biggest issue was incoordin ation more in the lower than left upper and lower extremities. There is a tendency to past point and has incoordination in the left and right lower extremity. Reflexes depressed. Sensation, stocking- glove loss. He will be ambulated with the physical therapists and thus far. The patient was not saf e to ambulate unassisted as he had significant difficulties leaning to the right. He did participate 75 feet on a rolling walker, min to mod assist required. Physical Examination: Vital Signs: Blood pressure 135/67, pulse 65, respiratory rate 16, temperature 97.1, oxygen saturati on 96%. General: Mr. Taylor is resting in bed again, not in acute distress. His exam as noted above. Current Level Of Functioning: Supervision for eating, oral hygiene and contact guard for toileting, moderate assist for showering, contact guard for upper body dressing and lower body dressing, rolling right and left and left to right. Rehabilitation Medical Assessment And Plan: Mr. Taylor is admitted to inpatient rehabilitation unit with impairment category is 01 stroke. His impairment group code is 01.3 bilateral involvement. Emmie ologic diagnosis is cerebellar stroke. Comorbids; congestive heart failure, confusion, diabetes lily itus, falls, fatigue, dyslipidemia, hypertension, vertigo, and weakness. Plan: 1.Mr. Taylor to have physical, occupational, and speech therapy for 3.5 hours, 5 of 7 days. 2.He will have physical therapy as noted and occupational therapy as noted. 3.His comorbid conditions will be addressed by continuing medication for hypertension, diabetes lily itus, dyslipidemia, for his congestive heart failure and for vertigo which is likely be peripheral an d central. He will have the Danie maneuver and meclizine and fall precautions to be adhered to at al l times with gait belt and rolling walker given cerebellar strokes. Impact Of Comorbidities: Given the multiple strokes, he is likely to have some cognitive deficits wh ich will be addressed with his speech therapy and also he has cerebellar strokes which will affect co ordination, but he will have preserved strength and is therefore at high risk of falls. Fall precaut ions again adhered to at all times. Rehab Specific Plan: 1.Mr. Taylor will have 3.5 hours, 5 of 7 days for physical, occupational, and speech therapy. 2.Mr. Taylor has a good understanding of the process of admission to the inpatient rehabilitation un and his need for physical, occupational, and speech therapy. If need be, services such as Cardiol ogy Service, the Respiratory Service, and diabetic teaching will be involved. Given his complex medi meli condition and risk of further complications, rehabilitation cannot be safely or effectively perfo rm at the lower level of care such as mcc. Barriers To Discharge: Currently, his cerebellar strokes make it difficult for him to maintain nannette ce, but he has preserved strength that places him at high risk of falling and therefore again fall pr ecautions will be strongly adhered. Estimated Length Of Stay: About 12 days. Disposition: Home with family. Prognosis: Good. Rehab Goals: 1.Become independent with upper and lower body dressing, max independent with transferring from bed to chair, wheelchair to toilet and shower. 2.Independent performing showering and toileting activities. 3.Independent ambulating 250 feet. 4.Independent going up and down 10 steps. 5.Independent with performing cognitive functioning. 6.The above goals have been reviewed with Mr. Taylor, who is in agreement. I acknowledge, I personally performed a full physical examination on Mr. Taylor no later than 24 hour s after admission to the inpatient facility and determined that he is able to tolerate the above cour se of treatment at an intensive level for reasonable period of time. A detailed individualized plan of care for him will be completed by hospital day 4 based on his preadmission screen, history and phy sical, and therapy evaluations. ITZEL Voice ID: [id number]
[2023-02-19] MEDS: TEMAZEPAM 15 MG CAP PO PRN (19:55)
[2023-02-19] MEDS: APIXABAN 2.5 MG TABLET PO SCH (19:56)
[2023-02-19] MEDS: ATORVASTATIN 20 MG TAB PO SCH (19:56)
[2023-02-20] MEDS: PANTOPRAZOLE 40MG TABLET PO SCH (06:23)
[2023-02-20] MEDS: INSULIN -REGULAR HUMAN 50 UNIT/0.5 ML ML SQ SCH ×4 (07:30→19:24)
[2023-02-20] MEDS: METOPROLOL XL 25 MG TAB PO SCH (08:04)
[2023-02-20] MEDS: MULTIVITAMIN TAB PO SCH (08:04)
[2023-02-20] MEDS: ASPIRIN EC 81 MG TAB PO SCH (08:05)
[2023-02-20] MEDS: APIXABAN 2.5 MG TABLET PO SCH ×2 (08:05→19:24)
[2023-02-20 15:50] LABS: Calcium Oxalate Crystals- Ur Few /HPF (None Seen); Specific Gravity 1.025 (1.005-1.030); Urine Bacteria <20 /HPF (<20); Urine Bilirubin NEGATIVE (Negative); Urine Blood Negative (Negative); Urine Clarity Extremely Turbid (Clear); Urine Color Yellow (Yellow); Urine Glucose NEGATIVE (Negative); Urine Mucus 3+ /HPF (None Seen); Urine Protein 1+ (Negative); Urine Urobilinogen Normal (Normal)
[2023-02-20] MEDS: ATORVASTATIN 20 MG TAB PO SCH (19:24)
[2023-02-20] MEDS: TEMAZEPAM 15 MG CAP PO PRN (19:24)
[2023-02-21] MEDS: PANTOPRAZOLE 40MG TABLET PO SCH (06:44)
[2023-02-21] MEDS: APIXABAN 2.5 MG TABLET PO SCH ×2 (07:17→20:00)
[2023-02-21] MEDS: INSULIN -REGULAR HUMAN 50 UNIT/0.5 ML ML SQ SCH ×4 (07:17→20:02)
[2023-02-21] MEDS: MULTIVITAMIN TAB PO SCH (07:18)
[2023-02-21] MEDS: CRANBERRY FRUIT EXTRACT 200 MG CAP PO SCH ×2 (07:18→20:00)
[2023-02-21] MEDS: ASPIRIN EC 81 MG TAB PO SCH (07:18)
[2023-02-21] MEDS: METOPROLOL XL 25 MG TAB PO SCH (07:18)
[2023-02-21] MEDS: DORZOLAMIDE HCL OPTH SCH (20:00)
[2023-02-21] MEDS: ATORVASTATIN 20 MG TAB PO SCH (20:00)
[2023-02-21] MEDS ORDERED: LATANOPROST 0.005% 2.5ML OPTH OPTH SCH (20:00)
[2023-02-21] MEDS: TIMOLOL OPTH SCH (20:00)
[2023-02-21] MEDS: HOME MED [LATANOPROST 0.005% 2.5ML OPTH] OPTH SCH (20:00)
--- NOTE | 2023-02-22 01:33 | PN ---
Date of Progress Note: 02/21/2023 Time Of Service: 1:20 p.m. Subjective: Mr. Taylor is resting in the room. His family present is at the bedside. Today, he den ies new complaints, says he still has problems with his balance and difficulty walking around. He of ten just sits with his mouth mostly open, but when he is addressed, he is able to close his mouth and speak without much difficulty. No other subjective issues. Review of Systems: No fevers or chills. No nausea or vomiting, myalgias, arthralgias, rash, headache, weight change. Physical Examination: Vital Signs: Blood pressure 132/71, pulse 79, respiratory rate 16, temperature 97, ox saturation 93% . General: Mr. Taylor is sitting in a chair beside bed, in no acute distress. HEENT: He appears normocephalic, atraumatic. Sclerae anicteric. Oropharynx moist. Neck: Supple. Chest: Clear. Heart: Regular. Neurological: He has incoordination in upper and lower extremities, which are unchanged. 4/5 streng th proximally and distally. Laboratory Studies: White blood cell count 5.0, hemoglobin 13.5, platelets 179. His blood sugars ra nged from 99 to 132. Sodium 139, potassium 4.5, chloride 110, BUN 20, creatinine 1.42. Prealbumin 2 1, albumin 3.6. X-ray/imaging: None. Medications: Eliquis 2.5 mg twice daily, Tylenol 650 mg every 6 hours as needed, aspirin 81 mg daily , Lipitor 20 mg at bedtime, Kaity 180 mg daily, meclizine 25 mg every 6 hours as needed, metoprolol 25 mg daily, Centrum 1 tablet daily, Naprosyn 250 mg every 6 hours as needed, Protonix 40 mg daily, Restoril 15 mg at bedtime. Current Functional Status: Today, Mr. Taylor managed to ambulate 250 feet with a rolling walker and required minimum assistance at another 100 feet. Self propelled wheelchair 250 feet with minimum ass istance. Jum-xw-hsfsc done with multiple trials with minimum assistance. His speech therapy long-te rm goals will be to continue at least 80% of food, which is soft bite size with nectar thick liquids and improve cognition to a moderate level and Speech is working with the patient. Progress Towards Rehabilitation Goals: Mr. Taylor is making great progress with his goals of ambulat ing 500 feet with modified independence, up and down 10 steps with modified independence, transferrin g as well and performing ADLs and activities with modified independence. Does have some issues with his swallowing and speech and Speech Therapy is working with him on that. Assessment: Mr. Taylor is an 82-year-old patient who comes in with bilateral cerebellar strokes, gre ater on the right than left. Also, cerebral small vessel ischemic disease, congestive heart failure, encephalopathy, diabetes mellitus, fatigue, dyslipidemia, hypertension, vertigo, and diffuse weaknes s. Plan: 1.Continue with physical, occupational, and speech therapy for 3.5 hours, 5 of 7 days. 2.For the cerebellar strokes, the Danie maneuver may help some of his vertigo and that he continue a lso with meclizine. 3.We will continue Restoril for insomnia, Protonix for GE reflux, Zofran for any nausea. Multivitam in, Centrum, also Protonix for GE reflux, Toprol for hypertension, Eliquis with an aspirin for DVT pr ophylaxis and stroke risk reduction and Lipitor 20 mg at night for dyslipidemia. Comorbids That Continue To Impact Rehabilitation: His cognitive issues and some difficulty with swal lowing are posing a mild challenge to his therapy, but it is easily worked on with Speech as his diet consistency is changed and he may require a barium swallow to clearly determine the most appropriate liquid and solid food consistency. He otherwise has no comorbidities that negatively impact his rehabilitation. LB/MODL Voice ID: [id number] Report ID: [id number]
[2023-02-22] MEDS: PANTOPRAZOLE 40MG TABLET PO SCH (06:32)
[2023-02-22] MEDS: INSULIN -REGULAR HUMAN 50 UNIT/0.5 ML ML SQ SCH ×4 (07:30→19:30)
[2023-02-22] MEDS: CRANBERRY FRUIT EXTRACT 200 MG CAP PO SCH ×2 (07:42→19:06)
[2023-02-22] MEDS: MULTIVITAMIN TAB PO SCH (07:42)
[2023-02-22] MEDS: ASPIRIN EC 81 MG TAB PO SCH (07:42)
[2023-02-22] MEDS: APIXABAN 2.5 MG TABLET PO SCH ×2 (07:42→19:06)
[2023-02-22] MEDS: METOPROLOL XL 25 MG TAB PO SCH (07:43)
[2023-02-22] MEDS: TIMOLOL OPTH SCH ×2 (07:43→19:06)
[2023-02-22] MEDS: DORZOLAMIDE HCL OPTH SCH ×2 (07:43→19:06)
[2023-02-22] MEDS: HOME MED [LATANOPROST 0.005% 2.5ML OPTH] OPTH SCH ×3 (07:43→19:07)
[2023-02-22] MEDS: ATORVASTATIN 20 MG TAB PO SCH (19:06)
[2023-02-22] MEDS: BISACODYL E.C. 5 MG TAB PO PRN (19:06)
--- NOTE | 2023-02-23 02:11 | PN ---
Date of Progress Note: 02/22/2023 [facility] Progress Note Visit Time Of Service: 1:20 p.m. Subjective: Mr. Taylor is resting in his room in between therapy sessions. Denies no new complaints . He is able to articulate his wants and feels that he should be able to go home soon. Review of Systems: No recent fevers, chills, nausea, vomiting, myalgias, rash, or weight change. Physical Examination: Vital Signs: Blood pressure 111/65, pulse 72, respiratory rate 16, temperature 97.2, O2 saturation 9 4%. Extremities: He has incoordination, upper and lower extremities to coordinated movement such as fing er-to-nose and vvyx-zx-ooys. His strength is essentially preserved in the upper and lower extremitie s. Laboratory Studies: Blood sugars ranged from 100 to 162. X-ray/imaging: No new x-rays or imaging. Medications: Medications have been reviewed and are unchanged. Current Functional Status: Today, he ambulated 250 feet and 125 feet with a rolling walker with cont act guard assistance. His cqm-zg-noqyy transfer was done with minimal assistance, transfers from bed to wheelchair with minimum assistance, any needed verbal cues for safety. With occupational therapy , standby assistance from room to toilet and ambulated from room to dining room, with a rolling walke r with standby assistance. Minimal assistance for toileting and assistance needed to pull up pants a nd briefs at the back. With speech, he worked on short-term memory, temporal and spatial orientation , and sustained attention. He required minimum assistance for sustained attention, moderate assistan ce to minimum assistance with spatial orientation, and he could recall 3 of 3 unrelated items indepen dently after 3 minutes with only 2 of 3 after 5 minutes. Progress Towards Rehabilitation Goals: Mr. Taylor is making better progress now towards his goals of becoming independent with upper and lower body dressing, toileting, transferring, ambulating 250 fee t with modified independence, up and down 5 steps to 10 steps with modified independence and performi ng his cognitive functioning with modified independence. Assessment: Mr. Taylor is an 82-year-old patient with bilateral cerebellar strokes, larger on the nc ght. He has preserved strength, but has incoordination lower right and left upper and lower extremit ies. He has comorbid encephalopathy, congestive heart failure, diabetes mellitus, dyslipidemia, hype rtension, but not significant weakness. Plan: 1.Continue with physical, occupational, and speech therapy for 3.5 hours, 5 to 7 days. 2.He continues his comorbid condition medications including Toprol, Eliquis, aspirin, Protonix, Lipi tor, Zofran, and Restoril. Comorbidities That Continue To Impact His Rehabilitation: He did coordination due to cerebellar stro kes and his diffuse weakness are mildly impacting him, but he is overcoming those and doing very well . He is eating well. No evidence of aspiration. His oral coordination as well and his cognition is improving as well. LB/MODL Voice ID: [id number] Report ID: [id number]
[2023-02-23] MEDS: PANTOPRAZOLE 40MG TABLET PO SCH (07:04)
[2023-02-23] MEDS: INSULIN -REGULAR HUMAN 50 UNIT/0.5 ML ML SQ SCH ×4 (07:05→19:59)
[2023-02-23] MEDS: CRANBERRY FRUIT EXTRACT 200 MG CAP PO SCH ×2 (08:26→19:58)
[2023-02-23] MEDS: ASPIRIN EC 81 MG TAB PO SCH (08:26)
[2023-02-23] MEDS: MULTIVITAMIN TAB PO SCH (08:26)
[2023-02-23] MEDS: METOPROLOL XL 25 MG TAB PO SCH (08:28)
[2023-02-23] MEDS: APIXABAN 2.5 MG TABLET PO SCH ×2 (08:29→19:58)
[2023-02-23] MEDS: TIMOLOL OPTH SCH ×2 (09:23→20:01)
[2023-02-23] MEDS: DORZOLAMIDE HCL OPTH SCH ×2 (09:23→20:01)
[2023-02-23] MEDS: HOME MED [LATANOPROST 0.005% 2.5ML OPTH] OPTH SCH ×2 (09:24→20:01)
[2023-02-23] MEDS ORDERED: NA CHLORIDE 0.9% 1,000 ML IV SCH (15:00)
[2023-02-23] MEDS: ATORVASTATIN 20 MG TAB PO SCH (19:58)
[2023-02-23] MEDS: DULOXETINE 30 MG CAP PO SCH (19:58)
[2023-02-23] MEDS: BISACODYL E.C. 5 MG TAB PO PRN (19:58)
--- NOTE | 2023-02-24 01:36 | PN ---
Date of Progress Note: 02/23/2023 [facility] progress note visit. Time Of Service: 1:30 p.m. Subjective: Mr. Taylor is in his room in between therapy sessions. He seems to be more engaged toda y and is participating a little bit better, but still has significant features of depression. Review of Systems: No fevers, chills, nausea, vomiting, myalgias, arthralgias, rash, headache, or other issues. Physical Examination: Vital Signs: Blood pressure 118/66, pulse 71, respiratory rate 16, temperature 97.3, oxygen saturati on 97%. General: Mr. Taylor is resting in his chair beside his bed. HEENT: He is normocephalic, atraumatic. Sclerae anicteric. Oropharynx pink and moist. Neck: Supple. Chest: Clear. Neurologic: Does have difficulty with incoordination on dkwyjo-zh-yvft, utyx-qx-ncfa, more on the ri ght than left upper and lower extremities. Laboratory Studies: Blood sugars ranged from 107 to 126. X-ray Imaging: No new x-rays imaging. Medications: His medications have been reviewed. Now, he has Cymbalta 30 mg daily added to his lisy men to help with depression. His other medications have been reviewed and remain unchanged including medications for DVT prophylaxis, stroke risk reduction, for his dyslipidemia, for insomnia, GE reflu x. Current Functional Status: Today, Mr. Taylor was able to do supine to sit transfer independently and sit to stand transfer done with minimal assistance. He transferred from bed to wheelchair with mini mum assistance. He ambulated 200 feet once, and another 300 feet once with a rolling walker with min imum assistance. Self propelled wheelchair 175 feet with minimum assistance. His speech, he was oriented to temporal concepts with 50% accuracy and spatial concepts with 75% accu racy. He did demonstrate ability to swallow nectar-thick liquids with moderate cuing and has pudding consistency for his meals. He did so without overt signs of aspiration. Progress Towards Rehabilitation Goals: Mr. Taylor is making improved progress towards his goals of b ecoming independent with upper body dressing, transferring, toileting, showering, and ambulating 250 feet with modified independence and going up and down 5 steps with modified independence and performi ng cognitive functioning with modified independence. Assessment: Mr. Taylor is in the rehabilitation unit with bilateral cerebellar strokes, more on the right and left. His strength is preserved, but coordination is more significantly impacted. He has congestive heart failure, encephalopathy, diabetes mellitus, dyslipidemia, hypertension. Plan: 1.Continue with physical, occupational, and speech therapy for 3.5 hours, 5/7 days. 2.For his multiple comorbid conditions which are listed, he has medications which include Eliquis, T oprol, aspirin, Protonix, Zofran, Lipitor, Restoril. 3.Comorbid that continue to impact his rehabilitation. He does have some features of depression pos tstroke and antidepressants have been started today. Also, coordination or lack thereof has been a b ig issue given the cerebellar stroke, but he is working toward improving that with all of his activit ies of daily living, his ambulation, his ability to dress body his upper and lower body and can go up and down steps. LB/MODL Voice ID: [id number] Report ID: [id number]
[2023-02-24] MEDS: PANTOPRAZOLE 40MG TABLET PO SCH (05:37)
[2023-02-24 07:19] LABS: Absolute Lymphocytes (CBC) 1.6 K/uL (0.7-4.9); Hematocrit 33.6 % (39.6-49.0); Lymphocytes % 25.5 % (15.3-44.8); MCV 81.3 fL (80-100); MPV 8.2 fL (7.6-11.3); Platelets 148 thou/uL (152-406); RBC Red Blood Cell Count 4.13 M/uL (4.33-5.43)
[2023-02-24] MEDS: INSULIN -REGULAR HUMAN 50 UNIT/0.5 ML ML SQ SCH ×4 (07:30→21:00)
[2023-02-24 07:43] LABS: Albumin 2.8 g/dL (3.4-5.0); Prealbumin 16.2 mg/dL (20-40)
[2023-02-24] MEDS: CRANBERRY FRUIT EXTRACT 200 MG CAP PO SCH ×3 (08:42→21:14)
[2023-02-24] MEDS: ASPIRIN EC 81 MG TAB PO SCH (08:43)
[2023-02-24] MEDS: DORZOLAMIDE HCL OPTH SCH ×2 (08:43→21:15)
[2023-02-24] MEDS: TIMOLOL OPTH SCH ×2 (08:43→21:15)
[2023-02-24] MEDS: MULTIVITAMIN TAB PO SCH (08:43)
[2023-02-24] MEDS: METOPROLOL XL 25 MG TAB PO SCH (08:43)
[2023-02-24] MEDS: HOME MED [LATANOPROST 0.005% 2.5ML OPTH] OPTH SCH ×2 (08:43→21:15)
[2023-02-24] MEDS: APIXABAN 2.5 MG TABLET PO SCH ×2 (08:43→21:14)
[2023-02-24] MEDS ORDERED: DOCUSATE NA/SENNA CONC 1 TAB PO PRN (18:29)
[2023-02-24] MEDS: TAMSULOSIN 0.4 MG SR CAP PO SCH (21:14)
[2023-02-24] MEDS: DULOXETINE 30 MG CAP PO SCH (21:14)
[2023-02-24] MEDS: ATORVASTATIN 20 MG TAB PO SCH (21:15)
--- NOTE | 2023-02-24 23:24 | PN ---
Date of Progress Note: 02/24/2023 Time Of Service: 1:30 p.m. Subjective: Mr. Taylor is in the room with his at the bedside. Does appears somewhat more enga ged again. He still, however, opens his mouth half open for an unclear reason and however is able to close it and communicate appropriately. Review of Systems: No fevers, chills, nausea, vomiting, myalgias, arthralgias. Physical Examination: Vital Signs: Blood pressure 120/64, pulse 72, respiratory rate 16, temperature 97, oxygen saturation 93% on room air. Mr. Taylor does have incoordination in upper and lower extremities. He has well-p reserved strength in the upper and lower extremities. Chest: Clear. Heart: Regular. Extremities: Show no edema or cyanosis. Laboratory Studies: White blood cell count 6.4, hemoglobin 11.1, platelets 148. Sodium 142, potassi um 4.0, chloride 114, carbon dioxide 24, BUN 28, creatinine 1.3, prealbumin 16.2, albumin 2.8. X-ray/imaging: No new x-rays or imaging. Medications: His medications have been reviewed and remained unchanged. Current Functional Status: Today, he did cdyzss-gt-ljh transfers independently, jvu-uk-cjhiq transfe r done with contact guard assistance. He ambulated 250 feet twice and 500 feet with a rolling walker with minimum assistance. He ascended and descended 20 steps with bilateral handrails with contact g uard assistance. With occupational therapy, flg-px-oepop transfers and ambulating from room to toile t with a rolling walker done with supervision. Supervision for toilet hygiene. With his speech ther apy, he sustained attention for 3 minutes with 90% accuracy without cues. Demonstrated temporal orie ntation with 100% accuracy and spatial orientation with 75% accuracy. He did eat liquids and solids without evidence of overt aspiration. He is on bite size food with thin liquids. Progress Towards Rehabilitation Goals: Mr. Taylor is making great progress towards his goal of becom ing fully independent with upper and lower body dressing, toileting, showering, ambulating and eating a more regular consistency including thin liquids. Assessment: Mr. Taylor is an 82-year-old patient in the rehabilitation unit with bilateral cerebella r strokes and chronic small vessel ischemic disease. He has congestive heart failure, encephalopathy , diabetes mellitus, dyslipidemia, hypertension. Again, making great progress with physical, occupat ional, and speech therapy. Plan: 1.Continue with physical, occupational, speech therapy. 2.He has multiple medications which will be continued to address his comorbid conditions. 3.DVT prophylaxis with Eliquis, Protonix, Zofran, Lipitor, Restoril. Comorbidities That Continue To Impact Rehabilitation Process: He is improving his mood and is workin g harder and not significantly impacted in any negative way by his comorbid conditions. LB/MODL Voice ID: [id number] Report ID: [id number]
[2023-02-25] MEDS: PANTOPRAZOLE 40MG TABLET PO SCH (07:23)
[2023-02-25] MEDS: INSULIN -REGULAR HUMAN 50 UNIT/0.5 ML ML SQ SCH ×4 (07:26→20:33)
[2023-02-25] MEDS: APIXABAN 2.5 MG TABLET PO SCH ×2 (09:00→20:32)
[2023-02-25] MEDS: ASPIRIN EC 81 MG TAB PO SCH (09:06)
[2023-02-25] MEDS: METOPROLOL XL 25 MG TAB PO SCH (09:06)
[2023-02-25] MEDS: MULTIVITAMIN TAB PO SCH (09:07)
[2023-02-25] MEDS: DORZOLAMIDE HCL OPTH SCH ×2 (09:47→20:32)
[2023-02-25] MEDS: TIMOLOL OPTH SCH ×2 (09:47→20:32)
[2023-02-25] MEDS: HOME MED [LATANOPROST 0.005% 2.5ML OPTH] OPTH SCH ×2 (09:47→20:32)
--- NOTE | 2023-02-25 13:39 | P.RH.PN ---
Estimated Length of Stay: 13 Expected Discharge Date: 03/02/23 Discharge Disposition Plan: Home Family Support: Yes Snf Goal: Mobility, Transfers, Self Care Vital Signs: Last Vital Signs Temp 97.5 F 02/25/23 08:00 Pulse 76 02/25/23 09:06 Resp 14 02/25/23 08:00 BP 128/73 02/25/23 09:06 Pulse Ox 95 02/25/23 08:00 Laboratory: Laboratory Last Values WBC 6.10 thou/uL (4.3-10.9) 02/24/23 07:04 RBC 4.13 M/uL (4.33-5.43) L 02/24/23 07:04 Hgb 11.1 g/dL (13.6-17.9) L 02/24/23 07:04 Hct 33.6 % (39.6-49.0) L 02/24/23 07:04 MCV 81.3 fL (80-100) 02/24/23 07:04 MCH 26.9 pg (27.0-35.0) L 02/24/23 07:04 MCHC 33.1 g/dL (32.0-36.0) 02/24/23 07:04 RDW 16.4 % (12.1-15.2) H 02/24/23 07:04 Plt Count 148 thou/uL (152-406) L 02/24/23 07:04 MPV 8.2 fL (7.6-11.3) 02/24/23 07:04 Neutrophils % 55.8 % (41.7-73.7) 02/24/23 07:04 Lymphocytes % 25.5 % (15.3-44.8) 02/24/23 07:04 Monocytes % 11.4 % (3.3-12.3) 02/24/23 07:04 Eosinophils % 6.6 % (0-4.4) H 02/24/23 07:04 Basophils % 0.7 % (0-1.3) 02/24/23 07:04 Absolute Neutrophils 3.4 K/uL (1.8-8.0) 02/24/23 07:04 Absolute Lymphocytes 1.6 K/uL (0.7-4.9) 02/24/23 07:04 Absolute Monocytes 0.7 K/uL (0.1-1.3) 02/24/23 07:04 Absolute Eosinophils 0.4 K/uL (0-0.5) 02/24/23 07:04 Absolute Basophils 0.0 K/uL (0-0.5) 02/24/23 07:04 Sodium 143 mEq/L (136-145) 02/24/23 07:04 Potassium 4.0 mEq/L (3.5-5.1) 02/24/23 07:04 Chloride 114 mEq/L (98-107) H 02/24/23 07:04 Carbon Dioxide 24 mEq/L (21-32) 02/24/23 07:04 Anion Gap 9.0 mEq/L (5.0-15.0) 02/24/23 07:04 BUN 28 mg/dL (7-18) H 02/24/23 07:04 Creatinine 1.30 mg/dL (0.70-1.30) 02/24/23 07:04 Est GFR (CKD-EPI) 54 ml/min (=/>90) L 02/24/23 07:04 Glucose 100 mg/dL (74-106) 02/24/23 07:04 POC Glucose 141 mg/dL (65-120) H 02/25/23 11:41 Calcium 8.6 mg/dL (8.5-10.1) 02/24/23 07:04 Magnesium 2.0 mg/dL (1.6-2.4) 02/24/23 07:04 Albumin 2.8 g/dL (3.4-5.0) L 02/24/23 07:04 Prealbumin 16.2 mg/dL (20-40) L 02/24/23 07:04 Urine Color Yellow (Yellow) 02/20/23 14:25 Urine Clarity Extremely turbid (Clear) H 02/20/23 14:25 Urine pH 5.0 (5.0-7.0) 02/20/23 14:25 Ur Specific [place] 1.025 (1.005-1.030) 02/20/23 14:25 Glucose (UA)(Auto) Negative (Negative) 02/20/23 14:25 Urine Ketones Negative (Negative) 02/20/23 14:25 Urine Blood Negative (Negative) 02/20/23 14:25 Urine Nitrite Negative (Negative) 02/20/23 14:25 Urine Bilirubin Negative (Negative) 02/20/23 14:25 Urine Urobilinogen Normal (Normal) 02/20/23 14:25 Ur Leukocyte Esterase 25 Gauri/uL (Negative) H 02/20/23 14:25 Urine RBC 5-10 /HPF (None Seen) H 02/20/23 14:25 Urine WBC 5-10 /HPF (<5) 02/20/23 14:25 Ur Squamous Epith Cells <5 /HPF (None Seen) 02/20/23 14:25 Calcium Oxalate Crystal Few /HPF (None Seen) 02/20/23 14:25 Urine Bacteria <20 /HPF (<20) 02/20/23 14:25 Hyaline Casts 5-10 /LPF (None Seen) H 02/20/23 14:25 Urine Mucus 3+ /HPF (None Seen) H 02/20/23 14:25 Urine Culture Reflexed Not needed 02/20/23 14:25 Urine Total Protein 1+ (Negative) H 02/20/23 14:25 Weight: 196 lb Wound Present: No Closed Surgical Incision Present: No Negative Pressure Wound Therapy Present: No Physician Update: 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 His mood is improving. The patient and his have poor memory and will not be safe at home. BIMS 10, SLUMS 10. The patient and he will likely require a memory care unit on discharge. Met 4/5 short term goals. Walking 500' with RW and min assistance. Independent with grooming, CGA with transfers. Min assistance with dressing. Summary: Patient's care plan and chcf goals have been reviewed and revised as necessary. Please see the Rehabilitation Signature page for all necessary signatures.
[2023-02-25] MEDS ORDERED: BISACODYL 10 MG RECTAL SUPP PR ONE (14:56)
[2023-02-25] MEDS ORDERED: MELATONIN 3 MG TABLET PO PRN (16:14)
[2023-02-25] MEDS: CRANBERRY FRUIT EXTRACT 200 MG CAP PO SCH (20:32)
[2023-02-25] MEDS: ATORVASTATIN 20 MG TAB PO SCH (20:32)
[2023-02-25] MEDS: TEMAZEPAM 15 MG CAP PO PRN (20:32)
[2023-02-25] MEDS: TAMSULOSIN 0.4 MG SR CAP PO SCH (20:33)
[2023-02-25] MEDS: DULOXETINE 30 MG CAP PO SCH (20:33)
[2023-02-26 05:29] VITALS: BMI 28.6
[2023-02-26 06:04] LABS: Absolute Lymphocytes (CBC) 1.3 K/uL (0.7-4.9); Hematocrit 32.8 % (39.6-49.0); MCV 80.4 fL (80-100); MPV 8.6 fL (7.6-11.3); Platelets 135 thou/uL (152-406); RBC Red Blood Cell Count 4.08 M/uL (4.33-5.43)
[2023-02-26 06:17] LABS: Potassium 3.9 mEq/L (3.5-5.1)
[2023-02-26] MEDS: PANTOPRAZOLE 40MG TABLET PO SCH (06:53)
[2023-02-26] MEDS: INSULIN -REGULAR HUMAN 50 UNIT/0.5 ML ML SQ SCH ×4 (07:21→20:11)
[2023-02-26] MEDS ORDERED: NA CHLORIDE 0.9% 1,000 ML IV SCH (08:00)
[2023-02-26] MEDS: METOPROLOL XL 25 MG TAB PO SCH (08:18)
[2023-02-26] MEDS: DORZOLAMIDE HCL OPTH SCH ×2 (08:19→20:11)
[2023-02-26] MEDS: APIXABAN 2.5 MG TABLET PO SCH ×2 (08:19→20:10)
[2023-02-26] MEDS: TIMOLOL OPTH SCH ×2 (08:19→20:11)
[2023-02-26] MEDS: CRANBERRY FRUIT EXTRACT 200 MG CAP PO SCH ×2 (08:19→20:10)
[2023-02-26] MEDS: ASPIRIN EC 81 MG TAB PO SCH (08:19)
[2023-02-26] MEDS: MULTIVITAMIN TAB PO SCH (08:19)
[2023-02-26] MEDS: HOME MED [LATANOPROST 0.005% 2.5ML OPTH] OPTH SCH ×2 (08:20→20:11)
[2023-02-26] MEDS ORDERED: MAGNESIUM HYDROXIDE 8% 30 ML PO ONE (10:15)
[2023-02-26] MEDS: DOCUSATE NA/SENNA CONC 1 TAB PO SCH ×2 (10:56→20:10)
[2023-02-26] MEDS: FLEET ENEMA ADULT PR ONE (15:30)
[2023-02-26] MEDS ORDERED: BISACODYL 10 MG RECTAL SUPP PR ONE (15:45)
--- NOTE | 2023-02-26 20:08 | RAD REPORT ---
EXAM DESCRIPTION: RAD - Abdomen 1 View (KUB) - 02/26/2023 8:03 pm CLINICAL HISTORY: constipation Pain COMPARISON: No comparisons FINDINGS: The bowel gas pattern is non-obstructive. No evidence of free air or pneumatosis. No suspi cious calcifications. Moderate stool throughout the colon. Moderate dextroscoliosis. IMPRESSION: Moderate constipation.
[2023-02-26] MEDS: TEMAZEPAM 15 MG CAP PO PRN (20:10)
[2023-02-26] MEDS: ATORVASTATIN 20 MG TAB PO SCH (20:10)
[2023-02-26] MEDS: TAMSULOSIN 0.4 MG SR CAP PO SCH (20:10)
[2023-02-26] MEDS: DULOXETINE 30 MG CAP PO SCH (20:11)
[2023-02-27] MEDS: PANTOPRAZOLE 40MG TABLET PO SCH (06:50)
[2023-02-27] MEDS: INSULIN -REGULAR HUMAN 50 UNIT/0.5 ML ML SQ SCH ×4 (07:30→20:12)
[2023-02-27] MEDS: HOME MED [LATANOPROST 0.005% 2.5ML OPTH] OPTH SCH ×2 (07:48→20:11)
[2023-02-27] MEDS: DORZOLAMIDE HCL OPTH SCH ×2 (07:48→20:10)
[2023-02-27] MEDS: TIMOLOL OPTH SCH ×2 (07:48→20:10)
[2023-02-27] MEDS: CRANBERRY FRUIT EXTRACT 200 MG CAP PO SCH ×2 (07:49→20:10)
[2023-02-27] MEDS: DOCUSATE NA/SENNA CONC 1 TAB PO SCH ×2 (07:49→20:11)
[2023-02-27] MEDS: METOPROLOL XL 25 MG TAB PO SCH (07:49)
[2023-02-27] MEDS: MULTIVITAMIN TAB PO SCH (07:49)
[2023-02-27] MEDS: ASPIRIN EC 81 MG TAB PO SCH (07:50)
[2023-02-27] MEDS: APIXABAN 2.5 MG TABLET PO SCH ×2 (07:50→20:11)
[2023-02-27] MEDS: FLEET ENEMA ADULT PR ONE (10:40)
[2023-02-27] MEDS: TAMSULOSIN 0.4 MG SR CAP PO SCH (20:11)
[2023-02-27] MEDS: DULOXETINE 30 MG CAP PO SCH (20:11)
[2023-02-27] MEDS: ATORVASTATIN 20 MG TAB PO SCH (20:12)
[2023-02-28] MEDS: PANTOPRAZOLE 40MG TABLET PO SCH (06:34)
[2023-02-28] MEDS: INSULIN -REGULAR HUMAN 50 UNIT/0.5 ML ML SQ SCH ×4 (07:30→20:04)
[2023-02-28] MEDS: TIMOLOL OPTH SCH ×2 (07:57→20:02)
[2023-02-28] MEDS: DORZOLAMIDE HCL OPTH SCH ×2 (07:57→20:02)
[2023-02-28] MEDS: HOME MED [LATANOPROST 0.005% 2.5ML OPTH] OPTH SCH ×2 (07:57→20:02)
[2023-02-28] MEDS: APIXABAN 2.5 MG TABLET PO SCH ×2 (07:58→20:02)
[2023-02-28] MEDS: DOCUSATE NA/SENNA CONC 1 TAB PO SCH ×2 (07:58→20:04)
[2023-02-28] MEDS: CRANBERRY FRUIT EXTRACT 200 MG CAP PO SCH ×2 (07:58→20:02)
[2023-02-28] MEDS: ASPIRIN EC 81 MG TAB PO SCH (07:58)
[2023-02-28] MEDS: METOPROLOL XL 25 MG TAB PO SCH (07:58)
[2023-02-28] MEDS: MULTIVITAMIN TAB PO SCH (08:00)
[2023-02-28] MEDS: ATORVASTATIN 20 MG TAB PO SCH (20:02)
[2023-02-28] MEDS: TAMSULOSIN 0.4 MG SR CAP PO SCH (20:02)
[2023-02-28] MEDS: TEMAZEPAM 15 MG CAP PO PRN (20:02)
[2023-02-28] MEDS: DULOXETINE 30 MG CAP PO SCH (20:03)
--- NOTE | 2023-03-01 03:03 | PN ---
Date of Progress Note: 02/18/2023 Time Of Service: 1:10 p.m. Subjective: Mr. Taylor is resting in a chair beside the bed. Family is at the bedside, his and caregiver. He is happy about going home soon, and he is working hard to make great progress as he f eels he is doing much better. Review of Systems: He denies any fevers, chills, nausea, vomiting, myalgias, arthralgias. No rash, no headache, no weig ht change. No psychiatric issues. Physical Examination: Vital Signs: Blood pressure 135/69, pulse 86, respiratory rate 18, temperature 98.1, oxygen saturati on 94%. General: Ms. Taylor is sitting in a chair beside the bed as noted. He usually has his mouth half op en but wants to engage in conversation. He is able to speak clearly without any significant difficul ty. His cranial nerves showed no focal deficits. His stroke caused more incoordination of the arms and legs. I think his gait more than face show muscle movement. His upper and lower body strength i s diffusely weak but he has no focal findings. He does have dysmetria noted on [id number] and so me ataxia with his gait. Laboratory Studies: No new laboratory studies except blood glucose ranged from 112 to 134. X-ray And Imaging: A KUB done on 02/26/2023, to rule out bowel obstruction, identified an nonobstruc tive bowel gas pattern. No evidence of free air or pneumatosis. No suspicious calcifications. Impr ession was moderate constipation. Medications: He has received medications for DVT prophylaxis, including Eliquis 2.5 mg twice daily; aspirin 81 mg daily for stroke risk reduction; Lipitor for dyslipidemia; Cymbalta has been increased to 30 mg daily for his depression; Kaity for allergies; for insomnia; Toprol-XL for hear t rate and blood pressure control; Flomax for urinary retention; and Restoril for insomnia. Current Functional Status: Today, [id number] and pivot transfers done independently with a rolling walker at good technique. He ambulated 250 feet twice with standby assistance to independence with a rolling walker. He required standby assistance when negotiating 15 steps at a time. He is able to ascend and descend between 1 and 5 steps independently using a rolling walker. With his occupationa l therapy, contact guard with standby assistance for shower transfer and using a grab bar. Ambulated from room to toilet with contact guard with standby assistance with a rolling walker. The patient's and caregiver were educated on the use of the durable medical equipment that was provided, incl uding shower chair, shower transfer bench, and grab bars, all to help prevent fall risk, which is hig h given his cerebellar strokes. Progress Towards Rehabilitation Goals: Mr. Taylor is making excellent progress towards his goals and is mobilizing great distances for household considerations, which now are around 500 feet, going up and down multiple steps. He still has issues of incoordination and can lose balance when is distract ed. His and caregiver who are present did assist him. The patient's does have some issues with cognitive functioning and has had listed multiple family members to provide help as Mr. Taylor will likely himself require their 24-hour care and supervision for his safety awareness and to reduce his fall risk. Assessment: Mr. 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 He has dementia, diabetes mellitus, dyslipidemia, hypertension, and const ipation. Plan: 1.Continue with physical, occupational, and speech therapy for 3-1/2 hours, 5 of 7 days. 2.Will use stool softeners and laxatives for constipation. 3.Continue Protonix for GE reflux. 4.Continue Lipitor for dyslipidemia. 5.Continue Restoril for insomnia. 6.Continue Eliquis for DVT prophylaxis. Comorbids That Continue To Impact The Rehabilitation Process: Given his level of cognitive functioni ng and high risk of falls and recommended that the patient have options of a facility with a memory c are unit or at home with caregivers and the patient's family is opting for home with caregivers, and he will continue with his physical, occupational, and speech therapy via Home Health. He is up for d ischarge in 2 days. MARYJO/BRYAN Voice ID: [id number] Report ID: [id number]
[2023-03-01] MEDS: PANTOPRAZOLE 40MG TABLET PO SCH (06:25)
[2023-03-01] MEDS: INSULIN -REGULAR HUMAN 50 UNIT/0.5 ML ML SQ SCH ×4 (07:30→19:28)
[2023-03-01] MEDS: DORZOLAMIDE HCL OPTH SCH ×2 (07:31→19:10)
[2023-03-01] MEDS: TIMOLOL OPTH SCH ×2 (07:31→19:10)
[2023-03-01] MEDS: HOME MED [LATANOPROST 0.005% 2.5ML OPTH] OPTH SCH ×2 (07:31→19:10)
[2023-03-01] MEDS: APIXABAN 2.5 MG TABLET PO SCH ×2 (07:32→19:27)
[2023-03-01] MEDS: METOPROLOL XL 25 MG TAB PO SCH (07:32)
[2023-03-01] MEDS: DOCUSATE NA/SENNA CONC 1 TAB PO SCH ×2 (07:32→19:27)
[2023-03-01] MEDS: ASPIRIN EC 81 MG TAB PO SCH (07:33)
[2023-03-01] MEDS: MULTIVITAMIN TAB PO SCH (07:33)
[2023-03-01] MEDS: CRANBERRY FRUIT EXTRACT 200 MG CAP PO SCH ×2 (07:33→19:27)
[2023-03-01] MEDS: TAMSULOSIN 0.4 MG SR CAP PO SCH (19:27)
[2023-03-01] MEDS: DULOXETINE 30 MG CAP PO SCH (19:27)
[2023-03-01] MEDS: ATORVASTATIN 20 MG TAB PO SCH (19:27)
[2023-03-01] MEDS: TEMAZEPAM 15 MG CAP PO PRN (21:02)
[2023-03-02 06:33] VITALS: BP 119/65; TEMP 97.7
[2023-03-02] MEDS: PANTOPRAZOLE 40MG TABLET PO SCH (06:50)
[2023-03-02] MEDS: DORZOLAMIDE HCL OPTH SCH (07:14)
[2023-03-02] MEDS: HOME MED [LATANOPROST 0.005% 2.5ML OPTH] OPTH SCH (07:14)
[2023-03-02] MEDS: METOPROLOL XL 25 MG TAB PO SCH (07:14)
[2023-03-02] MEDS: DOCUSATE NA/SENNA CONC 1 TAB PO SCH (07:14)
[2023-03-02] MEDS: TIMOLOL OPTH SCH (07:14)
[2023-03-02] MEDS: APIXABAN 2.5 MG TABLET PO SCH (07:15)
[2023-03-02] MEDS: ASPIRIN EC 81 MG TAB PO SCH (07:15)
[2023-03-02] MEDS: MULTIVITAMIN TAB PO SCH (07:15)
[2023-03-02] MEDS: CRANBERRY FRUIT EXTRACT 200 MG CAP PO SCH (07:15)
[2023-03-02] MEDS: INSULIN -REGULAR HUMAN 50 UNIT/0.5 ML ML SQ SCH (07:30)
== END 2023-03-02 09:50 | disposition home health service (06) | DRG 57 ==
LOC: UNDOADMIN 18:28 → 5TH 18:28 → UNDOADMIN 19:25
PROVIDERS: ADMIT Psychiatry & Neurology Neurology with Special Qualifications in Child Neurology; ATTEND Psychiatry & Neurology Neurology with Special Qualifications in Child Neurology
DX: I69.398 Other sequelae of cerebral infarction (principal); G93.40 Encephalopathy, unspecified; I69.393 Ataxia following cerebral infarction; R53.1 Weakness; I50.9 Heart failure, unspecified; E11.9 Type 2 diabetes mellitus without complications; E78.5 Hyperlipidemia, unspecified; I11.0 Hypertensive heart disease with heart failure; R42 Dizziness and giddiness; F32.A Depression, unspecified; Z85.038 Personal history of other malignant neoplasm of large intestine
CPT/HCPCS: 36415; 74018; 80048; 81001; 82040; 82947; 83735; 84134; 85025; 87086; 87088; 92523; 92526; 97032; 97110; 97112; 97116; 97129; 97163; 97165; 97530; 97542; J7030

== ENCOUNTER 2023-03-29 18:28 | Emergency (ER) | payer OTHER ==
--- OUTSIDE RECORDS SUMMARY | 2023-03-29 18:31 | XMS REPORT | Continuity of Care Document ---
:1940 Author Organization [facility] t Address [address] [place] [id number] Care Team Providers Name Role Phone Unavailable Unavailable Unavailable Payers Payer Name Policy Type Policy Number Effective Date Expiration Date S izabel [employer] PPO [id number] 2021 00:00:00 Problems This patient has no known problems. Allergies, Adverse Reactions, Alerts This patient has no known allergies or adverse reactions. Medications This patient has no known medications. Procedures This patient has no known procedures. Encounters Start End Encounter Admission Attending Care Care Encounter Source Date/Time Date/Time Type Type Clinicians Facility Department ID 2022-08-24 Outpatient [facility] [id number] [place] 10:43:54 [id number] Health Results This patient has no known results.
[2023-03-29 20:12] LABS: Absolute Lymphocytes (CBC) 1.6 K/uL (0.7-4.9); Hematocrit 35.5 % (39.6-49.0); Lymphocytes % 23.6 % (15.3-44.8); MCV 81.7 fL (80-100); MPV 8.2 fL (7.6-11.3); Platelets 120 thou/uL (152-406); RBC Red Blood Cell Count 4.35 M/uL (4.33-5.43)
--- NOTE | 2023-03-29 20:27 | RAD REPORT ---
EXAM DESCRIPTION: RAD - Chest Single View - 03/29/2023 8:11 pm CLINICAL HISTORY: COUGH Chest pain. COMPARISON: Abdomen 1 View (KUB) dated 02/26/2023; Chest Single View dated 02/17/2023; Chest Single Vi ew dated 02/09/2023; Chest Pa And Lat (2 Views) dated 07/02/2016 FINDINGS: Portable technique limits examination quality. Mild interstitial pulmonary edema. The heart is mildly enlarged size. No displaced fractures. IMPRESSION: Mild CHF.
[2023-03-29 20:30] LABS: Albumin 3.4 g/dL (3.4-5.0); Bilirubin Direct 0.2 mg/dL (0-0.2); Bilirubin Indirect, Calculated 0.3 mg/dL (0.2-0.8); Bilirubin Total 0.5 mg/dL (0.2-1.0); Potassium 4.5 mEq/L (3.5-5.1); Protein, Total 7.2 g/dL (6.4-8.2)
--- NOTE | 2023-03-29 20:49 | EDPHYS ---
Physician Documentation [facility] Name: Emery Taylor Age: 82 yrs Sex: Male : 1940 Arrival Date: 03/29/2023 Time: 18:28 Bed 6 Private MD: ED Physician Vivian Ram HPI: 03/29 20:18 This 82 yrs old Male presents to ER via Wheelchair with complaints of Patient has no sp3 complaints other than chills earlier. Currently none.. 20:20 82-year-old male with history of diabetes, hypertension, hyperlipidemia, prior distant sp3 colon cancer now presents to the ED with chief complaint of simply not having a chief complaint. Patient nor can answer why they decided to come to the emergency department. Patient states that he had some chills earlier which have not resolved. He denies any fever or any current pain. On direct questioning he denies headache, neck pain, chest pain, shortness of breath, back pain, abdominal pain, nausea, vomiting, diarrhea, rash, known sick contacts, travel history, or any other signs or symptoms on ROS at this time. Patient does not appear to be the best historian however these are his current answers. who is also answering for him also cannot state why they decided to bring him in. She states that he was "sitting at the desk not really moving and then he started to move". Patient had extensive work-up [address] scan of the head with angiograms. They were negative at that time. Currently patient is resting with normal vital signs and absolutely no complaints.. Historical: - Allergies: 19:14 Codeine; cm10 19:14 Goldsmith (Cucumis Sativus); cm10 - PMHx: 19:14 COLON CA; diabetes mellitus; Hypercholesterolemia; cm10 - PSHx: 19:14 colon CA SX; cm10 - Immunization history:: Adult Immunizations unknown. - Social history:: Smoking status: Patient denies any tobacco usage or history of. ROS: 20:21 Eyes: Negative for injury, pain, redness, and discharge, ENT: Negative for injury, sp3 pain, and discharge, Neck: Negative for injury, pain, and swelling, Cardiovascular: Negative for chest pain, palpitations, and edema, Respiratory: Negative for shortness of breath, cough, wheezing, and pleuritic chest pain, Abdomen/GI: Negative for abdominal pain, nausea, vomiting, diarrhea, and constipation, Back: Negative for injury and pain, MS/Extremity: Negative for injury and deformity, Skin: Negative for injury, rash, and discoloration, Neuro: Negative for headache, weakness, numbness, tingling, and seizure, Psych: Negative for depression, anxiety, suicide ideation, homicidal ideation, and hallucinations, Allergy/Immunology: Negative for hives, rash, and allergies, Endocrine: Negative for neck swelling, polydipsia, polyuria, polyphagia, and marked weight changes, Hematologic/Lymphatic: Negative for swollen nodes, abnormal bleeding, and unusual bruising. 20:21 All other systems are negative. Exam: 20:22 Constitutional: This is a well developed, well nourished patient who is awake, alert, sp3 and in no acute distress. Head/Face: Normocephalic, atraumatic. Eyes: Pupils equal round and reactive to light, extra-ocular motions intact. Lids and lashes normal. Conjunctiva and sclera are non-icteric and not injected. Cornea within normal limits. Periorbital areas with no swelling, redness, or edema. ENT: Nares patent. No nasal discharge, no septal abnormalities noted. External auditory canals are clear. Oropharynx with no redness, swelling, or masses, exudates, or evidence of obstruction, uvula midline. Mucous membranes moist. Neck: Trachea midline, no thyromegaly or masses palpated, and no cervical lymphadenopathy. Supple, full range of motion without nuchal rigidity, or vertebral point tenderness. No Meningismus. Chest/axilla: Normal chest wall appearance and motion. Nontender with no deformity. No lesions are appreciated. Cardiovascular: Regular rate and rhythm with a normal S1 and S2. No gallops, murmurs, or rubs. Normal PMI, no JVD. No pulse deficits. Respiratory: Lungs have equal breath sounds bilaterally, clear to auscultation and percussion. No rales, rhonchi or wheezes noted. No increased work of breathing, no retractions or nasal flaring. Abdomen/GI: Soft, non-tender, with normal bowel sounds. No distension or tympany. No guarding or rebound. No evidence of tenderness throughout. Back: No spinal tenderness. No costovertebral tenderness. Full range of motion. Skin: Warm, dry with normal turgor. Normal color with no rashes, no lesions, and no evidence of cellulitis. MS/ Extremity: Pulses equal, no cyanosis. Neurovascular intact. Full, normal range of motion. Psych: Awake, alert, with orientation to person, place and time. Behavior, mood, and affect are within normal limits. 20:22 Neuro: Patient has no focal deficits on exam. His memory is not the best however he does not appear to have any cranial nerve deficits, motor dysfunction, sensory dysfunction or dysarthria.. Vital Signs: 19:13 BP 142 / 80; Pulse 62; Resp 16; Temp 98.2; Pulse Ox 99% ; Pain 0/10; cm10 20:00 BP 138 / 68; Pulse 62; Resp 17 S; Pulse Ox 100% on R/A; jw7 20:15 BP 137 / 73; Pulse 62; Resp 16 S; Pulse Ox 100% on R/A; jw7 19:13 Pain Scale: Adult cm10 MDM: 19:22 Patient medically screened. sp3 20:23 Data reviewed: vital signs, nurses notes, lab test result(s), EKG, radiologic studies. sp3 ED course: 82-year-old male with past history above now presents with resolved chills. No other historical features can be obtained at this time. Given the risk of noncommunication due to dementia type symptoms, we will still obtain a full work-up consisting of EKG, chest x-ray, laboratory values and infectious swabs for influenza and COVID. Work-up is negative and patient remains asymptomatic with normal vital signs, we will safely discharge him home to PCP follow-up. His EKG demonstrates no significant findings other than right bundle branch block with no ST/T material changes. Chest x-ray demonstrates no significant focal findings on his lungs and no widened mediastinum and possible cardiomegaly though this is an AP view. Laboratory values and swabs are pending.. 20:47 ED course: All swabs, laboratory values are within normal limits. We will safely sp3 discharge patient home at this time.. 03/29 19:16 Order name: Basic Metabolic Panel; Complete Time: 20:32 sp3 03/29 19:16 Order name: CBC with Diff; Complete Time: 20:25 sp3 03/29 19:16 Order name: LFT's; Complete Time: 20:32 sp3 03/29 19:16 Order name: Troponin HS; Complete Time: 20:32 sp3 03/29 19:16 Order name: SARS-COV-2 RT PCR; Complete Time: 20:47 sp3 03/29 19:16 Order name: Flu; Complete Time: 20:39 sp3 03/29 19:16 Order name: XRAY Chest (1 view); Complete Time: 20:32 sp3 03/29 19:16 Order name: EKG; Complete Time: 19:18 sp3 03/29 19:16 Order name: EKG - Nurse/Tech; Complete Time: 20:10 sp3 03/29 19:16 Order name: IV Saline Lock; Complete Time: 20:10 sp3 03/29 19:16 Order name: Labs collected and sent; Complete Time: 20:10 sp3 Administered Medications: No medications were administered Disposition Summary: 03/29/23 20:48 Discharge Ordered Location: Home sp3 Condition: Stable sp3 Diagnosis - Viral illness sp3 Followup: sp3 - With: Private Physician - When: Upon discharge from the Emergency Department - Reason: Continuance of care Discharge Instructions: - Discharge Summary Sheet sp3 - Viral Illness, Adult sp3 Forms: - Medication Reconciliation Form sp3 - Thank You Letter sp3 - Antibiotic Education sp3 - Prescription Opioid Use sp3 - Patient Portal Instructions sp3 - Leadership Thank You Letter sp3 Signatures: Dispatcher [employer] EDMS Vivian Ram MD MD sp3 Patsy Richards RN RN cm10 Corrections: (The following items were deleted from the chart) 20:25 20:22 Constitutional: This is a well developed, well nourished patient who is awake, sp3 alert, and in no acute distress. Head/Face: Normocephalic, atraumatic. Eyes: Pupils equal round and reactive to light, extra-ocular motions intact. Lids and lashes normal. Conjunctiva and sclera are non-icteric and not injected. Cornea within normal limits. Periorbital areas with no swelling, redness, or edema. ENT: Nares patent. No nasal discharge, no septal abnormalities noted. External auditory canals are clear. Oropharynx with no redness, swelling, or masses, exudates, or evidence of obstruction, uvula midline. Mucous membranes moist. Neck: Trachea midline, no thyromegaly or masses palpated, and no cervical lymphadenopathy. Supple, full range of motion without nuchal rigidity, or vertebral point tenderness. No Meningismus. Chest/axilla: Normal chest wall appearance and motion. Nontender with no deformity. No lesions are appreciated. Cardiovascular: Regular rate and rhythm with a normal S1 and S2. No gallops, murmurs, or rubs. Normal PMI, no JVD. No pulse deficits. Respiratory: Lungs have equal breath sounds bilaterally, clear to auscultation and percussion. No rales, rhonchi or wheezes noted. No increased work of breathing, no retractions or nasal flaring. Abdomen/GI: Soft, non-tender, with normal bowel sounds. No distension or tympany. No guarding or rebound. No evidence of tenderness throughout. Back: No spinal tenderness. No costovertebral tenderness. Full range of motion. Skin: Warm, dry with normal turgor. Normal color with no rashes, no lesions, and no evidence of cellulitis. MS/ Extremity: Pulses equal, no cyanosis. Neurovascular intact. Full, normal range of motion. Psych: Awake, alert, with orientation to person, place and time. Behavior, mood, and affect are within normal limits. sp3
--- NOTE | 2023-03-29 20:49 | ER ---
Nurse's Notes [facility] Name: Emery Taylor Age: 82 yrs Sex: Male : 1940 Arrival Date: 03/29/2023 Time: 18:28 Bed 6 Private MD: Diagnosis: Viral illness Presentation: 03/29 19:13 Chief complaint: Spouse and/or significant other states: 'WE DON'T KNOW WHAT HE HAS BUT cm10 WE HAD TO CALL THE AMBULANCE." PT DENIES ANY COMPLAINTS AT THIS TIME. EMS states: THEY WERE CALLED TO PATIENT'S HOME FOR CHILLS. Coronavirus screen: Vaccine status: Patient reports receiving the 2nd dose of the covid vaccine. Client denies travel out of the [place] in the last 14 days. Ebola Screen: Patient denies travel to an Ebola-affected area in the 21 days before illness onset. No symptoms or risks identified at this time. Initial Sepsis Screen: Does the patient meet any 2 criteria? No. Patient's initial sepsis screen is negative. Does the patient have a suspected source of infection? No. Patient's initial sepsis screen is negative. Risk Assessment: Do you want to hurt yourself or someone else? Patient reports no desire to harm self or others. Onset of symptoms was March 29, 2023. 19:13 Method Of Arrival: Wheelchair cm10 19:13 Acuity: TARSHA 3 cm10 Triage Assessment: 20:17 General: Appears in no apparent distress. uncomfortable, Behavior is calm, cooperative, jw7 drowsy, quiet. Pain: Denies pain. EENT: No deficits noted. No signs and/or symptoms were reported regarding the EENT system. Neuro: No deficits noted. Gonzalez Agitation-Sedation Scale (RASS): 0 - Alert and Calm Level of Consciousness is awake, obeys commands, lethargic. Cardiovascular: No deficits noted. Capillary refill < 3 seconds Clubbing of nail beds is absent JVD is absent Patient's skin is warm and dry. Respiratory: No deficits noted. Airway is patent Trachea midline Respiratory effort is even, unlabored, Respiratory pattern is regular, symmetrical. GI: No deficits noted. No signs and/or symptoms were reported involving the gastrointestinal system. Abdomen is flat, non-distended. : No deficits noted. No signs and/or symptoms were reported regarding the genitourinary system. Derm: No deficits noted. No signs and/or symptoms reported regarding the dermatologic system. Skin is intact, is healthy with good turgor, is fragile, Skin is dry, Skin is normal, Skin temperature is warm. Musculoskeletal: No deficits noted. No signs and/or symptoms reported regarding the musculoskeletal system. Circulation, motion, and sensation intact. Capillary refill < 3 seconds, Range of motion: intact in all extremities. Historical: - Allergies: 19:14 Codeine; cm10 19:14 [place] (Cucumis Sativus); cm10 - PMHx: 19:14 COLON CA; diabetes mellitus; Hypercholesterolemia; cm10 - PSHx: 19:14 colon CA SX; cm10 - Immunization history:: Adult Immunizations unknown. - Social history:: Smoking status: Patient denies any tobacco usage or history of. Screenin:17 [facility] ED Fall Risk Assessment (Adult) History of falling in the last 3 months, jw7 including since admission No falls in past 3 months (0 pts) Score/Fall Risk Level 0 - 2 = Low Risk. Abuse screen: Denies threats or abuse. Denies injuries from another. Nutritional screening: No deficits noted. Tuberculosis screening: No symptoms or risk factors identified. Assessment: 19:20 General: see triage assessment. jw7 20:00 Reassessment: Patient appears in no apparent distress at this time. No changes from jw7 previously documented assessment. Patient and/or family updated on plan of care and expected duration. Pain level reassessed. Patient is alert, oriented x 3, equal unlabored respirations, skin warm/dry/pink. 21:16 Reassessment: Patient appears in no apparent distress at this time. No changes from jw7 previously documented assessment. Patient and/or family updated on plan of care and expected duration. Pain level reassessed. Patient is alert, oriented x 3, equal unlabored respirations, skin warm/dry/pink. Vital Signs: 19:13 BP 142 / 80; Pulse 62; Resp 16; Temp 98.2; Pulse Ox 99% ; Pain 0/10; cm10 20:00 BP 138 / 68; Pulse 62; Resp 17 S; Pulse Ox 100% on R/A; jw7 20:15 BP 137 / 73; Pulse 62; Resp 16 S; Pulse Ox 100% on R/A; jw7 19:13 Pain Scale: Adult cm10 ED Course: 18:48 Patient arrived in ED. iw 18:54 Vivian Ram MD is Attending Physician. sp3 19:14 Triage completed. cm10 19:15 Arm band placed on Patient placed in waiting room. cm10 19:20 Patient has correct armband on for positive identification. Bed in low position. Call jw7 light in reach. Side rails up X2. Provided Education on: discharge instructions. 19:44 Nikki Escobedo, RN is Primary Nurse. jw7 19:56 Radiology exam delayed due to having blood work done. az 20:08 Initial lab(s) drawn, by me, sent to lab. COVID swab sent to lab. Flu and/or RSV swab jw7 sent to lab. Inserted saline lock: 20 gauge in left antecubital area, using aseptic technique. Blood collected. 20:13 XRAY Chest (1 view) In Process Unspecified. EDMS 20:16 EKG done, by ED staff, reviewed by Vivian Ram MD. jw7 21:15 No provider procedures requiring assistance completed. IV discontinued, intact, jw7 bleeding controlled, No redness/swelling at site. Pressure dressing applied. Administered Medications: No medications were administered Medication: 21:15 VIS not applicable for this client. jw7 Outcome: 20:48 Discharge ordered by . sp3 21:15 Discharged to home via wheelchair, with family. jw7 21:15 Condition: stable 21:15 Discharge instructions given to patient, family, Instructed on discharge instructions, follow up and referral plans. Demonstrated understanding of instructions, follow-up care. 21:17 Patient left the ED. jw7 Signatures: Dispatcher [employer] EDLA Cassandra Cody, KHUSHBOO RN Anna Marie Leal ri Vivian Ram MD MD sp3 Nikki Escobedo RN RN jwPatsy Gould RN RN cm10 Corrections: (The following items were deleted from the chart) 19:14 19:13 Chief complaint: Spouse and/or significant other states: 'WE DON'T KNOW WHAT HE cm10 HAS BUT WE HAD TO CALL THE AMBULANCE." EMS states: THEY WERE CALLED TO PATIENT'S HOME FOR CHILLS cm10
[2023-03-29 22:32] VITALS: O2SAT 100
[2023-03-29 22:52] VITALS: BP 137/73
--- NOTE | 2023-03-30 13:04 | EKG ---
Test Date: 2023-03-29 Test Time: 20:12:49 Lead Refinery Supervisor: OLIVA MEASUREMENT RESULTS: Intervals: Rate: 61 MA: 182 QRSD: 136 QT: 450 QTc: 453 Swengel: P: 65 MA: 182 QRS: 7 T: 28 INTERPRETIVE STATEMENTS: Normal sinus rhythm with sinus arrhythmia Right bundle branch block Abnormal ECG Compared to ECG 02/18/2023 16:59:47 Sinus bradycardia no longer present Electronically Signed On 03-30-23 13:03:07 CDT by Silas Alejandro
== END 2023-03-29 21:17 | disposition home or self-care (01) ==
LOC: ER 18:28
DX: B34.9 Viral infection, unspecified (principal); Z20.822 Contact with and (suspected) exposure to COVID-19; Z88.5 Allergy status to narcotic agent; Z91.018 Allergy to other foods; Z85.038 Personal history of other malignant neoplasm of large intestine
CPT/HCPCS: 36415; 71045; 80048; 80076; 84484; 85025; 87635; 87804; 93005

== ENCOUNTER 2024-10-11 12:34 | Inpatient (IN) | payer OTHER ==
--- OUTSIDE RECORDS SUMMARY | 2024-10-11 12:37 | XMS REPORT | Continuity of Care Document ---
Author Name Unknown Address [address] [place] [address] [address] [place] [address] [facility] Address [address] [facility]. [address] [place] [address] Care Team Providers Care Paper Folding Machine Operator Name Role Phone Unavailable Unavailable Unavailable Payers Payer Name Policy Type Policy Number Effective Date Expirati on Date Source [employer] MED[employer]ARE PPO [id number] 1 00:00:00 Encounters Start Date/Time End Date/Time Encounter Type Admission Type Attending [facility] Care Facility Care Department Encounter ID Source 2022-08-24 10:43:54 Outpatient [facility] [id number] [facility]
--- NOTE | 2024-10-11 12:53 | RAD REPORT ---
EXAM: CT Ct Stroke Brain Wo Cont HISTORY: STROKE ALERT COMPARISON: 02/12/2023 TECHNIQUE: Multiple contiguous axial images were obtained for a CT of the brain without contrast. Sag ittal and coronal reformats were performed. One or more of the following dose reduction techniques were used: Automated exposure control, adjus tment of the mA and kV according to patient size, and iterative reconstruction. Unless otherwise specified, incidental findings do not require dedicated imaging follow-up. FINDINGS: No evidence of hydrocephalus, intracranial hemorrhage, or extra-axial fluid collection. Stable right frontal basal and right cerebellar hemisphere patchy cephalomalacia, suggesting sequelae of remote ischemia. Mild diffuse brain atrophy. Stable burden of advanced periventricular and deep white matter hypodensities, nonspecific but suggestive of chronic microvascular ischemic changes. The calvarium is intact. The visualized paranasal sinuses and mastoid air cells are essentially clear . IMPRESSION: No evidence of acute intracranial abnormality. Stable chronic findings as above. THIS REPORT CONTAINS FINDINGS THAT MAY BE CRITICAL TO PATIENT CARE. The findings were verbally commun icated via telephone to Kobe Guzmán on 10/11/2024 12:50 PM.
[2024-10-11 13:04] LABS: Absolute Basophils 0.1 K/uL (0-0.5); Absolute Eosinophils 0.2 K/uL (0-0.5); Absolute Lymphocytes (CBC) 1.4 K/uL (0.7-4.9); Absolute Monocytes 0.6 K/uL (0.1-1.3); Absolute Neutrophil 4.8 K/uL (1.8-8.0); Basophils % 0.7 % (0-1.3); Eosinophils % 2.6 % (0-4.4); Hematocrit 37.4 % (39.6-49.0); Hemoglobin 12.5 g/dL (13.6-17.9); Lymphocytes % 20.4 % (15.3-44.8); MCH 28.2 pg (27.0-35.0); MCHC 33.5 g/dL (32.0-36.0); MPV 9.3 fL (7.6-11.3); Monocytes % 7.8 % (3.3-12.3); Neutrophils % 68.5 % (41.7-73.7); Platelets 122 thou/uL (152-406); RBC Red Blood Cell Count 4.45 M/uL (4.33-5.43); Red Cell Distribution Width 15.8 % (12.1-15.2)
--- NOTE | 2024-10-11 13:21 | RAD REPORT ---
EXAMINATION: CTA HEAD CLINICAL INDICATION: APHASIA TECHNIQUE: Axial CT images were obtained through the head after intravenous contrast utilizing angiog raphic protocol with 3D post-processing (maximum intensity projection images, volume rendered images and/or shaded surface rendered images). One or more of the following dose reduction technique s were used: Automated exposure control, adjustment of the mA and/or kV according to patient size, and/or iterative reconstruction. Unless otherwise specified, incidental findings do not require dedic ated imaging follow-up. COMPARISON: No prior exam. FINDINGS: ICA: The petrous, cavernous, and supraclinoid segments of the bilateral internal carotid arteries are normal. The ophthalmic artery origins are visualized and normal. The posterior communicating arteries are patent. ANDREA: Anterior cerebral arteries are normal bilaterally. The anterior communicating artery is patent. MCA: Middle cerebral arteries are normal bilaterally. MEDICAL TECHNOLOGIST HEMATOLOGY: Posterior cerebral arteries are normal bilaterally. Vertebrobasilar: The vertebral arteries are patent. The basilar artery is normal in appearance. 3D images confirm these findings. IMPRESSION: No significant flow abnormality is identified.
--- NOTE | 2024-10-11 13:23 | RAD REPORT ---
EXAMINATION: CTA NECK CLINICAL INDICATION: aphasia TECHNIQUE: Axial CT images were obtained from the aortic arch to the skull base after intravenous con trast utilizing angiographic protocol with 3D post-processing (maximum intensity projection images, volume rendered images and/or shaded surface rendered images). One or more of the following dose redu ction techniques were used: Automated exposure control, adjustment of the mA and/or kV according to patient size, and/or iterative reconstruction. Unless otherwise specified, incidental findings do not require dedicated imaging follow-up. COMPARISON: No prior exam. FINDINGS: AORTA: The imaged aortic arch is normal. CCA: The common carotid arteries are patent and normal in caliber. ICA/ECA: Bilateral internal and external carotid arteries are patent. There is no significant interna l carotid artery stenosis. VERTEBRAL: The cervical vertebral arteries are patent. Right vertebral artery is dominant. SOFT TISSUE: No significant neck soft tissue abnormalities. The visualized lung apices are clear. 3D images confirm these findings. IMPRESSION: No significant flow abnormality of the neck vessels is identified. NASCET criteria used. Mild 0-49% stenosis Moderate 50-69% stenosis Severe 70-99% stenosis
[2024-10-11 13:55] LABS: Specific Gravity > 1.030 (1.005-1.030); Sqamous Epithelial None Seen /HPF (None Seen); Urine Bacteria None Seen /HPF (<20); Urine Bilirubin NEGATIVE (Negative); Urine Blood Trace (Negative); Urine Clarity Clear (Clear); Urine Color Light-Yellow (Yellow); Urine Culture Reflex Order NOT NEEDED; Urine Glucose NEGATIVE (Negative); Urine Ketones NEGATIVE (Negative); Urine Micro Reflex YN NO BILL MICROSCOPIC; Urine Mucus Slight /HPF (None Seen); Urine Nitrite NEGATIVE (Negative); Urine Protein NEGATIVE (Negative); Urine RBC 21-50 /HPF (None Seen); Urine Urobilinogen Normal (Normal); Urine WBC <5 /HPF (<5); Urine pH 5.5 (5.0-7.0)
[2024-10-11 14:24] LABS: PT Prothrombin Time 12.7 SECONDS (10-13.0); PTT, Activated Partial Thromb 28.4 SECONDS (27.2-37.4); Protime INR 1.12
[2024-10-11 14:29] LABS: Albumin 2.9 g/dL (3.4-5.0); Albumin/Globulin Ratio 0.9 (1.1-1.8); Anion Gap 6.4 mEq/L (5.0-15.0); Bilirubin Direct 0.2 mg/dL (0-0.2); Bilirubin Indirect, Calculated 0.2 mg/dL (0.2-0.8); Bilirubin Total 0.4 mg/dL (0.2-1.0); Globulin 3.4 g/dL (2.3-3.5); Potassium 4.4 mEq/L (3.5-5.1); Protein, Total 6.3 g/dL (6.4-8.2); Troponin High Sensitivity 25.4 pg/mL (<58.9)
--- NOTE | 2024-10-11 14:46 | RAD REPORT ---
EXAMINATION: ONE VIEW CHEST XR CLINICAL INDICATION: stroke w/u TECHNIQUE: Frontal chest projection is submitted. Examination is limited by patient positioning and t echnique. COMPARISON: 12/26/2023 FINDINGS: Mild interstitial pulmonary edema suspected with trace pleural effusions. Heart is upper limit of nor mal in size. No displaced fractures identified.
--- NOTE | 2024-10-11 15:24 | ER ---
Nurse's Notes [facility] Name: Emery Taylor Age: 83 yrs Sex: Male : 1940 Arrival Date: 10/11/2024 Time: 12:34 Bed 14 Private MD: Diagnosis: Confusion, aphasia Presentation: 10/11 12:36 Chief complaint: Spouse and/or significant other states: PATIENT BROUGHT TO ER FOR db SUDDEN SLURRED SPEECH AND WEAKNESS. STATES AT 1130 PATIENT WAS EATING AND DRINKING NORMALLY. THEN APPROXIMATELY 20 MIN PRIOR TO 1225 PATIENT SUDDENLY HAD SLURRED SPEECH AND DIFFICULTY SPEAKING. FAMILY BROUGHT PT TO DIAGNOSTIC ENTRANCE AND A RAPID RESPONSE WAS CALLED AT 1225. PT WAS BROUGHT TO CT THEN TO ER. Coronavirus screen: Client denies travel out of the [place] in the last 14 days. At this time, the client does not indicate any symptoms associated with coronavirus-19. Ebola Screen: Patient negative for fever greater than or equal to 101.5 degrees Fahrenheit, and additional compatible Ebola Virus Disease symptoms Patient denies exposure to infectious person. Patient denies travel to an Ebola-affected area in the 21 days before illness onset. No symptoms or risks identified at this time. Note RAPID RESPONSE CALLED. 12:36 Method Of Arrival: Wheelchair db 12:50 An acute neurological deficit is present. The charge nurse has been notified. The db patient has been moved to a treatment area. Pre-hospital glucose is not applicable to this patient. Initial Sepsis Screen: Does the patient meet any 2 criteria? No. Patient's initial sepsis screen is negative. Does the patient have a suspected source of infection? No. Patient's initial sepsis screen is negative. Risk Assessment: Do you want to hurt yourself or someone else? Patient reports no desire to harm self or others. Onset of symptoms was October 11, 2024 at 12:00. 12:50 Acuity: TARSHA 2 db Triage Assessment: 12:55 The onset of the patients symptoms was October 11, 2024 at 12:00. General: Appears in no db apparent distress. Behavior is CONFUSED. Pain: Unable to use pain scale. Neuro: Reports weakness. Neuro: Neuro: Level of Consciousness is obeys commands, confused, Oriented to person. Respiratory: Airway is patent Respiratory effort is even, unlabored, Respiratory pattern is regular, symmetrical. Stroke Activation: Symptom onset < 3 hours Physician: ED Attending; Name: ; Notified At: ; Arrived At: Physician: Mid-Level Provider; Name: ; Notified At: ; Arrived At: Physician: [not used]; Name: ; Notified At: ; Arrived At: Physician: [not used]; Name: ; Notified At: ; Arrived At: Physician: [not used]; Name: ; Notified At: ; Arrived At: Historical: - Allergies: 12:50 Codeine; db 12:50 [place] (Cucumis Sativus); db - Home Meds: 13:24 Eliquis oral [Active]; db - PMHx: 12:50 CVA (colon CA SX); COLON CA; diabetes mellitus; Hypercholesterolemia; db Hypercholesterolemia; - PSHx: 12:50 colon CA SX; db - Immunization history:: Adult Immunizations unknown. - Infectious Disease History:: Denies. - Social history:: Smoking status: Patient denies any tobacco usage or history of. Screenin:00 [facility] ED Fall Risk Assessment (Adult) History of falling in the last 3 months, db including since admission No falls in past 3 months (0 pts) Confusion or Disorientation No (0 pts) Intoxicated or Sedated No (0 pts) Impaired Gait Yes (1 pt) Mobility Assist Device Used No (0 pt) Altered Elimination Yes (1 pt) Score/Fall Risk Level 3 or more points = High Risk Oriented to surroundings, Maintained a safe environment, Educated pt \T\ family on fall prevention, incl call for assistance when getting out of bed, Hourly rounding (assess needs \T\ fall precautionary measures) done. Abuse screen: Denies threats or abuse. Denies injuries from another. Nutritional screening: No deficits noted. Tuberculosis screening: No symptoms or risk factors identified. Assessment: 12:55 [place] Swallow Protocol Exclusion Criteria: Unable to remain alert for testing: Yes Brief db Cognitive Screen What is your name? Normal, Where are you right now? Abnormal What year is it? Abnormal. TNKase (Tenecteplase) Screening: Contraindications: Is the patient on Aspirin, Heparin, or Warfarin: Yes. 12:55 Reassessment: SEE CODE STROKE CHECKLIST AND PAPER DOCUMENTATION. db 15:00 Reassessment: Patient appears in no apparent distress at this time. Patient and/or db family updated on plan of care and expected duration. Pain level reassessed. General: Appears in no apparent distress. uncomfortable, Behavior is cooperative. Neuro: Level of Consciousness is awake, alert, obeys commands, Oriented to person. 15:55 Reassessment: Patient appears in no apparent distress at this time. Patient and/or db family updated on plan of care and expected duration. Pain level reassessed. 17:08 [place] Swallow Protocol 3 oz Water Swallow Challenge: Pt able to drink all water without db stopping, coughing, choking or throat clearing: Yes Result: PASS. 17:08 Reassessment: DESHAUN TAYLOR, , , CELL. db Vital Signs: 12:53 BP 120 / 68; Pulse 84; Resp 18; Temp 97.9(O); Pulse Ox 99% on R/A; Weight 85.28 kg (M); db Height 5 ft. 9 in. ; 13:00 BP 120 / 68; Pulse 85; Resp 18; Pulse Ox 98% on R/A; db 13:15 BP 118 / 65; Pulse 84; Resp 18; Pulse Ox 98% ; db 13:30 BP 110 / 68; Pulse 77; Resp 17; Pulse Ox 100% on 1 lpm NC; db 14:00 BP 116 / 65; Pulse 75; Resp 18; Pulse Ox 100% on 2 lpm NC; db 14:30 BP 122 / 70; Pulse 75; Resp 18; Pulse Ox 100% ; db 15:00 BP 117 / 62; Pulse 81; Resp 17; Pulse Ox 100% on 1 lpm NC; db 15:30 BP 116 / 73; Pulse 75; Resp 16; Pulse Ox 100% 1 lpm ; db 12:53 Body Mass Index 27.76 (85.28 kg, 175.26 cm) db NIH Stroke Scale Scores: 12:55 NIHSS Score: 7 db ED Course: 12:35 Patient arrived in ED. ec2 12:35 Kobe Guzmán MD is Attending Physician. ec2 12:47 CT Stroke Brain w/o Contrast In Process Unspecified. EDMS 12:51 CT Head Angio In Process Unspecified. EDMS 12:51 CT Neck Angio In Process Unspecified. EDMS 12:53 Initial lab(s) drawn, by me, sent to lab. aa5 12:55 sent to lab. EKG done, by ED staff. Inserted. Inserted saline lock: 22 gauge in left db antecubital area, using aseptic technique. Blood collected. Flushed with 10 mL NS. 12:55 Arm band placed on Patient placed in an exam room. db 13:17 Myrna Solomon, RN is Primary Nurse. db 13:24 Triage completed. db 13:40 Urine collected: straight cath specimen. Straight cath inserted, using sterile db technique, 14 Fr. Specimen obtained. Patient tolerated well. 14:03 Lab(s) recollected, by me, sent to lab. Inserted saline lock: 22 gauge in right db antecubital area, using aseptic technique. Blood collected. Flushed with 10 mL NS. 14:32 Stroke CXR 1 View In Process Unspecified. EDMS 15:23 Yogesh Krishnamurthy MD is Hospitalizing Provider. ec2 15:[address] via stretcher. db 16:07 Patient has correct armband on for positive identification. Bed in low position. Call db light in reach. Side rails up X2. Client placed on continuous cardiac and pulse oximetry monitoring. NIBP monitoring applied. radiation monitor on. Pulse ox on. Warm blanket given. Pillow given. 16:32 Brain Wo Cont In Process Unspecified. EDMS 20:40 Provided Education on: NEED FOR ADMIT . ha1 20:59 No provider procedures requiring assistance completed. Patient admitted, IV remains in ha1 place. Administered Medications: No medications were administered Medication: 16:05 VIS not applicable for this client. db Point of Care Testing: Blood Glucose: 12:55 Blood Glucose: 105 mg/dL; db Ranges: Outcome: 15:23 Decision to Hospitalize by Provider. ec2 20:59 Admitted to Tele accompanied by [facility], via stretcher, room 403, with chart, ha1 20:59 Condition: stable 20:59 Instructed on the need for admit, Demonstrated understanding of instructions, 21:02 Patient left the ED. ha1 NIH Stroke Scale - NIH Stroke Score Date: 10/11/2024 Time: 12:55 Total Score = 7 10. Dysarthria (speech clarity - read or repeat words) - 1(Mild to Moderate) 11. Extinction and Inattention (visual/tactile/auditory/spatial/personal) - 0(No abnormality) 1a. Level of Consciousness (LOC) - 1(Not Alert) 1b. Level of Consciousness (LOC) (Month \T\ Age) - 1(One) 1c. LOC Commands (Open \T\ Closes Eyes/[employer] Sales Representative) - 0(Both) 2. Best Gaze (Lateral Gaze Paresis) - 0(Normal) 3. Visual Field Loss - 0(No visual loss) 4. Facial Palsy - 0(Normal) 5a. Left Arm: Motor (10-second hold) - 0(No drift) 5b. Right Arm: Motor (10-second hold) - 0(No drift) 6a. Left Leg: Motor (5-second hold - always test supine) - 2(Drift, some effort against gravity) 6b. Right Leg: Motor (5-second hold - always test supine) - 2(Drift, some effort against gravity) 7. Limb Ataxia (finger/nose \T\ heel/patino - test with eyes open) - Notes: UNABLE TO COMPLETE 8. Sensory Loss (pinprick arms/legs/face) - 0(Normal) 9. Best Language: Aphasia (description/naming/reading) - 0(No aphasia) Initials: db Signatures: Dispatcher [employer] Jessica Bowman, RN RN aa5 Helga Garcia RN RN ha1 Myrna Solomon RN RN db Kobe Guzmán MD MD ec2 Corrections: (The following items were deleted from the chart) 13:28 12:55 Neuro: db db 16:07 15:55 Reassessment: Patient appears in no apparent distress at this time. db Patient and/or family updated on plan of care and expected duration. Pain level reassessed. Patient is alert, oriented x 3, equal unlabored respirations, skin warm/dry/pink. db
--- NOTE | 2024-10-11 15:24 | EDPHYS ---
Physician Documentation [facility] Name: Emery Taylor Age: 83 yrs Sex: Male : 1940 Arrival Date: 10/11/2024 Time: 12:34 Bed 14 Private MD: ED Physician Kobe Guzmán HPI: 10/11 12:59 This 83 yrs old Male presents to ER via Unassigned with complaints of S/S of ec2 Possible Stroke. 12:59 Patient arrives today for word-finding difficulties, last known well approximately ec2 1130, patient has been having some issues verbalizing his words. No falls injuries or trauma. Patient with improvement of word finding difficulties since onset. History of previous stroke, on apixaban.. Historical: - Allergies: 12:50 Codeine; db 12:50 [place] (Cucumis Sativus); db - Home Meds: 13:24 Eliquis oral [Active]; db - PMHx: 12:50 CVA (colon CA SX); COLON CA; diabetes mellitus; Hypercholesterolemia; db Hypercholesterolemia; - PSHx: 12:50 colon CA SX; db - Immunization history:: Adult Immunizations unknown. - Infectious Disease History:: Denies. - Social history:: Smoking status: Patient denies any tobacco usage or history of. ROS: 13:00 Constitutional: as per hpi ec2 Exam: 12:51 Radiologist reports: no acute findings ec2 13:00 Constitutional: GEN: NAD Head: atraumatic Eyes: EOMI Ears: External ears are ec2 normal. CV: regular rate LUNGS: no respiratory distress ABD: non-distended SKIN: no evidence of rashes MSK: no evidence of trauma. Moves all extremities equally, no facial asymmetry appreciated, some verbalization with no aphasia appreciated, possible slur, patient difficult to follow commands Vital Signs: 12:53 BP 120 / 68; Pulse 84; Resp 18; Temp 97.9(O); Pulse Ox 99% on R/A; Weight 85.28 kg (M); db Height 5 ft. 9 in. ; 13:00 BP 120 / 68; Pulse 85; Resp 18; Pulse Ox 98% on R/A; db 13:15 BP 118 / 65; Pulse 84; Resp 18; Pulse Ox 98% ; db 13:30 BP 110 / 68; Pulse 77; Resp 17; Pulse Ox 100% on 1 lpm NC; db 14:00 BP 116 / 65; Pulse 75; Resp 18; Pulse Ox 100% on 2 lpm NC; db 14:30 BP 122 / 70; Pulse 75; Resp 18; Pulse Ox 100% ; db 15:00 BP 117 / 62; Pulse 81; Resp 17; Pulse Ox 100% on 1 lpm NC; db 15:30 BP 116 / 73; Pulse 75; Resp 16; Pulse Ox 100% 1 lpm ; db 12:53 Body Mass Index 27.76 (85.28 kg, 175.26 cm) db NIH Stroke Scale Scores: 12:55 NIHSS Score: 7 db MDM: 12:35 Medical Screening Exam initiated ec2 13:01 TNKase (Tenecteplase) Screening: Contraindications: Is the patient on Aspirin, Heparin, ec2 or Warfarin: Yes. Data reviewed: vital signs, nurses notes. ED course: Patient arrives today with word finding difficulties with a last known well approximately 1.5 hours prior to arrival. Examination is questionable for possible slurred speech otherwise is verbalizing, no focal deficits appreciated however patient with difficulty following commands. EKG obtained, independently reviewed and interpreted by me, shows normal sinus rhythm, rate of 85, no acute ST segment elevations, intervals are nonactionable. CT scan of the head negative. Will obtain CT angio head and neck, lab work including urine studies. DDx includes stroke, electrolyte disturbances, anemia, dehydration.. 10/11 12:36 Order name: Basic Metabolic Panel; Complete Time: 14:42 ec2 10/11 12:36 Order name: CBC with Diff; Complete Time: 13:24 ec2 10/11 12:36 Order name: High Sensitivity Troponin; Complete Time: 14:42 ec2 10/11 12:36 Order name: Protime (+inr); Complete Time: 14:42 ec2 10/11 12:36 Order name: Ptt, Activated; Complete Time: 14:42 ec2 10/11 12:59 Order name: UAM; Complete Time: 14:42 ec2 10/11 13:13 Order name: Liver (Hepatic) Function; Complete Time: 14:42 EDMS 10/11 13:14 Order name: Glucose, Ancillary Testing; Complete Time: 13:24 EDMS 10/11 14:00 Order name: CREATININE WHOLE BLOOD; Complete Time: 14:42 EDMS 10/11 14:52 Order name: BNP; Complete Time: 16:25 ec2 10/11 15:10 Order name: AMMONIA; Complete Time: 16:25 ec2 10/11 17:12 Order name: Basic Metabolic Panel EDMS 10/11 17:12 Order name: Basic Metabolic Panel EDMS 10/11 17:12 Order name: Basic Metabolic Panel EDMS 10/11 17:12 Order name: Basic Metabolic Panel EDMS 10/11 17:12 Order name: Basic Metabolic Panel EDMS 10/11 17:12 Order name: CBC with Automated Diff EDMS 10/11 17:12 Order name: CBC with Automated Diff EDMS 10/11 17:12 Order name: CBC with Automated Diff EDMS 10/11 17:12 Order name: CBC with Automated Diff EDMS 10/11 17:12 Order name: CBC with Automated Diff EDMS 10/11 17:12 Order name: Lipid Profile EDMS 10/11 17:12 Order name: Lipid Profile EDMS 10/11 17:12 Order name: T4,Total EDMS 10/11 17:12 Order name: T4,Total EDMS 10/11 17:12 Order name: Thyroid Stimulating Hormone EDMS 10/11 17:12 Order name: Thyroid Stimulating Hormone EDMS 10/11 12:36 Order name: CT Head Angio; Complete Time: 13:24 ec2 10/11 12:36 Order name: CT Neck Angio; Complete Time: 13:29 ec2 10/11 12:36 Order name: CT Stroke Brain w/o Contrast; Complete Time: 13:24 ec2 10/11 12:36 Order name: Stroke CXR 1 View; Complete Time: 14:51 ec2 10/11 16:32 Order name: Brain Wo Cont; Complete Time: 16:47 EDMS 10/11 17:12 Order name: Echo with Doppler EDMS 10/11 17:12 Order name: Physical Therapy Consult EDMS 10/11 17:12 Order name: Speech Therapy Consult EDHI 10/11 12:36 Order name: Accucheck; Complete Time: 13:46 ec2 10/11 12:36 Order name: Cardiac monitoring; Complete Time: 13:46 ec2 10/11 12:36 Order name: EKG - Nurse/Tech; Complete Time: 13:46 ec2 10/11 12:36 Order name: IV Saline Lock; Complete Time: 13:46 ec2 10/11 12:36 Order name: Labs collected and sent; Complete Time: 13:46 ec2 10/11 12:36 Order name: NPO; Complete Time: 13:46 ec2 10/11 12:36 Order name: O2 Per Protocol; Complete Time: 13:46 ec2 10/11 12:36 Order name: O2 Sat Monitoring; Complete Time: 13:46 ec2 10/11 12:36 Order name: Stroke Swallow Screen; Complete Time: 13:46 ec2 10/11 13:09 Order name: Labs - recollect needed: blue . green; Complete Time: 14:06 bc6 Administered Medications: No medications were administered Point of Care Testing: Blood Glucose: 12:55 Blood Glucose: 105 mg/dL; db Ranges: Critical Glucose Levels:Adult <50 mg/dl or >400 mg/dl <40 mg/dl or >180 mg/dl Disposition Summary: 10/11/24 15:23 Hospitalization Ordered Notes: Hospitalization Status: Inpatient Admission ec2 Provider: Yogesh Krishnamurthy2 Location: Telemetry/[facility] (Inpatient) ec2 Condition: Stable ec2 Problem: new ec2 Symptoms: have improved ec2 Bed/Room Type: Standard ec2 Room Assignment: 403(10/11/24 19:19) bc6 Diagnosis - Confusion, aphasia ec2 Forms: - Medication Reconciliation Form ec2 - SBAR form ec2 - Leadership Thank You Letter ec2 NIH Stroke Scale - NIH Stroke Score Date: 10/11/2024 Time: 12:55 Total Score = 7 10. Dysarthria (speech clarity - read or repeat words) - 1(Mild to Moderate) 11. Extinction and Inattention (visual/tactile/auditory/spatial/personal) - 0(No abnormality) 1a. Level of Consciousness (LOC) - 1(Not Alert) 1b. Level of Consciousness (LOC) (Month \T\ Age) - 1(One) 1c. LOC Commands (Open \T\ Closes Eyes/Casket Coverer) - 0(Both) 2. Best Gaze (Lateral Gaze Paresis) - 0(Normal) 3. Visual Field Loss - 0(No visual loss) 4. Facial Palsy - 0(Normal) 5a. Left Arm: Motor (10-second hold) - 0(No drift) 5b. Right Arm: Motor (10-second hold) - 0(No drift) 6a. Left Leg: Motor (5-second hold - always test supine) - 2(Drift, some effort against gravity) 6b. Right Leg: Motor (5-second hold - always test supine) - 2(Drift, some effort against gravity) 7. Limb Ataxia (finger/nose \T\ heel/patino - test with eyes open) - Notes: UNABLE TO COMPLETE 8. Sensory Loss (pinprick arms/legs/face) - 0(Normal) 9. Best Language: Aphasia (description/naming/reading) - 0(No aphasia) Initials: db Addendum: 10/12/2024 21:44 NIH performed with nursing, 1 for LOC, 2 for left leg motor, 2 for right leg ec2 motor, 1 for dysarthria total of 7. Limb ataxia was nontestable due to patient cooperation. Rest of examination 0. Signatures: Dispatcher [employer] EDGiovani Coy RN RN ja1 Myrna Solomon RN RN db [place]son, Breana 6 Kobe Guzmán MD MD ec2 Corrections: (The following items were deleted from the chart) 10/11 12:36 12:36 Neck Angio+CT.RAD.BRZ ordered. EDMS EDMS 12:36 12:36 CT-STROKE BRAIN W/O CONTRAST+CT.RAD.BRZ ordered. EDMS EDMS 12:37 12:37 Chest Single View+RAD.RAD.BRZ ordered. EDMS EDMS 13:13 13:00 HEPATIC FUNCTION+C.LAB.BRZ ordered. EDMS EDMS 15:10 15:10 AMMONIA+C.LAB.BRZ ordered. EDMS EDMS 16:32 13:29 MR STROKE PROTOCOL+MRI.RAD.BRZ ordered. EDMS EDMS 18:40 15:23 ec2 ja1 19:19 18:40 410 ja1 bc6
--- NOTE | 2024-10-11 16:43 | RAD REPORT ---
EXAMINATION: MRI BRAIN WITHOUT CONTRAST CLINICAL INDICATION: APHASIA TECHNIQUE: Multiplanar multisequence MR images of the brain were obtained without intravenous contras t. Unless otherwise specified, incidental findings do not require dedicated imaging follow-up. COMPARISON: CT study same date FINDINGS: INTRACRANIAL: Diffusion-weighted images show area of elevated DWI signal left frontal lobe centrum se [place] white matter, largest component measuring 14 mm subtle ADC diminished signal also present in this region. There is advanced brain atrophy with advanced T2/FLAIR hyperintensities in the perive ntricular and deep white matter regions, likely representing chronic microvascular ischemic changes. There is no mass effect or midline shift. No abnormal extraaxial fluid collection. Multiple areas of remote infarction seen including right cerebellum, right frontal region. VASCULATURE: Normal signal voids in the larger intracranial arteries and dural venous sinuses. SINUSES: The paranasal sinuses and mastoid air cells are predominantly clear. BONE: The marrow signal pattern is within normal limits. IMPRESSION: Findings suggestive of 14-15 mm area of acute nonhemorrhagic infarct left frontal lobe anteriorly. Multiple areas of old/remote infarction seen.
[2024-10-11] MEDS ORDERED: ONDANSETRON 4 MG/2 ML VIAL IV PRN (17:04)
[2024-10-11] MEDS ORDERED: D10W 125 ML IV PRN (17:15)
[2024-10-11] MEDS ORDERED: GLUCAGON 1 MG/VIAL IM PRN (17:15)
--- NOTE | 2024-10-11 17:20 | P.HP ---
Certification for Inpatient Patient admitted to: Inpatient With expected LOS: >2 Midnights Patient will require the following post-hospital care: None Practitioner: I am a practitioner with admitting privileges, knowledge of patient current condition, hospital course, and medical plan of care. Services: Services provided to patient in accordance with Admission requirements found in Title 42 Section 412.3 of the Code of Federal Regulations Patient History Date of Service: 10/11/24 Reason for admission: Acute CVA History of Present Illness: 83-year-old male with history of atrial fibrillation on chronic anticoagulation, chronic diastolic congestive heart failure, piz-cxdfkcn-ejiiihniy diabetes, hyperlipidemia and history of previous CVA presented to the emergency department with chief complaint of troubles with his speech and ambulation/gait. His family at bedside report that his symptoms started between 1130 and noon today. He does take Eliquis outpatient was not a candidate for TNK, CT of the head was negative for acute findings, CTA of the head and neck were both negative for large vessel occlusion or other significant stenosis. Patient still with difficulties finding his words and coordination. MRI was obtained while he was in the ER which showed findings suggestive of a 14 to 15 mm area of acute nonhemorrhagic infarct in the left frontal lobe anteriorly. Patient will be admitted for further management of acute ischemic CVA Allergies codeine [Codeine] Allergy (Verified 02/19/23 16:29) Nausea/Vomiting [place] Allergy (Uncoded 10/06/13 23:32) Nausea/Vomiting Home Medications: Omeprazole [Prilosec] 40 mg PO DAILY 10/07/13 Simvastatin [Zocor*] 40 mg PO BEDTIME #30 tablet 10/08/13 Duloxetine [Cymbalta *] 30 mg PO DAILY #30 cap 02/28/23 Tamsulosin [Flomax*] 0.4 mg PO BEDTIME #30 cap 02/28/23 Aspirin Chewable [Aspirin Chewable*] 81 mg PO DAILY 12/22/23 Metformin ER [Glucophage ER*] 500 mg PO BID 12/22/23 Amox/Clavulanate [Augmentin 500-125 mg Tab*] 500 mg PO BID #14 tab 12/27/23 Apixaban [Eliquis] 5 mg PO BID 30 Days #60 tab 12/27/23 Furosemide [Lasix*] 20 mg PO BIDL 30 Days #60 tab 12/27/23 Mometasone/Formoterol [Dulera 100 Mcg/5 Mcg Inhaler] 2 puff IH BID 30 Days #1 inhaler 12/27/23 Sotalol HCl [Betapace*] 80 mg PO BID 6AM 6PM 30 Days #60 tab 12/27/23 predniSONE [Deltasone*] 10 mg PO DAILY 15 Days #15 tab 12/27/23 - Past Medical/Surgical History Diabetic: No -: Colon CA, 2009, Oncology-Dr. Reeves -: GERD, GI-Dr. Vasquez -: DM2 -: HLD -: HTN -: CHF diastolic -: A-fib/flutter -: Colon Resection 2008 Psychosocial/ Personal History: Lives at home with his - Social History Alcohol use: No CD- Drugs: No Caffeine use: No Place of Residence: Home Review of Systems 10-point ROS is otherwise unremarkable Neurological: Change in Speech, Confusion, As per HPI Physical Examination - Physical Exam General: Alert, In no apparent distress, Oriented x2 HEENT: Atraumatic, PERRLA Neck: Supple, 2+ carotid pulse no bruit, No LAD Respiratory: Clear to auscultation bilaterally, Normal air movement Cardiovascular: Regular rate/rhythm, Normal S1 S2 Gastrointestinal: Normal bowel sounds, No tenderness Musculoskeletal: No tenderness Integumentary: No rashes Neurological: Sensation intact, Other (Dysarthria, mild left facial droop, trouble with following commands. NIH~5) - Studies Laboratory Data (last 24 hrs) 10/11/24 10/11/24 10/11/24 14:03 14:03 12:59 WBC Hgb Hct Plt Count PT 12.7 INR 1.12 APTT 28.4 Sodium 141 Potassium 4.4 BUN 22 H Creatinine 1.40 H Glucose 107 H Total Bilirubin 0.4 Cancelled AST 16 Cancelled ALT 20 Cancelled Alkaline Phosphatase 72 Cancelled 10/11/24 12:53 WBC 7.10 Hgb 12.5 L Hct 37.4 L Plt Count 122 L PT INR APTT Sodium Potassium BUN Creatinine Glucose Total Bilirubin AST ALT Alkaline Phosphatase Assessment and Plan - Plan Assessment: 14 to 15 mm acute ischemic CVA left frontal lobe anteriorly Atrial fibrillation on chronic anticoagulation Diabetes mellitus type [id number]-wwoqtcw-vmmzmxuws Hypertension Hyperlipidemia Plan: 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 Guzman, continue Eliquis, folic acid, statin PT, OT, speech therapy consultations Diabetes mellitus type 2nll-rshzucn-pikyajzww Every 6 hours Accu-Chek, sliding scale insulin A1c in the morning Hypertension Hyperlipidemia Continue home medications when verified DVT PPX: Continue Eliquis Code status: Full code Discharge Plan: Home Plan to discharge in: Greater than 2 days - Advance Directives Does patient have a Living Will: No Does patient have a Durable POA for Healthcare: No - Code Status/Comfort Care Code Status Assessed: Yes (Full code) Critical Care: No Time Spent Managing Pts Care (In Minutes): 70
[2024-10-11] MEDS: INSULIN REGULAR (HUMAN) 100 UNIT/ML SQ SCH (18:00)
[2024-10-11] MEDS: NA CHLORIDE 0.9% 1,000 ML IV SCH (21:34)
[2024-10-11] MEDS: ATORVASTATIN 40 MG TAB PO SCH (21:34)
[2024-10-11] MEDS: APIXABAN 5 MG TABLET PO SCH (21:34)
[2024-10-12 06:28] LABS: Absolute Eosinophils 0.1 K/uL (0-0.5); Absolute Lymphocytes (CBC) 1.7 K/uL (0.7-4.9); Absolute Monocytes 0.6 K/uL (0.1-1.3); Absolute Neutrophil 5.2 K/uL (1.8-8.0); Basophils % 0.2 % (0-1.3); Eosinophils % 1.7 % (0-4.4); Hemoglobin 11.6 g/dL (13.6-17.9); Lymphocytes % 21.7 % (15.3-44.8); MCH 27.9 pg (27.0-35.0); MCHC 33.2 g/dL (32.0-36.0); MPV 7.9 fL (7.6-11.3); Monocytes % 7.7 % (3.3-12.3); Neutrophils % 68.7 % (41.7-73.7); Nucleated Red Blood Cells % 0.1 % (0-0); Platelets 141 thou/uL (152-406); RBC Red Blood Cell Count 4.16 M/uL (4.33-5.43); Red Cell Distribution Width 15.6 % (12.1-15.2)
[2024-10-12 06:59] LABS: Anion Gap 9.9 mEq/L (5.0-15.0); Potassium 3.9 mEq/L (3.5-5.1); T4,Total 5.3 ug/dL (4.5-12.1); Thyroid Stimulating Hormone 1.46 uIU/mL (0.358-3.740)
[2024-10-12] MEDS: FOLIC ACID 1 MG TABLET PO SCH (08:17)
[2024-10-12] MEDS: POTASSIUM CL SA 10 MEQ TAB PO ONE (08:17)
--- NOTE | 2024-10-12 13:32 | ECHO ---
HEIGHT: 5 ft 9 in WEIGHT: 180 lb 8 oz DATE OF STUDY: 10/12/[address]: Ramirez Coburn NP 2-DIMENSIONAL: YES M.MODE: YES DOPPLER: YES COLOR FLOW: YES TDS: NO PORTABLE: YES DEFINITY: NO BUBBLE STUDY: NO DIAGNOSIS: STROKE CARDIAC HISTORY: CATHERIZATION: NO SURGERY: NO PROSTHETIC VALVE: NO PACEMAKER: NO MEASUREMENTS (cm) DIASTOLIC (NORMALS) SYSTOLIC (NORMALS) IVSd 1.1 (0.6-1.2) LA Diam 2.1 (1.9-4.0) LVEF 55-60% LVIDd 3.7 (3.5-5.7) LVIDs 2.5 (2.0-3.5) %FS 32% LVPWd 1.2 (0.6-1.2) Ao Diam 3.0 (2.0-3.7) 2 DIMENSIONAL ASSESSMENT: RIGHT ATRIUM: NORMAL LEFT ATRIUM: NORMLA RIGHT VENTRICLE: NORMAL LEFT VENTRICLE: NORMAL TRICUSPID VALVE: NORMAL MITRAL VALVE: TRACE MITRAL REGURGITATION PULMONIC VALVE: NORMAL AORTIC VALVE: NORMAL PERICARDIAL EFFUSION: NONE AORTIC ROOT: MILDLY DILATED ASCENDING AORTIA 3.5 CENTIMETERS LEFT VENTRICULAR WALL MOTION: NORMAL. DOPPLER/COLOR FLOW: DIASTOLIC DYSFUNCTION. COMMENTS: 1. NORMAL LEFT VENTRICULAR SYSTOLIC FUNCTION. LEFT VENTRICULAR EJECTION FRACTION 55-60%. NORMAL WALL MOTION. 2. DIASTOLIC DYSFUNCTION. TECHNOLOGIST: TOMER JACOBS
--- NOTE | 2024-10-12 14:41 | EKG ---
Test Date: 2024-10-11 Test Time: 12:55:49 Dairy Hand: NEMESIO MEASUREMENT RESULTS: Intervals: Rate: 85 LA: 202 QRSD: 78 QT: 342 QTc: 406 Henniker: P: 60 LA: 202 QRS: 18 T: 66 INTERPRETIVE STATEMENTS: Normal sinus rhythm Low voltage QRS Borderline ECG Compared to ECG 12/26/2023 06:42:20 Low QRS voltage now present Atrial flutter no longer present Right bundle-branch block no longer present Electronically Signed On 10-12-24 14:39:57 CDT by Ender Crenshaw
--- NOTE | 2024-10-12 16:03 | P.PN ---
Date of Service: 10/12/24 Subjective: Still with slurred speech/trouble finding words No other acute events overnight ROS: 10 point ROS as noted above, otherwise negative Physical exam GEN: Alert, oriented x2, NAD, slurred speech and trouble finding worse HEENT: Normal conjunctiva, sclera anicteric CV: Regular rate and rhythm, no edema Pulm: Nonlabored respirations on room air ABD: Soft, nontender, nondistended MSK: No joint tenderness Integumentary: No rashes Neuro: Slurred speech, normal affect Vitals reviewed Assessment: 14 to 15 mm acute ischemic CVA left frontal lobe anteriorly Atrial fibrillation on chronic anticoagulation Diabetes mellitus type [id number]-xpoydhc-kksavujgb Hypertension Hyperlipidemia Plan: 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 Guzman, continue Eliquis, folic acid, statin PT, OT, speech therapy consultations Diabetes mellitus type [id number]-luwqtce-nsmhhbpjo Every 6 hours Accu-Chek, sliding scale insulin A1c in the morning Hypertension Hyperlipidemia Continue home medications when verified DVT PPX: Continue Eliquis Code status: Full code Discharge Plan:Inp rehab Plan to discharge in: Greater than 2 days Time Spent Managing Pts Care (In Minutes): 35
[2024-10-12 21:16] LABS: Anion Gap 7.2 mEq/L (5.0-15.0); Phosphorus 2.6 mg/dL (2.5-4.9); Potassium 5.2 mEq/L (3.5-5.1)
[2024-10-12] MEDS: SOD POLYSTYREN SUL 15 GM/60 ML UCUP PO ONE (22:36)
[2024-10-13 06:41] LABS: Absolute Eosinophils 0.1 K/uL (0-0.5); Absolute Monocytes 0.5 K/uL (0.1-1.3); Absolute Neutrophil 4.5 K/uL (1.8-8.0); Basophils % 0.4 % (0-1.3); Eosinophils % 2.1 % (0-4.4); Hematocrit 34.4 % (39.6-49.0); Hemoglobin 11.3 g/dL (13.6-17.9); Lymphocytes % 16.2 % (15.3-44.8); MCH 27.5 pg (27.0-35.0); MCHC 32.8 g/dL (32.0-36.0); MCV 83.9 fL (80-100); Monocytes % 8.7 % (3.3-12.3); Neutrophils % 72.6 % (41.7-73.7); Platelets 131 thou/uL (152-406); RBC Red Blood Cell Count 4.11 M/uL (4.33-5.43); Red Cell Distribution Width 15.6 % (12.1-15.2)
--- NOTE | 2024-10-13 13:43 | P.PN ---
Date of Service: 10/13/24 Subjective: Still with slurred speech/trouble finding words No other acute events overnight Some mild improvement ROS: 10 point ROS as noted above, otherwise negative Physical exam GEN: Alert, oriented x2, NAD, slurred speech and trouble finding worse HEENT: Normal conjunctiva, sclera anicteric CV: Regular rate and rhythm, no edema Pulm: Nonlabored respirations on room air ABD: Soft, nontender, nondistended MSK: No joint tenderness Integumentary: No rashes Neuro: Slurred speech, normal affect Vitals reviewed Assessment: 14 to 15 mm acute ischemic CVA left frontal lobe anteriorly Atrial fibrillation on chronic anticoagulation Diabetes mellitus type 2rso-vtcsyxq-hdmnhgtgm Hypertension Hyperlipidemia Plan: 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 Guzman, continue Eliquis, folic acid, statin Not adding additional asa or plavix given risk for hemorrhagic conversion PT, OT, speech therapy consultations Plan for inpatient rehab likely Diabetes mellitus type 1kek-dahxszb-jpuyptzxt Every 6 hours Accu-Chek, sliding scale insulin A1c was 5.6 Hypertension Hyperlipidemia Continue home medications when verified DVT PPX: Continue Eliquis Code status: Full code Discharge Plan:Inp rehab Plan to discharge in: Greater than 2 days Time Spent Managing Pts Care (In Minutes): 35
[2024-10-14] MEDS: METOPROLOL XL 25 MG TAB PO SCH (08:24)
[2024-10-14 08:54] LABS: Absolute Eosinophils 0.1 K/uL (0-0.5); Absolute Lymphocytes (CBC) 1.2 K/uL (0.7-4.9); Absolute Monocytes 0.7 K/uL (0.1-1.3); Absolute Neutrophil 5.8 K/uL (1.8-8.0); Basophils % 0.4 % (0-1.3); Eosinophils % 1.9 % (0-4.4); Hemoglobin 13.1 g/dL (13.6-17.9); Lymphocytes % 15.2 % (15.3-44.8); MCH 27.7 pg (27.0-35.0); MCHC 33.5 g/dL (32.0-36.0); MCV 82.7 fL (80-100); MPV 8.2 fL (7.6-11.3); Monocytes % 9.1 % (3.3-12.3); Neutrophils % 73.4 % (41.7-73.7); Platelets 127 thou/uL (152-406); RBC Red Blood Cell Count 4.71 M/uL (4.33-5.43); Red Cell Distribution Width 15.7 % (12.1-15.2)
--- NOTE | 2024-10-14 09:50 | P.PN ---
Date of Service: 10/14/24 Subjective: Still with slurred speech/trouble finding words No other acute events overnight Some mild improvement ROS: 10 point ROS as noted above, otherwise negative Physical exam GEN: Alert, oriented x2, NAD, slurred speech and trouble finding worse HEENT: Normal conjunctiva, sclera anicteric CV: Regular rate and rhythm, no edema Pulm: Nonlabored respirations on room air ABD: Soft, nontender, nondistended MSK: No joint tenderness Integumentary: No rashes Neuro: Slurred speech, normal affect Vitals reviewed Assessment: 14 to 15 mm acute ischemic CVA left frontal lobe anteriorly Atrial fibrillation on chronic anticoagulation Diabetes mellitus type 2cbf-pafdydj-onjaufqun Hypertension Hyperlipidemia Plan: 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 Guzman, continue Eliquis, folic acid, statin Not adding additional asa or plavix given risk for hemorrhagic conversion PT, OT, speech therapy consultations Plan for inpatient rehab likely, will place consult Diabetes mellitus type 5jhx-agvaibh-psbznywnv Every 6 hours Accu-Chek, sliding scale insulin A1c was 5.6 Hypertension Hyperlipidemia Continue home medications when verified DVT PPX: Continue Eliquis Code status: Full code Discharge Plan:Inp rehab Plan to discharge in: Greater than 2 days Time Spent Managing Pts Care (In Minutes): 35
--- NOTE | 2024-10-14 15:27 | P.CNS ---
Date of Consult: 10/14/24 Chief Complaint: Acute CVA History of Present Illness: Patient with PMH of atrial fibrillation, presented with CVA, denies chest pain ,no palpitations, no sycnope, no breathing problems. Allergies codeine [Codeine] Allergy (Verified 02/19/23 16:29) Nausea/Vomiting [place] Allergy (Uncoded 10/06/13 23:32) Nausea/Vomiting Home medications list reviewed: Yes Home Medications: Metformin ER [Glucophage ER] 1,000 mg PO BIDWM 10/12/24 Metoprolol Succinate [Toprol Xl] 25 mg PO DAILY 10/12/24 Omeprazole [Prilosec] 40 mg PO DAILY 10/12/24 Simvastatin [Zocor] 40 mg PO BEDTIME 10/12/24 - Past Medical/Surgical History Diabetic: No -: Colon CA, 2009, Oncology-Dr. Reeves -: GERD, GI-Dr. Vasquez -: DM2 -: HLD -: HTN -: CHF diastolic -: A-fib/flutter -: Colon Resection 2008 Psychosocial/ Personal History: Lives at home with his - Social History Smoking Status: Former smoker (He currently dips) Alcohol use: No CD- Drugs: No Caffeine use: No Place of Residence: Home Review of Systems 10-point ROS is otherwise unremarkable Physical Examination Temp Pulse Resp BP Pulse Ox 97.9 F 73 16 119/78 98 10/14/24 12:00 10/14/24 12:00 10/14/24 12:00 10/14/24 12:00 10/14/24 12:00 General: Alert, In no apparent distress HEENT: Atraumatic, PERRLA, Mucous membr. moist/pink, EOMI, Sclerae nonicteric Neck: Supple, 2+ carotid pulse no bruit, No LAD, Without JVD or thyroid abnormality Respiratory: Clear to auscultation bilaterally, Normal air movement Cardiovascular: Irregular heart rate/rhythm Gastrointestinal: Normal bowel sounds, No tenderness Musculoskeletal: No tenderness Integumentary: No rashes Neurological: Normal gait, Normal speech, Normal tone, Normal affect Lymphatics: No axilla or inguinal lymphadenopathy - Problems (1) Atrial fibrillation Current Visit: No Status: Acute Plan: rate controlled with recent CVA continue Toprol XL 25 mg daily continue Eliquis 5 mg po BID continue to monitor on tele
[2024-10-15 06:20] LABS: Absolute Eosinophils 0.2 K/uL (0-0.5); Absolute Lymphocytes (CBC) 1.6 K/uL (0.7-4.9); Absolute Monocytes 0.8 K/uL (0.1-1.3); Absolute Neutrophil 5.1 K/uL (1.8-8.0); Basophils % 0.4 % (0-1.3); Eosinophils % 2.6 % (0-4.4); Hematocrit 40.5 % (39.6-49.0); Hemoglobin 13.2 g/dL (13.6-17.9); Lymphocytes % 20.3 % (15.3-44.8); MCH 27.4 pg (27.0-35.0); MCHC 32.6 g/dL (32.0-36.0); MCV 83.9 fL (80-100); MPV 7.9 fL (7.6-11.3); Monocytes % 10.3 % (3.3-12.3); Neutrophils % 66.4 % (41.7-73.7); Platelets 133 thou/uL (152-406); RBC Red Blood Cell Count 4.83 M/uL (4.33-5.43); Red Cell Distribution Width 15.7 % (12.1-15.2)
[2024-10-15 06:31] LABS: Anion Gap 10.9 mEq/L (5.0-15.0); Potassium 3.9 mEq/L (3.5-5.1)
--- NOTE | 2024-10-15 10:49 | P.PN ---
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 Guzman, continue Eliquis, folic acid, statin Not adding additional asa or plavix given risk for hemorrhagic conversion PT, OT, speech therapy consultations Plan for inpatient rehab likely, will place consult Diabetes mellitus type 2hpd-hmilxhr-ohcdbdwax Every 6 hours Accu-Chek, sliding scale insulin A1c was 5.6 Hypertension Hyperlipidemia Continue home medications when verified DVT PPX: Continue Eliquis Code status: Full code Discharge Plan:Inp rehab Plan to discharge in: Greater than 2 days Time Spent Managing Pts Care (In Minutes): 35
[2024-10-16 07:21] LABS: Hemoglobin 14.1 g/dL (13.6-17.9); MCH 27.7 pg (27.0-35.0); MCHC 33.6 g/dL (32.0-36.0); MCV 82.5 fL (80-100); MPV 8.4 fL (7.6-11.3); Platelets 147 thou/uL (152-406); RBC Red Blood Cell Count 5.09 M/uL (4.33-5.43); Red Cell Distribution Width 15.9 % (12.1-15.2)
[2024-10-16 07:35] LABS: Anion Gap 9.8 mEq/L (5.0-15.0); Potassium 3.8 mEq/L (3.5-5.1)
[2024-10-16] MEDS: POTASSIUM 25 MEQ EFFERV TAB PO ONE (10:04)
[2024-10-16] MEDS: METOPROLOL XL 25 MG TAB PO ONE (13:05)
--- NOTE | 2024-10-16 13:26 | P.PN ---
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 Guzman, continue Eliquis, folic acid, statin Not adding additional asa or plavix given risk for hemorrhagic conversion PT, OT, speech therapy consultations Plan for inpatient rehab Diabetes mellitus type 6wco-fldxltu-qpghzfrlf Every 6 hours Accu-Chek, sliding scale insulin A1c was 5.6 Hypertension Hyperlipidemia Continue home medications when verified Interval Hospital course 10/16 -Sleeping, cooperative -Awaiting inpatient rehab approval -continue with physical/Occupational therapy -No signs of aspiration while eating -Blood pressure soft this AM, held metoprolol til 1300 DVT PPX: Continue Eliquis Code status: Full code Discharge Plan:Inp rehab Plan to discharge in: Greater than 2 day
[2024-10-16 22:31] VITALS: BMI 25.2
[2024-10-17 02:11] VITALS: O2SAT 96
[2024-10-17 06:33] LABS: Hematocrit 43.7 % (39.6-49.0); Hemoglobin 14.4 g/dL (13.6-17.9); MCH 27.4 pg (27.0-35.0); MCHC 32.9 g/dL (32.0-36.0); MCV 83.2 fL (80-100); MPV 8.6 fL (7.6-11.3); Platelets 154 thou/uL (152-406); RBC Red Blood Cell Count 5.26 M/uL (4.33-5.43); Red Cell Distribution Width 15.6 % (12.1-15.2)
[2024-10-17 06:40] LABS: Anion Gap 10.5 mEq/L (5.0-15.0); Potassium 4.5 mEq/L (3.5-5.1)
[2024-10-17 08:03] VITALS: BP 136/74; TEMP 97.5
--- NOTE | 2024-10-17 10:23 | P.DS ---
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 His family at bedside report that his symptoms started between 1130 and noon today. He does take Eliquis outpatient was not a candidate for TNK, CT of the head was negative for acute findings, CTA of the head and neck were both negative for large vessel occlusion or other significant stenosis. Patient still with difficulties finding his words and coordination. MRI was obtained while he was in the ER which showed findings suggestive of a 14 to 15 mm area of acute nonhemorrhagic infarct in the left frontal lobe anteriorly. 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 Guzman, continued Eliquis, folic acid, statin Refrained from additional asa or plavix given risk for hemorrhagic conversion Emery worked with PT, OT, and speech therapy DC to inpatient rehab Diabetes mellitus type 7bxs-pmsokjx-aopwngxlj Glucose well controlled A1c was 5.6 Hypertension Hyperlipidemia Continued home medications when verified On 10/17/2024, Emery was seen on morning rounds and deemed hemodynamically stable. Dr. Guzman has evaluated and cleared him for discharge to inpatient rehab for continued rehab. Folic acid and atorvastatin were prescribed. Physical exam GEN: Awake CV: Mild tachycardia, no edema Pulm: Nonlabored respirations, clear BBS, on room air ABD: Soft and nontender to palpation, normoactive bowel sounds MSK: No joint tenderness, 2 + peripheral pulses Integumentary: No rashes Neuro: Slurred speech, normal affect Vital Signs/Physical Exam: Temp Pulse Resp BP Pulse Ox 97.5 F 87 18 136/74 99 10/17/24 08:00 10/17/24 08:31 10/17/24 08:00 10/17/24 08:31 10/17/24 08:00 Laboratory Data at Discharge: WBC 9.60 thou/uL (4.3-10.9) 10/17/24 05:47 Hgb 14.4 g/dL (13.6-17.9) 10/17/24 05:47 Hct 43.7 % (39.6-49.0) 10/17/24 05:47 Plt Count 154 thou/uL (152-406) 10/17/24 05:47 PT 12.7 SECONDS (10-13.0) 10/11/24 14:03 INR 1.12 10/11/24 14:03 APTT 28.4 SECONDS (27.2-37.4) 10/11/24 14:03 Sodium 139 mEq/L (136-145) 10/17/24 05:47 Potassium 4.5 mEq/L (3.5-5.1) D 10/17/24 05:47 BUN 22 mg/dL (7-18) H 10/17/24 05:47 Creatinine 1.28 mg/dL (0.70-1.30) 10/17/24 05:47 Glucose 93 mg/dL (74-106) 10/17/24 05:47 Phosphorus 2.6 mg/dL (2.5-4.9) 10/12/24 20:50 Magnesium 2.0 mg/dL (1.6-2.4) 10/12/24 20:50 Total Bilirubin 0.4 mg/dL (0.2-1.0) 10/11/24 14:03 AST 16 U/L (15-37) 10/11/24 14:03 ALT 20 U/L (16-61) 10/11/24 14:03 Alkaline Phosphatase 72 U/L (45-117) 10/11/24 14:03 Triglycerides 102 mg/dL (<150) 10/12/24 05:54 Cholesterol 93 mg/dL (<200) 10/12/24 05:54 HDL Cholesterol 38 mg/dL (40-60) L 10/12/24 05:54 Cholesterol/HDL Ratio 2.45 10/12/24 05:54 Home Medications: Metformin ER [Glucophage ER*] 1,000 mg PO BIDWM 10/12/24 Metoprolol Succinate [Toprol Xl*] 25 mg PO DAILY 10/12/24 Omeprazole [Prilosec] 40 mg PO DAILY 10/12/24 Apixaban [Eliquis] 5 mg PO BID 10/17/24 Atorvastatin Calcium [Lipitor] 40 mg PO BEDTIME 30 Days #30 tab 10/17/24 Folic Acid 1 mg PO DAILY 30 Days #30 tab 10/17/24 New Medications: Folic Acid 1 mg PO DAILY 30 Days #30 tab Atorvastatin Calcium [Lipitor] 40 mg PO BEDTIME 30 Days #30 tab Physician Discharge Instructions: 1. Please call and schedule a follow-up appointment with your PCP in 3-5 days - Please follow-up with your PCP for medication refills/adjustments 2. Please call and schedule a follow-up appointment with Dr. Guzman in one week 3. Please call and schedule a follow-up appointment with Dr. Crenshaw in 1 to 2 weeks 4. Continue Heart healthy diet- minced, moist, no straw 5. activity restrictions, fall precaution work with therapy 6. Return to the ED if symptoms worsen New medications Atorvastatin 40 mg daily Folic acid 1 mg daily Diet: AHA Activity: Fall precautions Followup: Gabino Guzman MD [ASSOCIATE-ACTIVE - CAN ADMIT] - 1 Week Ender Crenshaw MD [ACTIVE - CAN ADMIT] - Wyatt Mari MD [Primary Care Provider] - 1-2 Weeks
--- NOTE | 2024-10-17 12:50 | EKG ---
Test Date: 2024-10-12 Test Time: 19:00:59 Carpet Cleaner: REJI MEASUREMENT RESULTS: Intervals: Rate: 75 IA: 184 QRSD: 72 QT: 372 QTc: 415 [place]: P: 64 IA: 184 QRS: -5 T: 47 INTERPRETIVE STATEMENTS: Sinus rhythm with premature supraventricular complexes Low voltage QRS Borderline ECG Compared to ECG 10/11/2024 12:55:49 Atrial premature complex(es) now present Electronically Signed On 10-17-24 12:32:58 CDT by Ender Crenshaw
== END 2024-10-17 11:16 | DRG 65 ==
LOC: ER 12:34 → ERHOLD 17:04 → 4TH 19:25
PROVIDERS: ADMIT Hospitalist; ATTEND Internal Medicine
DX: I63.9 Cerebral infarction, unspecified (principal); I50.32 Chronic diastolic (congestive) heart failure; I11.0 Hypertensive heart disease with heart failure; E11.9 Type 2 diabetes mellitus without complications; I48.91 Unspecified atrial fibrillation; E78.00 Pure hypercholesterolemia, unspecified; K21.9 Gastro-esophageal reflux disease without esophagitis; R29.707 NIHSS score 7; R47.01 Aphasia; R41.0 Disorientation, unspecified; R47.81 Slurred speech; R29.810 Facial weakness; Z88.5 Allergy status to narcotic agent; Z79.82 Long term (current) use of aspirin; Z79.01 Long term (current) use of anticoagulants; Z79.84 Long term (current) use of oral hypoglycemic drugs; Z79.52 Long term (current) use of systemic steroids; Z86.73 Personal history of transient ischemic attack (TIA), and cerebral infarction without residual deficits; Z85.038 Personal history of other malignant neoplasm of large intestine; Z79.899 Other long term (current) drug therapy; Z87.891 Personal history of nicotine dependence
CPT/HCPCS: 36415; 51702; 70450; 70496; 70498; 70551; 71045; 80048; 80061; 80076; 81001; 82140; 82565; 82947; 83036; 83735; 83880; 84100; 84436; 84443; 84484; 85025; 85027; 85610; 85730; 92507; 92523; 92610; 93005; 93306; 97112; 97116; 97161; 97165; 97530; 99285; J7030; Q9967

== ENCOUNTER 2024-10-17 10:53 | Inpatient (IN) | payer OTHER ==
--- OUTSIDE RECORDS SUMMARY | 2024-10-17 11:15 | XMS REPORT | Continuity of Care Document ---
Author Name Unknown Address [address] [place] [address] [facility] Address [address] [place] [address] Care Team Providers Care Sales Representative Printing Name Role Phone Unavailable Unavailable Unavailable Payers Payer Name Policy Type Policy Number Effective Date Expirati on Date Source [employer] MED[employer] PPO [id number] 1 00:00:00 Encounters Start Date/Time End Date/Time Encounter Type Admission Type Attending [facility] Facility Care Department Encounter ID Source 2022-08-24 10:43:54 Outpatient [facility] [id number] [facility]
[2024-10-17] MEDS ORDERED: MELATONIN 3 MG TABLET PO PRN (11:51)
[2024-10-17] MEDS ORDERED: ACETAMINOPHEN 500 MG TAB PO PRN (11:51)
[2024-10-17] MEDS ORDERED: GLUCAGON 1 MG/VIAL IM PRN (12:07)
[2024-10-17] MEDS ORDERED: D10W 125 ML IV PRN (12:07)
[2024-10-17] MEDS: PANTOPRAZOLE 40MG TABLET PO SCH (13:11)
[2024-10-17] MEDS: INSULIN REGULAR (HUMAN) 100 UNIT/ML SQ SCH (16:30)
[2024-10-17] MEDS: METFORMIN ER 500 MG TAB PO SCH (17:26)
[2024-10-17] MEDS: SENOSIDES 8.6 MG TAB PO SCH (21:11)
[2024-10-17] MEDS: ATORVASTATIN 40 MG TAB PO SCH (21:11)
[2024-10-17] MEDS: APIXABAN 5 MG TABLET PO SCH (21:11)
--- NOTE | 2024-10-17 22:05 | HP ---
Date of Admission: 10/17/2024 Time Of Service: 2 p.m. Chief Complaint: "I had a stroke," although very difficult to communicate that as the patient gestur es and points. History Of Present Illness: Mr. Taylor is an 83-year-old patient, gastroesophageal reflux disease, d iabetes mellitus type 2, dyslipidemia, hypertension, has diastolic congestive heart failure, atrial f ibrillation with flutter, who developed difficulty with communication and articulation, slurred speec h, and was seen at [facility], where his evaluation identified a 15 mm acute ischemic stroke in t he left frontal lobe. In addition, his comorbidities for the atrial fibrillation, for which he is on chronic anticoagulation, diabetes mellitus type 2, hypertension, and dyslipidemia. His speech evalu ation showed close to global aphasia with dysphagia and dysarthria. He did receive anticoagulation a nd monitoring of his blood sugars with insulin sliding scale. His abnormal laboratory studies were e valuated and corrected. He was put on n.p.o. and had his speech evaluated for risk of aspiration. Ry catalan had significant difficulty with his communication. In addition, he had decreased mobility and decr eased physical functioning. Prior to his hospitalization and stroke, he lived at home with his and he has a caregiver from 9 to 5, Tuesday through Tuesday. The patient was requiring standby to cont act guard assistance with ambulation on occasion as he ambulated with a rolling walker. He was able to go to the restroom, but did require assistance with toileting at times. He was able to shower him self, but required assistance with some activities of daily living. He was safe and able to complete household ambulation. Previously, cognitively, he was good with good memory, insight, and communica tion. Currently, he is at a minimum assistance level for mobilization, ambulation, only able to go a bout 10 feet. He requires maximum assistance for most activities of daily living, his orientation fo r his ability to communicate and understand communication. He is at a risk of aspiration and some as piration precautions must be adhered to at all times. He has the oral dysphagia and will require re- evaluation by barium swallow before he can be cleared for full oral diet. He is currently referred t o inpatient rehabilitation for physical, occupational, and speech therapy to help him return to his p rior level of functioning. Rehabilitation is necessary as, if the patient is admitted to a skilled n ursing or discharged home likelihood is that he will have aspiration pneumonia and potentially worsen , potentially up to sepsis and significantly worse outcomes. Past Medical History: Colon cancer in 2008, again gastroesophageal reflux disease, diabetes mellitus type 2, dyslipidemia, hypertension, diastolic congestive heart failure, atrial fibrillation with flu tter. Past Surgical History: Colon resection for colon cancer. Medications: Tylenol 500 mg every 4 hours as needed, Eliquis 5 mg twice daily, Lipitor 40 mg at bedt ly, folic acid 1 mg daily. He has mild insulin sliding scale, melatonin 3 mg at bedtime, metformin 1000 mg twice daily, Toprol-XL 25 mg daily, Protonix 40 mg daily, Senokot 8.6 mg daily. Laboratory Studies: Blood sugars ranged from actually 100 to 102. White blood cell count 9.6, hemog lobin 14.4, hematocrit 43.7, platelets 154. Potassium 4.5, glucose 93, BUN 22, creatinine 1.28, calc ium 9.5, sodium 139. X-ray/imaging: CT scan of his brain on 10/11/2024 shows no evidence of acute intracranial stroke. T here are stable findings as above. Chest CT from 10/11, mild interstitial pulmonary edema suspected. Trace pleural effusion. Heart upper limit of normal. CT angiogram of the head on 10/11 shows no s ignificant abnormalities. Neck CT angiogram on 10/11, no significant abnormalities. Brain MRI on shows a 15 mm acute nonhemorrhagic infarct in the left frontal lobe inferiorly. There were multi ple areas of older chronic infarcts. Echocardiogram on 10/11, normal left ventricular systolic eject ion fraction of 55% to 60%. There is diastolic dysfunction. EKG on 10/11, normal sinus rhythm, low- voltage QRS, borderline EKG. Atrial flutter no longer present. Right bundle branch block no longer present. Family History: Noncontributory. Social History: No alcohol, tobacco, or drug use. The patient lives in single family home with . Does have caregiver, 9 to 5, Tuesday through Tuesday. Review of Systems: Very difficult to fully appreciate. The patient has difficulty with communication. Takes a signific ant amount of communication to help him to comprehend what is said. He eventually will lift his hand and show a thumbs-up or lift his leg if miming is done. Again, review of systems difficult to fully comprehend. Current Level Of Functioning: He is able to eat with supervision to contact guard. His grooming is maximum assistance. Bathing, maximum assistance. Upper body dressing, maximum assistance. Lower aditi dy dressing, maximum assistance. Toileting, maximum assistance. Bed to chair to wheelchair transfer , moderate to maximum assistance. Toilet transfer, maximum assistance. Ambulation, maximum assistan ce and covered just 10 feet. Physical Examination: Vital Signs: Blood pressure 129/71, pulse 83, respiratory rate 18, temperature 97.6, oxygen saturati on 96%. Weight 170 pounds, height 5 feet 5 inches, BMI 28.3. General: Mr. Taylor again is lying comfortably in bed. He appears to be in no acute distress. HEENT: He is normocephalic, atraumatic. Sclerae anicteric. Oropharynx pink and moist. Neck: Supple. Chest: Clear. Heart: Regular. Extremities: No significant clubbing, cyanosis, or edema. Neurologic: In terms of communication, very difficult for him to comprehend what is said and to expr ess himself, very few words. He has very limited expression. Comprehension is to miming and mimicki ng before he can appreciate what is communicated. He has no obvious facial asymmetry or asymmetry of movement of arms and legs bilaterally. His sensation appears to be symmetric bilaterally. His coor dination is intact. His sensation is difficult to fully appreciate. Gait: He will be ambulated wit h gait belt. Physical therapist in tow with wheelchair while he uses a rolling walker. Assessment And Plan: Mr. Taylor is an 83-year-old patient, admitted to the inpatient rehabilitation unit with impairment category 01, stroke. His impairment group code is 01.4, stroke with no paresis, but with expressive and receptive aphasia and some incoordination of his upper and lower extremities on the right side. In addition, he has decreased mobility, decreased physical functioning, diabetes mellitus, hypertension, dyslipidemia, diastolic congestive heart failure, atrial fibrillation with f larissatter. Plan: He is going to have physical, occupational, and speech therapy 3.5 hours, 5 of 7 days. We nany l continue with his Eliquis 5 mg twice daily for his stroke and DVT risk reduction, Tylenol for moder ate pain, folic acid for stroke risk reduction. Continue with insulin mild sliding scale along with metformin 1000 mg twice daily, melatonin 3 mg at night for insomnia, Toprol for heart rate control 25 mg daily, Protonix for GE reflux, Senokot for constipation. Comorbidities That Are Impacting Rehabilitation: His biggest issue is the difficulty with comprehens ion and expression. Given the location of his stroke, he will work constantly and multiple times a d ay, perhaps split up two 30-minute sessions with speech to help as it is the biggest issue, also to w ork on swallowing issue. His dysphagia with risk of aspiration is currently high. Of course, physic al and occupational therapy for him to transfer will be high priority as well. Specific Plan: He will have physical, occupational, and speech therapy again 3.5 hours, 5 of 7 days to improve his ability to transfer from bed to chair to toilet to shower to be able to communicate ef fectively, to be able to eat without aspiration. Mr. Taylor has a fair understanding of the process of admission to the inpatient rehabilitation unit and how he will benefit from physical, occupational, and speech therapy. He will have 24 hours a day , 7 days a week skilled rehabilitation nursing; daily physician evaluation and management; and Manager Php evaluation and management for discharge planning, home equipment, and to continue therapy a fter his discharge. If need be, the hospitalist service will be consulted. Barriers To Discharge: Currently, there is a significant difficulty with comprehension and expressio n, making it difficult for him to go home and be safe. He may require extended stay in skilled nursi ng depending on how much progress is made, and he may require tube feedings depending on how he prote cts the airway. Length Of Stay: At least 2 weeks. Disposition: Expected to be back home to continue therapy via Home Health and with the help of famil y support. Prognosis: Fair. Code Status: Full Code. Rehab Specific Goals: 1. Become independent with upper and lower body dressing, donning/doffing of footwear. Independent w ith transfer from bed to chair to toilet to shower. 2. Independently perform all activities of daily living. 3. To become independent with his drinking thin liquids, eating different consistencies of food and e xpected to be fully independent. Also, he is expected to be able to communicate effectively his want s and needs and be able to comprehend speech, and also perform cognitive functioning independently. The above goals were reviewed with Mr. Taylor and he is in agreement. By signing this document, I acknowledge I personally performed a full physical examination on Mr. Cammy castillo no later than 24 hours after his admission to the inpatient rehabilitation unit and determined th at he is able to tolerate the above course of treatment at an intensive level for a reasonable period of time. A detailed individualized plan of care for him will be completed by hospital day 4 based o n the preadmission screen, history and physical, and therapy evaluations. ITZEL Voice ID: [id number]
[2024-10-18] MEDS ORDERED: METOPROLOL XL 25 MG TAB PO SCH (06:00)
[2024-10-18 07:12] LABS: Absolute Eosinophils 0.2 K/uL (0-0.5); Absolute Lymphocytes (CBC) 1.9 K/uL (0.7-4.9); Absolute Monocytes 0.8 K/uL (0.1-1.3); Absolute Neutrophil 6.9 K/uL (1.8-8.0); Basophils % 0.5 % (0-1.3); Hematocrit 42.7 % (39.6-49.0); Lymphocytes % 19.2 % (15.3-44.8); MCH 27.4 pg (27.0-35.0); MCHC 32.8 g/dL (32.0-36.0); MCV 83.3 fL (80-100); MPV 8.3 fL (7.6-11.3); Neutrophils % 70.3 % (41.7-73.7); Nucleated Red Blood Cells % 0.1 % (0-0); Platelets 157 thou/uL (152-406); RBC Red Blood Cell Count 5.13 M/uL (4.33-5.43)
[2024-10-18 07:25] LABS: Albumin 2.7 g/dL (3.4-5.0); Anion Gap 10.2 mEq/L (5.0-15.0); Potassium 4.2 mEq/L (3.5-5.1); Prealbumin 12.8 mg/dL (20-40)
[2024-10-18] MEDS: METOPROLOL XL 25 MG TAB PO SCH (09:27)
[2024-10-18] MEDS: FOLIC ACID 1 MG TABLET PO SCH (09:29)
[2024-10-18] MEDS: CYANOCOBALAMIN 1000MCG/ML INJ SQ ONE (15:52)
--- NOTE | 2024-10-19 14:08 | P.RH.PN ---
Estimated Length of Stay: 16 Expected Discharge Date: 11/06/24 Vital Signs: Last Vital Signs Temp 97.5 F 10/19/24 07:27 Pulse 85 10/19/24 08:18 Resp 19 10/19/24 07:27 BP 124/80 10/19/24 08:18 Pulse Ox 95 10/19/24 07:27 Laboratory: Laboratory Last Values WBC 9.80 thou/uL (4.3-10.9) 10/18/24 06:36 RBC 5.13 M/uL (4.33-5.43) 10/18/24 06:36 Hgb 14.0 g/dL (13.6-17.9) 10/18/24 06:36 Hct 42.7 % (39.6-49.0) 10/18/24 06:36 MCV 83.3 fL (80-100) 10/18/24 06:36 MCH 27.4 pg (27.0-35.0) 10/18/24 06:36 MCHC 32.8 g/dL (32.0-36.0) 10/18/24 06:36 RDW 16.0 % (12.1-15.2) H 10/18/24 06:36 Plt Count 157 thou/uL (152-406) 10/18/24 06:36 MPV 8.3 fL (7.6-11.3) 10/18/24 06:36 Neutrophils % 70.3 % (41.7-73.7) 10/18/24 06:36 Lymphocytes % 19.2 % (15.3-44.8) 10/18/24 06:36 Monocytes % 8.0 % (3.3-12.3) 10/18/24 06:36 Eosinophils % 2.0 % (0-4.4) 10/18/24 06:36 Basophils % 0.5 % (0-1.3) 10/18/24 06:36 Absolute Neutrophils 6.9 K/uL (1.8-8.0) 10/18/24 06:36 Absolute Lymphocytes 1.9 K/uL (0.7-4.9) 10/18/24 06:36 Absolute Monocytes 0.8 K/uL (0.1-1.3) 10/18/24 06:36 Absolute Eosinophils 0.2 K/uL (0-0.5) 10/18/24 06:36 Absolute Basophils 0.0 K/uL (0-0.5) 10/18/24 06:36 Sodium 140 mEq/L (136-145) 10/18/24 06:36 Potassium 4.2 mEq/L (3.5-5.1) 10/18/24 06:36 Chloride 110 mEq/L (98-107) H 10/18/24 06:36 Carbon Dioxide 24 mEq/L (21-32) 10/18/24 06:36 Anion Gap 10.2 mEq/L (5.0-15.0) 10/18/24 06:36 BUN 26 mg/dL (7-18) H 10/18/24 06:36 Creatinine 1.45 mg/dL (0.70-1.30) H 10/18/24 06:36 Est GFR (CKD-EPI) 47 ml/min (=/>90) L 10/18/24 06:36 Glucose 91 mg/dL (74-106) 10/18/24 06:36 POC Glucose 85 mg/dL (65-120) 10/19/24 11:36 Calcium 9.1 mg/dL (8.5-10.1) 10/18/24 06:36 Magnesium 2.0 mg/dL (1.6-2.4) 10/18/24 06:36 Albumin 2.7 g/dL (3.4-5.0) L 10/18/24 06:36 Prealbumin 12.8 mg/dL (20-40) L 10/18/24 06:36 Weight: 170 lb Physician Update: Labs reviewed and are stable but mildly dehydrated. 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 Will start duloxetine 30 mg daily. RW 60' taking 15 minutes. He takes small steps when walking. Poor balance. Will start megace for poor appetite. Will start and IV due to dehydration evidenced by very dark urine. Summary: Patient's care plan and manager intermediate goals have been reviewed and revised as necessary. Please see the Rehabilitation Signature page for all necessary signatures.
[2024-10-19] MEDS: DULOXETINE 30 MG CAP PO SCH (20:13)
[2024-10-19] MEDS: MEGESTROL 40 MG TAB PO SCH (20:13)
--- NOTE | 2024-10-20 19:03 | PN ---
Date of Progress Note: 10/20/2024 Time Of Service: 3:30 p.m. Subjective: Mr. Taylor is resting comfortably in no significant distress. Has no new complaints. T he patient's stroke which affected left frontal region did not do significant difficulty in terms of weakness, but with his expression, left him with an expressive aphasia, in the differential actually mixed aphasia, some mild difficulty with comprehension, but more with his expression. Objective: No fevers, chills, nausea, vomiting. No significant myalgias, arthralgias, or rash. Physical Examination: Vital Signs: Blood pressure 143/84, pulse 81, respiratory rate 16, temperature 97.3, oxygen saturati on 95%. General: Brandon is resting comfortably, in no significant distress, difficulty with communication, w ith his expression. He has decreased verbal fluency, difficulty with naming. Neurologic: Some mild but diffuse and nonfocal weakness of lower extremities. Laboratory Studies: White blood cell count 9.8, hemoglobin 14.0, platelets 157. Sodium 140, potassi um 4.2, chloride 110, carbon dioxide 24, BUN 26, creatinine 1.45. Hemoglobin A1c of 5.5. Prealbumin 12.8, albumin 2.7, magnesium 2.0, calcium 9.1. X-ray/imaging: No new x-rays or imaging. Medications: Tylenol 500 mg every 4 hours as needed, Eliquis 5 mg twice daily, Lipitor 40 mg at bedt ly. He is on Cymbalta 30 mg at bedtime, folic acid 1 mg daily, Megace 40 mg twice daily, melatonin 3 mg at bedtime, metformin 1000 mg twice daily, Toprol 25 mg daily, Protonix 40 mg daily, Senokot 8.6 mg at bedtime. Progress Made With Physical, Occupational Therapy: With physical therapy multiple fnr-ec-[id number] trans fers done with contact guard assistance using a rolling walker. He is able to ambulate 60 feet twice with minimal assistance using a rolling walker. Emphasis placed on upright posture. With occupatio nal therapy, needed standby assistance for supine to edge of bed and minimum assistance for lifting h is legs from edge of bed. Maximal assistance for toileting, dependent for toilet hygiene. With Saba castañeda, completed team meeting and worked on the patient's ability to recall safety awareness issues. He did answer yes/no questions with 100% accuracy. Auditory recognition in a field of 2 was completed with 50% accuracy, names of objects named with 60% accuracy. Still has nonfluent expressive aphasia. Assessment: Mr. Taylor is an 83-year-old patient admitted to rehabilitation unit with left frontal s troke and expressive aphasia with decreased or non fluent expressive aphasia. He does have decreased mobility, decreased physical functioning in addition to poor appetite, he has features of depression , constipation, GE reflux, diabetes mellitus, hypertension, dyslipidemia. Plan: Will continue with physical, occupational, speech therapy for 3-1/2 hours, 5/7 days. His list of comorbid condition medications has been continued. Comorbidities That Are Impacting Rehabilitation: The patient endorsed features of depression. He is now on antidepressants, also had poor appetite and is on Megace to help with that. MARYJO/BRYAN Voice ID: [id number] Report ID: [id number]
[2024-10-21] MEDS: NA CHLORIDE 0.9% 1,000 ML IV SCH (18:35)
--- NOTE | 2024-10-22 10:58 | P.CNS ---
Date of Consult: 10/22/24 Reason for Consult: painful toenails Allergies codeine [Codeine] Allergy (Verified 02/19/23 16:29) Nausea/Vomiting [place] Allergy (Uncoded 10/06/13 23:32) Nausea/Vomiting Home Medications: Metformin ER [Glucophage ER*] 1,000 mg PO BIDWM 10/12/24 Metoprolol Succinate [Toprol Xl*] 25 mg PO DAILY 10/12/24 Omeprazole [Prilosec] 40 mg PO DAILY 10/12/24 Apixaban [Eliquis] 5 mg PO BID 10/17/24 Atorvastatin Calcium [Lipitor] 40 mg PO BEDTIME 30 Days #30 tab 10/17/24 Folic Acid 1 mg PO DAILY 30 Days #30 tab 10/17/24 - Past Medical/Surgical History Diabetic: No -: Colon CA, 2009, Oncology-Dr. Reeves -: GERD, GI-Dr. Vasquez -: DM2 -: HLD -: HTN -: CHF diastolic -: A-fib/flutter -: Colon Resection 2008 Psychosocial/ Personal History: Lives at home with his - Social History Smoking Status: Former smoker (He currently dips) Alcohol use: No CD- Drugs: No Caffeine use: No Place of Residence: Home Review of Systems 10-point ROS is otherwise unremarkable Physical Examination Temp Pulse Resp BP Pulse Ox 97.9 F 82 18 131/73 98 10/22/24 06:28 10/22/24 06:28 10/22/24 06:28 10/22/24 06:28 10/22/24 06:28 General: Alert, In no apparent distress, Oriented x3 Cardiovascular: No edema, Abnormal pulses (0/4 dp and pt pulses bilateral) Capillary refill: <2 Seconds Musculoskeletal: No clubbing, No swelling, No contractures, No erythema, No tenderness, No warmth Integumentary: No rashes, No breakdown, No significant lesion, No tenderness/swelling, No erythema, No warmth, No cyanosis, Other (Thickened hypertrophic bilateral hallux nails with subungual debris, elongated toenails 2- 5 bilateral) Neurological: Sensation intact - Problems (1) care home (current) use of anticoagulants Current Visit: Yes Status: Acute (2) Tinea unguium Current Visit: Yes Status: Acute (3) Onychogryphosis Current Visit: Yes Status: Acute (4) Generalized atherosclerosis Current Visit: Yes Status: Acute Conclusions/Impression: Debridment of nails at bedside
[2024-10-22] MEDS: ENSURE CLEAR 200 ML CAN PO SCH (20:59)
[2024-10-22] MEDS: D5 0.45 NS 1,000 ML IV SCH (21:40)
--- NOTE | 2024-10-23 01:08 | PN ---
Date of Progress Note: 10/22/2024 Time Of Service: 1:35 p.m. Subjective: Mr. Taylor is resting comfortably. He has no acute distress. Has no complaints. Recov ering well in terms of the use of his right lower extremity where stroke is affecting his left brain. Objective: No fevers, chills, nausea, vomiting, myalgias, arthralgias, rash. No other complaints. Physical Examination: Vital Signs: Blood pressure 131/73, pulse 82, respiratory rate 18, temperature 97.9, oxygen saturati on 98%. General: Again, Mr. Taylor is resting comfortably. He is in no significant distress. HEENT: Appears to be normocephalic, atraumatic. Sclerae anicteric. Oropharynx pink and moist. Neck: Supple. Chest: Clear. Neurological: He does have the expressive aphasia, mild difficulty with comprehension. Stroke does not cause significant weakness. Laboratory Studies: Blood sugars ranged from 72 to 91. X-ray/imaging: No new x-rays or imaging. Consultations: The patient was seen by Dr. Hector Travis, Podiatry Service. He did debridement of th e toenails at the bedside. Progress Made With Physical, Occupational, And Speech Therapy: Today, with physical therapy, complet ed bed mobility, turning in bed with [id number] transfers with minimum assistance. Ambulated 20 f eet with moderate assistance using a rolling walker. Mobilized a wheelchair 50 feet 3 times with min imum assistance, needed repetitive cuing. With occupational therapy, contact guard assistance for be d mobility, supine to edge of bed. He was able to demonstrate fair unsupported balance at edge of be d. Worked at the sink with oral hygiene, face washing, teeth brushing. With speech, answered simple yes/no questions with 90% accuracy. Phrases completed with 30% accuracy. Object pictures naming, 6 0% accuracy. Assessment And Plan: Mr. Taylor is an 83-year-old patient in rehabilitation unit with a stroke, whic h affected expression and comprehension more than strength. He has decreased mobility, decreased phy sical functioning, deep venous thrombosis risk, dyslipidemia, depression. Poor appetite, now has Denise ceferino on board. He has diabetes mellitus, has metformin also on board. He has sodium chloride IV flui d going. The patient's family at the bedside were worried about his poor appetite and said he did no t like hospital food. They will be bringing food from the outside. They were told to bring it to [facility] nurses' station so that the contents can be evaluated and the amount he eats can be documented. Ot herwise, the patient again will continue with physical, occupational, and speech therapy. Continue w ith all comorbid condition medications and again he is allowed to bring some food from home, and the patient will continue again with medications. At the time of discharge, he may require skilled nursi ng as his progress is slow so far and at home his is not able to assist him if he is to fall or require significant help. MARYJO/BRYAN Voice ID: [id number] Report ID: [id number]
--- NOTE | 2024-10-24 09:33 | RAD REPORT ---
EXAMINATION: ONE VIEW CHEST XR CLINICAL INDICATION: cough/ congestion TECHNIQUE: Frontal chest projection is submitted. Examination is limited by patient positioning and t echnique. COMPARISON: 10/11/2024 FINDINGS: Mild asymmetric interstitial opacities are present, greater on the left. This may represent interstit ial pulmonary edema or bronchitis. The heart is upper limit of normal in size. No displaced fractures identified.
--- NOTE | 2024-10-24 23:44 | PN ---
Date of Progress Note: 10/24/2024 Time Of Service: 1:20 p.m. Subjective: Mr. Taylor is resting comfortably in bed in no acute distress. He is very happy so far with therapy. His left pontine stroke with right-sided weakness of course is still there and he is m aking fair overall progress with movement of his right lower extremity, which is more impacted than h is right upper extremity or face. Review of Systems: No fevers, chills, nausea, vomiting. No significant myalgias, arthralgias. No rash or other complai nts. Physical Examination: Vital Signs: Blood pressure is 122/68. His pulse ranged 83 to 103, respiratory rate 16 to 20, tempe rature 98.0, O2 saturation 94%. Weight 170 pounds, height 5 feet 5 inches, BMI 28.3. General: Again, Mr. Taylor is in between therapy sessions. So far, very happy with progress. He is in no acute distress. HEENT: Normocephalic, atraumatic. Sclerae anicteric. Oropharynx pink, moist. Neck: Supple. Chest: Clear. Extremities: His right lower extremity has 4/5 strength. Upper extremity on the right is 5-. Left side full strength. No loss there. Laboratory Studies: No new laboratory studies since the . Complete blood count with differenti al is normal. Blood sugars ranged from 81 to 131. X-ray/imaging: A chest x-ray was done earlier today with worry of potential aspiration. The study d id show asymmetric interstitial opacities present greater on the left, may represent interstitial pul monary edema or bronchitis. Heart noted to be upper limit of normal. No displaced fractures. The p atient did receive actually a total of about 3 L of normal saline as his intake was very little. He is encouraged to use incentive spirometry very regularly. His IV fluids have been held at this point as now he is actually doing much better, more alert and again he is encouraged to increase oral hydr ation. Progress Made With Physical, Occupational, And Speech Therapy: With physical therapy today, he did m ultiple [id number]-[id number] transfers and oerpd-ee-fgxei transfers with minimal assistance. Did complete wh eelchair exercises, knee extension and flexion, abduction and abduction. He was able to ambulate 20 feet, 30 feet with a rolling walker with contact guard to minimum assistance. He propelled a wheelch air 90 feet and 60 feet with cuing for all physical management. Regarding his occupational therapy, dependent for toilet hygiene due to impaired dynamic standing balance. Required contact guard assist ance for eka-qj-bmxzh transfers and toilet transfers using grab bar. Regarding speech, he did read a t the word level 70% accuracy with maximum verbal cues required. Yes/no questions were answered with 80% accuracy. He identified objects in visual field with 40% accuracy. He did have a bedside swall ow evaluation with no overt signs of aspiration. Assessment And Plan: Mr. Taylor is an 83-year-old patient in rehabilitation unit with an ischemic st roke in the left yana. He does have right lower extremity more than upper extremity weakness and inc oordination, but he is still doing very well. Some dysarthria, some dysphagia are noted. In additio n, he has decreased mobility, decreased physical functioning, dyslipidemia, stroke risk, DVT risk. Ry catalan has depression. He is actually improving on some Cymbalta. He has poor appetite addressed with Me gurrola and his intake is better and actually earlier today, the family did note since he did not like h ospital food, they brought a hamburger and he ate the entire burger where he was eating about 50% of hospital food. The patient is encouraged to eat a more healthy diet. Of course, family will bring h im special diet from outside. They are encouraged to make better choices. His diabetes mellitus of course is addressed with metformin 1000 mg twice daily, metoprolol for heart rate and blood pressure control, Protonix for GE reflux, Senokot S for constipation and for plan again, continue with physica l, occupational, and speech therapy 3.5 hours, 5 of 7 days. He will continue all comorbid condition medications that he is doing. He again is encouraged to make good choices to reduce risk of additional strokes and myocardial infarctions. LB/MODL Voice ID: [id number] Report ID: [id number]
[2024-10-25 06:24] LABS: Absolute Eosinophils 0.2 K/uL (0-0.5); Absolute Lymphocytes (CBC) 1.8 K/uL (0.7-4.9); Absolute Monocytes 0.6 K/uL (0.1-1.3); Absolute Neutrophil 4.2 K/uL (1.8-8.0); Basophils % 0.5 % (0-1.3); Eosinophils % 2.6 % (0-4.4); Hematocrit 37.2 % (39.6-49.0); Hemoglobin 12.6 g/dL (13.6-17.9); Lymphocytes % 26.9 % (15.3-44.8); MCH 27.9 pg (27.0-35.0); MCHC 33.7 g/dL (32.0-36.0); MCV 82.9 fL (80-100); MPV 8.8 fL (7.6-11.3); Monocytes % 8.6 % (3.3-12.3); Neutrophils % 61.4 % (41.7-73.7); Nucleated Red Blood Cells % 0.1 % (0-0); Platelets 125 thou/uL (152-406); RBC Red Blood Cell Count 4.49 M/uL (4.33-5.43); Red Cell Distribution Width 16.4 % (12.1-15.2)
[2024-10-25 06:46] LABS: Albumin 2.5 g/dL (3.4-5.0); Anion Gap 9.5 mEq/L (5.0-15.0); Magnesium 1.6 mg/dL (1.6-2.4); Potassium 3.5 mEq/L (3.5-5.1); Prealbumin 13.6 mg/dL (20-40)
--- NOTE | 2024-10-25 08:06 | RAD REPORT ---
EXAM: XR of the abdomen HISTORY: Abdominal pain r/o constipation COMPARISON: 02/26/2023 FINDINGS: XR of the abdomen shows a nonspecific, nonobstructive bowel gas pattern. Mild gaseous diste ntion of small and large bowel loops seen. This would favor ileus. Moderate dextroscoliosis of the lumbar spine. No pathologic calcifications.
--- NOTE | 2024-10-25 10:31 | RAD REPORT ---
Modified barium swallow exam with speech pathology service HISTORY: r/o dysphagia Fluoroscopy Time: 3 minutes and 15 seconds IMPRESSION: Please see the speech pathology service report for details. Barium contrast of multiple consistencies was provided the patient orally by the speech pathology dep artment. Fluoroscopic observation was performed during swallowing. The radiologist was not present for the examination. Mild delay in onset of swallow with premature posterior spillage.
--- NOTE | 2024-10-25 22:50 | PN ---
Date of Progress Note: 10/25/2024 Time Of Service: 1:25 p.m. Subjective: Mr. Taylor is ambulating down the hallways, doing better with his ability to mobilize. He does have a left pontine stroke, right-sided weakness, but is making good progress as he is ambula ting, has to be encouraged to move the right leg and hand as he is trying to ambulate with a rolling walker. Review of Systems: No fevers, chills, nausea, vomiting, myalgias, arthralgias. No rash, headache, weight change. Physical Examination: Vital Signs: Blood pressure 117/71, pulse 86, heart rate 18, temperature 97.7, oxygen saturation 98% . Weight 170 pounds, height 5 feet 5 inches, BMI 28.3. General: Mr. Taylor is ambulating well. He is doing well, mobilizing in the unit. Again doing quit e well. HEENT: He does appear normocephalic, atraumatic. Sclerae anicteric. Has moderate weakness in the r ight lower extremity, making it difficult for him to move the leg forward, but still is doing it very well while holding onto the walker, although he is slow and requiring encouragement. Laboratory Studies: White blood cell count 6.9, hemoglobin 12.6, platelets 125. Sodium 142, potassi um 3.5, chloride 114, carbon dioxide 22, BUN 16, creatinine 1.19, glucose ranged from 91 to 106, calc ium 8.7. Magnesium 1.6. Albumin 2.5, prealbumin 13.6. X-ray/imaging: He had today a modified barium swallow study and KUB. Modified barium swallow study showed patient worked on multiple consistencies and he had mild delay in onset of swallowing with pre mature posterior spillage. KUB x-ray was done. The study showed nonobstructive bowel gas pattern. Mild gas distention of small and large bowel loops, would favor an ileus. There is moderate dextrosc oliosis of the lumbar spine. Regarding his speech pathologist and his report of the modified barium swallow study, there was mild delay in anterior-posterior transition of the bolus with thickened cons istencies. There was premature posterior spillage. There was mild impairment in pharyngeal phase, m ild delay in onset of his swallow and pooling with vallecula prior to swallowing. The patient is abl e to drink liquids. He should be upright at 90 degrees. The patient managed those consistencies wel l and the speech pathologist determined that no swallowing treatment was recommended. Assessment And Plan: He does have the left pontine stroke with right-sided weakness. He has decreas ed mobility, decreased physical functioning, depression. He is on Eliquis. He has dyslipidemia, on Lipitor. He has Eliquis for stroke risk reduction. He has folic acid for stroke risk reduction as w ell. He has Megace for poor appetite, melatonin for insomnia, metformin for diabetes mellitus, Topro l-XL for hypertension, Protonix for GE reflux, Senokot for constipation. We will continue with physi meli, occupational, and speech therapy 3.5 hours, 5 of 7 days. LB/MODL Voice ID: [id number] Report ID: [id number]
--- NOTE | 2024-10-26 13:44 | P.RH.PN ---
Estimated Length of Stay: 16 Expected Discharge Date: 10/31/24 Discharge Disposition Plan: Home Family Support: Yes Care Home Goal: Mobility, Transfers, Self Care Vital Signs: Last Vital Signs Temp 97.7 F 10/26/24 08:00 Pulse 81 10/26/24 08:21 Resp 18 10/26/24 08:00 BP 125/71 10/26/24 08:21 Pulse Ox 98 10/26/24 08:00 Laboratory: Laboratory Last Values WBC 6.90 thou/uL (4.3-10.9) 10/25/24 05:51 RBC 4.49 M/uL (4.33-5.43) 10/25/24 05:51 Hgb 12.6 g/dL (13.6-17.9) L 10/25/24 05:51 Hct 37.2 % (39.6-49.0) L 10/25/24 05:51 MCV 82.9 fL (80-100) 10/25/24 05:51 MCH 27.9 pg (27.0-35.0) 10/25/24 05:51 MCHC 33.7 g/dL (32.0-36.0) 10/25/24 05:51 RDW 16.4 % (12.1-15.2) H 10/25/24 05:51 Plt Count 125 thou/uL (152-406) L 10/25/24 05:51 MPV 8.8 fL (7.6-11.3) 10/25/24 05:51 Neutrophils % 61.4 % (41.7-73.7) 10/25/24 05:51 Lymphocytes % 26.9 % (15.3-44.8) 10/25/24 05:51 Monocytes % 8.6 % (3.3-12.3) 10/25/24 05:51 Eosinophils % 2.6 % (0-4.4) 10/25/24 05:51 Basophils % 0.5 % (0-1.3) 10/25/24 05:51 Absolute Neutrophils 4.2 K/uL (1.8-8.0) 10/25/24 05:51 Absolute Lymphocytes 1.8 K/uL (0.7-4.9) 10/25/24 05:51 Absolute Monocytes 0.6 K/uL (0.1-1.3) 10/25/24 05:51 Absolute Eosinophils 0.2 K/uL (0-0.5) 10/25/24 05:51 Absolute Basophils 0.0 K/uL (0-0.5) 10/25/24 05:51 Sodium 142 mEq/L (136-145) 10/25/24 05:51 Potassium 3.5 mEq/L (3.5-5.1) 10/25/24 05:51 Chloride 114 mEq/L (98-107) H 10/25/24 05:51 Carbon Dioxide 22 mEq/L (21-32) 10/25/24 05:51 Anion Gap 9.5 mEq/L (5.0-15.0) 10/25/24 05:51 BUN 16 mg/dL (7-18) 10/25/24 05:51 Creatinine 1.19 mg/dL (0.70-1.30) 10/25/24 05:51 Est GFR (CKD-EPI) 60 ml/min (=/>90) L 10/25/24 05:51 Glucose 106 mg/dL (74-106) 10/25/24 05:51 POC Glucose 105 mg/dL (65-120) 10/26/24 07:20 Hemoglobin A1c 5.5 % (4.2-6.3) 10/18/24 15:37 Calcium 8.7 mg/dL (8.5-10.1) 10/25/24 05:51 Magnesium 1.6 mg/dL (1.6-2.4) 10/25/24 05:51 Albumin 2.5 g/dL (3.4-5.0) L 10/25/24 05:51 Prealbumin 13.6 mg/dL (20-40) L 10/25/24 05:51 Weight: 170 lb Wound Present: No Closed Surgical Incision Present: No Negative Pressure Wound Therapy Present: No Physician Update: Labs stable with mildly low preabumin. Stage I on his sacrum. Poor cognition, no significant speech progress. Severe expressive aphasia, paraphasic errors. CGA with bed mobility, car transfers as well. RW 80' x 2 with CGA. Mild improvement with OT. Min assist with most ADLs, max assist with toileting. Min assist lower body and foot wear. Min assist bathing. Summary: Patient's care plan and usp goals have been reviewed and revised as necessary. Please see the Rehabilitation Signature page for all necessary signatures.
[2024-10-26] MEDS: BISACODYL 10 MG RECTAL SUPP PR ONE (16:49)
[2024-10-27 05:05] VITALS: BMI 28.0
[2024-10-29] MEDS ORDERED: CRANBERRY FRUIT EXTRACT 425 MG CAPSULE PO SCH (20:00)
[2024-10-29] MEDS: MEGESTROL 400 MG/10 ML UCUP PO SCH (20:01)
--- NOTE | 2024-10-30 01:58 | PN ---
Date of Progress Note: 10/29/2024 Time Of Service: 1:30 p.m. Subjective: Mr. Taylor is sitting in a chair beside bed. His is at the bedside. He is not lety y communicative today, but does answer questions after repeated encouragement. Noted to be perhaps s omewhat more sleepy today by the therapists, although he still participated with encouragement. Review of Systems: There is no reported chills, fever, nausea, or vomiting. No myalgias, arthralgias. Physical Examination: Vital Signs: Blood pressure 129/73, pulse 84, respiratory rate 16, temperature 97.4, oxygen saturati on 92%. General: Again, Mr. Taylor is resting comfortably. He is not eating his lunch meal well, ate his br eakfast very well. Now with the breakfast, his did indicate he seems to not have a good appetit e, instead eats for lunch. The patient, however, wants food outside of the hospital like burgers, wh ich he did have last week. Laboratory Studies: No new laboratory studies except blood sugars ranged from 64 to 95. X-ray/imaging: No new x-rays or imaging. Progress Made With Physical, Occupational, And Speech Therapy: Today, with physical therapy, did sup ine-to-sit transfers with minimum assistance. He did ambulate with a rolling walker 15 feet and 25 f eet with contact guard assistance. Mobilized wheelchair 50 feet with minimum assistance and verbal c ues. With occupational therapy, contact guard assistance with impaired standing, for stand pivot tra nsfers. Contact guard assistance for bathing due to impaired standing balance and for transfers. Lo wer body dressing also contact guard assistance. It is noted that later on the day did ambulate 160 feet with contact guard assistance. Car transfer done with maximum assistance. With speech therapy, demonstrated auditory word recognition in a field of 2 with 70% accuracy. Objective pictures named with 40% accuracy. He did continue to demonstrate a nonfluent expressive aphasia. Assessment: Mr. Taylor is an 83-year-old patient in the rehabilitation unit with a left frontal stro ke producing expressive aphasia that is nonfluent. He has decreased mobility, decreased physical fun ctioning, depression, dyslipidemia, insomnia, poor appetite, diabetes mellitus, hypertension, gastroe sophageal reflux, constipation. Plan: Continue with physical, occupational, and speech therapy for 3.5 hours, 5 of 7 days. He does have on board Tylenol for pain, Eliquis 5 mg twice daily for DVT prophylaxis, Lipitor for dyslipidemi a. We will continue duloxetine for depression and neuropathic pain. Megace now increased to 400 mg twice daily for poor appetite. Metformin 1000 mg twice daily for diabetes mellitus control, Toprol f or blood pressure control, Senokot for constipation, Protonix for GE reflux. Note, the patient is no t ready to be discharged home. [facility] therapy in [place]. MARYJO/BRYAN Voice ID: [id number] Report ID: [id number]
[2024-10-30 08:54] LABS: Absolute Eosinophils 0.2 K/uL (0-0.5); Absolute Lymphocytes (CBC) 1.6 K/uL (0.7-4.9); Absolute Monocytes 0.5 K/uL (0.1-1.3); Absolute Neutrophil 4.5 K/uL (1.8-8.0); Basophils % 0.4 % (0-1.3); Eosinophils % 2.7 % (0-4.4); Hematocrit 39.2 % (39.6-49.0); Lymphocytes % 23.3 % (15.3-44.8); MCHC 33.3 g/dL (32.0-36.0); MCV 84.1 fL (80-100); MPV 8.1 fL (7.6-11.3); Neutrophils % 66.6 % (41.7-73.7); Nucleated Red Blood Cells % 0.1 % (0-0); Platelets 146 thou/uL (152-406); RBC Red Blood Cell Count 4.66 M/uL (4.33-5.43); Red Cell Distribution Width 16.8 % (12.1-15.2)
[2024-10-30 09:14] LABS: Albumin 2.8 g/dL (3.4-5.0); Anion Gap 9.8 mEq/L (5.0-15.0); Magnesium 1.3 mg/dL (1.6-2.4); Potassium 3.8 mEq/L (3.5-5.1)
[2024-10-30] MEDS: CRANBERRY FRUIT EXTRACT 425 MG CAPSULE PO SCH (09:22)
[2024-10-30] MEDS: MAGNESIUM OXIDE 400 MG TAB PO SCH (19:27)
--- NOTE | 2024-10-30 22:03 | PN ---
Date of Progress Note: 10/30/2024 Time Of Service: 1:30 p.m. Subjective: Mr. Taylor is in the shower area. He is transferring from the chair into the tub with a tub transfer bench. He denies any significant pain. He is very slow to respond. He has expressive aphasia, which is noted. Review of Systems: No fevers, chills, nausea, vomiting. No myalgias, arthralgias. No other complaints. Physical Examination: Vital Signs: Blood pressure is 129/79, pulse 81, respiratory rate 18, temperature 98.2, oxygen satur ation 96%. General: Again, Mr. Taylor is sitting in the chair and doing a transfer into the tub. HEENT: He is normocephalic, atraumatic. Sclerae anicteric. Oropharynx moist. Neck: Supple. Chest: Clear. Heart: Regular. Laboratory Studies: White blood cell count 6.8, hemoglobin 13, platelets are 146. Sodium 138, potas sium 3.8, chloride 107, carbon dioxide 22, BUN 13, creatinine 1.18, glucose ranged from 78 to 124. C alcium 9.3, magnesium 1.3, albumin 2.8. Prealbumin 14.0. X-ray/imaging: No new x-rays or imaging. Progress Made With Physical, Occupational, And Speech Therapy: Today, with physical therapy, he did dcaamn-pl-xmg transfers with minimum assistance. Jbmtd-yb-cbfmh transfers done with minimum assistan ce. He ambulated 20 feet and 25 feet with contact guard assistance using a rolling walker. He mobil ized a wheelchair 40 feet with minimum assistance and verbal cues for avoiding obstacles. With occup ational therapy, contact guard assistance for cnt-nm-jarhc transfers and toilet transfers. Maximal a ssistance for toilet hygiene, assisting pulling up and down shorts and buttoning on buttoning pants. He did have a slow pace as he was performing activities. With speech, today, he did improve his BIM S score from a 3/15 to 5/15. On the [place] Test, he improved from 18% to 40%. Still signific ant help needed. He is actually to be transferred to nursing home to continue therapy as he is un able to go home safely and family unable to manage the significant need and to minimize his risk of f alling. Assessment: Mr. 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 He has decre ased mobility, decreased physical functioning, significant cognitive deficits. Still has dyslipidemi a, risk of stroke with atrial fibrillation, and depression. He has poor appetite, diabetes mellitus, hypertension, gastroesophageal reflux. Plan: Will continue with physical, occupational, and speech therapy until discharge. He will be fol lowing up with neurologist and primary care physician after his discharge. He will continue all ther apy as indicated. His magnesium level is low. We will make sure he is on the increased dosage of ma gnesium 400 mg twice daily. LB/MODL Voice ID: [id number] Report ID: [id number]
--- NOTE | 2024-11-01 00:24 | PN ---
Date of Progress Note: 10/31/2024 Time Of Service: 1:25 p.m. Subjective: Mr. Taylor is in the room. Therapist at bedside. Still slow to respond, but he is henry ng some progress with his therapy. Still has significant expressive aphasia, would not answer to que stions and have minimal speech. Review of Systems: No fevers, chills, nausea, vomiting. No significant myalgias, arthralgias. No rash. No other issue s. Physical Examination: Vital Signs: Blood pressure is 146/69, pulse 86, respiratory rate 18, temperature 98.6, oxygen satur ation 95%. General: Mr. Taylor again is sitting comfortably in chair, does keep his head bowed down much and he has the difficulty with expression. He has no obvious external signs of his stroke such as face, ar m, leg numbness or weakness, but has diffuse weakness of upper and lower extremities. Laboratory Studies: No new laboratory studies except blood glucose ranged from 94 to 196. X-ray/imaging: No new x-rays or imaging. Medications: Have been reviewed and remain unchanged. Progress Made With Physical, Occupational, And Speech Therapy: With physical therapy today, he did m ultiple jus-kf-vjkyu transfers and iigzh-yi-lsymr transfers with standby assistance. He did ambulate 30 feet 3 times with minimum assistance. Some difficulty shifting his weight in the left lower extr emity especially and he did not walk much later on in the day. With occupational therapy, dependent for toilet hygiene. He has incontinent episode at the side of bed and did have some difficulty with his rolling sgdq-wc-edvts, wbzfj-aw-truh, supervision required and with his speech, he did answer yes and no questions with 100% accuracy. Word recognition in a field of 2 was demonstrated with 100% ac curacy. He did name objects with 90% accuracy. His speech therapist note his session was better in terms of today than he did previously. His was present throughout the session and she noted he met 3 of 4 short-term goals and 1 of long-term goal. Assessment: Mr. Taylor is an 83-year-old patient in rehabilitation unit with ischemic left frontal s troke with expressive aphasia. He is making fair progress overall with speech, physical, and occupat ional therapy, but still has long way to go. At this point, he is more appropriate for skilled nursi ng and that was achieved today. He will be discharged tomorrow to detention. He also has leo rbidities of decreased mobility, decreased physical functioning, dyslipidemia, stroke risk, depressio n, mild malnutrition, poor appetite, constipation, GE reflux, hypertension. Plan: He will continue with physical, occupational, and speech therapy until discharge. Continue wi th comorbid condition medications as noted. He will be discharged to detention. Medications w ill be continued. He will follow up with Neurology and primary care physician as scheduled. MARYJO/BRYAN Voice ID: [id number] Report ID: [id number]
[2024-11-01 06:45] VITALS: BP 138/75; TEMP 98.2
== END 2024-11-01 13:48 | DRG 57 ==
LOC: 5TH 11:08
PROVIDERS: ADMIT Psychiatry & Neurology Neurology with Special Qualifications in Child Neurology; ATTEND Psychiatry & Neurology Neurology with Special Qualifications in Child Neurology
PROC: 0HBRXZZ Excision of Toe Nail, External Approach (ICD-10-PCS; principal; 2024-10-22)
PROC: 0HBRXZZ Excision of Toe Nail, External Approach (ICD-10-PCS; 2024-10-22)
PROC: 0HBRXZZ Excision of Toe Nail, External Approach (ICD-10-PCS; 2024-10-22)
PROC: 0HBRXZZ Excision of Toe Nail, External Approach (ICD-10-PCS; 2024-10-22)
PROC: 0HBRXZZ Excision of Toe Nail, External Approach (ICD-10-PCS; 2024-10-22)
PROC: 0HBRXZZ Excision of Toe Nail, External Approach (ICD-10-PCS; 2024-10-22)
PROC: 0HBRXZZ Excision of Toe Nail, External Approach (ICD-10-PCS; 2024-10-22)
PROC: 0HBRXZZ Excision of Toe Nail, External Approach (ICD-10-PCS; 2024-10-22)
DX: I69.320 Aphasia following cerebral infarction (principal); E44.1 Mild protein-calorie malnutrition; I50.30 Unspecified diastolic (congestive) heart failure; I69.322 Dysarthria following cerebral infarction; I69.391 Dysphagia following cerebral infarction; I69.398 Other sequelae of cerebral infarction; E78.5 Hyperlipidemia, unspecified; B35.1 Tinea unguium; L60.2 Onychogryphosis; I48.91 Unspecified atrial fibrillation; K21.9 Gastro-esophageal reflux disease without esophagitis; G47.00 Insomnia, unspecified; E11.9 Type 2 diabetes mellitus without complications; I11.0 Hypertensive heart disease with heart failure; R27.8 Other lack of coordination; F32.A Depression, unspecified; K59.00 Constipation, unspecified; Z79.01 Long term (current) use of anticoagulants; Z68.28 Body mass index [BMI] 28.0-28.9, adult; Z85.038 Personal history of other malignant neoplasm of large intestine
CPT/HCPCS: 36415; 71045; 74018; 74230; 80048; 82040; 82947; 83036; 83735; 84134; 85025; 92507; 92523; 92611; 94010; 97110; 97112; 97116; 97129; 97161; 97165; 97530; 97542; J1815; J3420; J7030; J7799